=== PATIENT | female | born 1955 | race Caucasian/White ===

== ENCOUNTER 2020-07-28 13:13 | Inpatient (IN) | payer SELFPAY ==
[~2020-07-28] VITALS: Ht 157.5 cm; Wt 89.6 kg
[2020-07-28] MEDS ORDERED: NS IV 1000 ML 1,000 ML IV SCH ×2 (14:30→15:00)
--- NOTE | 2020-07-28 14:34 | ED GI ---
General Chief Complaint: Abdominal/GI Problems Stated Complaint: DIARRHEA/WEAKNESS Source of Information: Patient Exam Limitations: No Limitations History of Present Illness Date Seen by Provider: Jul 28, 2020 Time Seen by Provider: 14:32 Initial Comments To ER with reports of diarrhea and general weakness. She is had some intermitte nt abdominal cramping's and chills last week. No fever since then and feels better in that regard. Her diarrhea is mucousy but no apparent blood. This began after starting clindamycin for a dental and/or sinus infection on 06/29. She was taking a probiotic with as well but doesn't notice much improvement. Timing/Duration: Other Severity/Quality: Cramping Location: Generalized Abdomen Radiation: No Radiation Activities at Onset: None Allergies and Home Medications Allergies Coded Allergies: Penicillins (Verified Allergy, Unknown, 07/28/20) Patient Home Medication List Home Medication List Reviewed: Yes Review of Systems Review of Systems Constitutional: see HPI, chills, weakness EENTM: No Symptoms Reported Respiratory: No Symptoms Reported Cardiovascular: No Symptoms Reported Gastrointestinal: See HPI, Abdominal Pain; Denies Constipated; Diarrhea; Denies Nausea Genitourinary: No Symptoms Reported Musculoskeletal: no symptoms reported Skin: no symptoms reported Psychiatric/Neurological: No Symptoms Reported Endocrine: No Symptoms Reported Past Izrpukf-Lhhvqm-Sdycgc Hx Patient Social History Recent Foreign Travel: No Contact w/Someone Who Travel: No Physical Exam Vital Signs Vital Signs - First Documented 07/28/20 14:20 Temp 37.0 Pulse 91 Resp 17 B/P (MAP) 135/91 (106) Pulse Ox 98 O2 Delivery Room Air Capillary Refill : Height/Weight/BMI Height: '" Weight: lbs. oz. kg; BMI Method: General Appearance: WD/WN, no apparent distress, other (alert and oriented very pleasant ) Neck: non-tender, full range of motion Respiratory: no respiratory distress, no accessory muscle use Cardiovascular: regular rate, rhythm, no murmur Gastrointestinal: normal bowel sounds, non tender, soft Neurologic/Psychiatric: alert, normal mood/affect, oriented x 3 Skin: normal color, warm/dry Progress/Results/Core Measures Results/Orders Lab Results Laboratory Tests Test 07/28/20 14:25 07/28/20 14:40 Range/Units White Blood Count 17.9 H 4.3-11.0 10^3/uL Red Blood Count 4.96 3.80-5.11 10^6/uL Hemoglobin 14.1 11.5-16.0 g/dL Hematocrit 44 35-52 % Mean Corpuscular Volume 89 80-99 fL Mean Corpuscular Hemoglobin 28 25-34 pg Mean Corpuscular Hemoglobin Concent 32 32-36 g/dL Red Cell Distribution Width 14.0 10.0-14.5 % Platelet Count 264 130-400 10^3/uL Mean Platelet Volume 10.0 9.0-12.2 fL Immature Granulocyte % (Auto) 0 % Neutrophils (%) (Auto) 82 H 42-75 % Lymphocytes (%) (Auto) 11 L 12-44 % Monocytes (%) (Auto) 6 0-12 % Eosinophils (%) (Auto) 1 0-10 % Basophils (%) (Auto) 0 0-10 % Neutrophils # (Auto) 14.7 H 1.8-7.8 10^3/uL Lymphocytes # (Auto) 1.9 1.0-4.0 10^3/uL Monocytes # (Auto) 1.1 H 0.0-1.0 10^3/uL Eosinophils # (Auto) 0.2 0.0-0.3 10^3/uL Basophils # (Auto) 0.1 0.0-0.1 10^3/uL Immature Granulocyte # (Auto) 0.1 0.0-0.1 10^3/uL Neutrophils % (Manual) 77 % Lymphocytes % (Manual) 13 % Monocytes % (Manual) 5 % Band Neutrophils 5 % Dohle Bodies SLIGHT Blood Morphology Comment NORMAL Sodium Level 136 135-145 MMOL/L Potassium Level 4.2 3.6-5.0 MMOL/L Chloride Level 102 98-107 MMOL/L Carbon Dioxide Level 22 21-32 MMOL/L Anion Gap 12 5-14 MMOL/L Blood Urea Nitrogen 7 7-18 MG/DL Creatinine 1.02 0.60-1.30 MG/DL Estimat Glomerular Filtration Rate 55 BUN/Creatinine Ratio 7 Glucose Level 117 H 70-105 MG/DL Calcium Level 8.5 8.5-10.1 MG/DL Corrected Calcium 8.4 L 8.5-10.1 MG/DL Total Bilirubin 0.5 0.1-1.0 MG/DL Aspartate Amino Transf (AST/SGOT) 15 5-34 U/L Alanine Aminotransferase (ALT/SGPT) 22 0-55 U/L Alkaline Phosphatase 106 40-136 U/L Total Protein 7.7 6.4-8.2 GM/DL Albumin 4.1 3.2-4.5 GM/DL Urine Color YELLOW Urine Clarity CLEAR Urine pH 5.5 5-9 Urine Specific [place] 1.020 1.016-1.022 Urine Protein TRACE H NEGATIVE Urine Glucose (UA) NEGATIVE NEGATIVE Urine Ketones 1+ H NEGATIVE Urine Nitrite NEGATIVE NEGATIVE Urine Bilirubin NEGATIVE NEGATIVE Urine Urobilinogen 0.2 < = 1.0 MG/DL Urine Leukocyte Esterase 1+ H NEGATIVE Urine RBC (Auto) 2+ H NEGATIVE Urine RBC NONE /HPF Urine WBC 5-10 H /HPF Urine Crystals NONE /LPF Urine Bacteria MODERATE H /HPF Urine Casts NONE /LPF Urine Mucus MODERATE H /LPF Urine Culture Indicated YES Micro Results Microbiology 07/28/20 C. difficile GDH Antigen & Toxins - Final, Complete My Orders Orders - KARI LOVE APRN Cbc With Automated Diff (07/28/20 14:28) Comprehensive Metabolic Panel (07/28/20 14:28) Ua Culture If Indicated (07/28/20 14:28) C Difficile Ag + Toxin A/B. (07/28/20 14:28) Ed Iv/Invasive Line Start (07/28/20 14:28) Ns Iv 1000 Ml (Sodium Chloride 0.9%) (07/28/20 14:30) Manual Differential (07/28/20 14:25) Ns Iv 1000 Ml (Sodium Chloride 0.9%) (07/28/20 15:00) Ct Abdomen/Pelvis W (07/28/20 14:51) Iohexol Injection (Omnipaque 350 Mg/Ml 1 (07/28/20 15:00) Received Contrast (Hold Metformin- Contr (07/28/20 15:00) Ns (Ivpb) (Sodium Chloride 0.9% Ivpb Bag (07/28/20 15:00) Urine Culture (07/28/20 14:40) Medications Given in ED Current Medications Medications Dose Ordered Sig/Armando Route Start Time Stop Time Status Last Admin Dose Admin Iohexol 100 ml ONCE ONCE IV 07/28/20 15:00 07/28/20 15:01 DC 07/28/20 15:20 100 ML Sodium Chloride 100 ml ONCE ONCE IV 07/28/20 15:00 07/28/20 15:01 DC 07/28/20 15:20 80 ML Vital Signs/I&O 07/28/20 14:20 Temp 37.0 Pulse 91 Resp 17 B/P (MAP) 135/91 (106) Pulse Ox 98 O2 Delivery Room Air Departure Communication (Admissions) Time/Spoke to Admitting Phy: 15:57 Dr. Mcintosh called from radiology to discuss the CT findings of pancolitis with a bit of edema around the appendix though patient is not particularly tender around the appendix, she does have some intermittent abdominal cramping. Likely this is edema associated with the pancolitis. I spoke with Dr. COOK, we'll admit , clear liquids pain control nausea control oral vancomycin. I'll also consult director social in regards to the cause of the oral vancomycin being about $600 at [facility] prior to insurance. Patient reports she does not have insurance. Impression Primary Impression: C. difficile colitis Disposition: ADMITTED INPATIENT Condition: Stable Admissions Decision to Admit Reason: Admit from ER (General) Decision to Admit/Date: Jul 28, 2020 Time/Decision to Admit Time: 15:58 Departure-Patient Inst. Decision time for Depature: 15:57 Referrals: UNKNOWN (PCP/Family) Primary Care Physician KARI LOVE APRN Jul 28, 2020 14:34
[2020-07-28 14:35] LABS: BASOPHILS # (AUTO) 0.1 10^3/uL (0.0-0.1); BASOPHILS % (AUTO) 0 % (0-10); EOSINOPHILS # (AUTO) 0.2 10^3/uL (0.0-0.3); EOSINOPHILS % (AUTO) 1 % (0-10); HEMATOCRIT 44 % (35-52); HEMOGLOBIN 14.1 g/dL (11.5-16.0); LYMPHOCYTES # (AUTO) 1.9 10^3/uL (1.0-4.0); LYMPHOCYTES % (AUTO) 11 % (12-44); MEAN CORPUSCULAR HEMOGLOBIN 28 pg (25-34); MEAN CORPUSCULAR HGB CONC 32 g/dL (32-36); MEAN CORPUSCULAR VOLUME 89 fL (80-99); MONOCYTES # (AUTO) 1.1 10^3/uL (0.0-1.0); MONOCYTES % (AUTO) 6 % (0-12); NEUTROPHILS # (AUTO) 14.7 10^3/uL (1.8-7.8); NEUTROPHILS % (AUTO) 82 % (42-75); PLATELET COUNT 264 10^3/uL (130-400); WHITE BLOOD COUNT 17.9 10^3/uL (4.3-11.0)
[2020-07-28 14:44] LABS: ALBUMIN 4.1 GM/DL (3.2-4.5); POTASSIUM 4.2 MMOL/L (3.6-5.0)
[2020-07-28 14:45] LABS: CALCIUM 8.5 MG/DL (8.5-10.1)
[2020-07-28 14:46] LABS: TOTAL PROTEIN 7.7 GM/DL (6.4-8.2)
[2020-07-28 14:48] LABS: BILIRUBIN,TOTAL 0.5 MG/DL (0.1-1.0)
[2020-07-28 14:50] LABS: CREATININE SERUM 1.02 MG/DL (0.60-1.30)
[2020-07-28 14:56] LABS: BILIRUBIN,URINE NEGATIVE (NEGATIVE); CLARITY,URINE CLEAR; COLOR,URINE YELLOW; GLUCOSE, URINE (UA) NEGATIVE (NEGATIVE); KETONES,URINE 1+ (NEGATIVE); LEUKOCYTE ESTERASE ,URINE 1+ (NEGATIVE); NITRITE,URINE NEGATIVE (NEGATIVE); PH,URINE 5.5 (5-9); PROTEIN,URINE TRACE (NEGATIVE)
[2020-07-28] MEDS ORDERED: NS 100 ML (IVPB) BAG IV ONE (15:00)
[2020-07-28] MEDS ORDERED: IOHEXOL 350 MG/ML 100 ML (OMNIPAQUE 350) VIAL IV ONE (15:00)
[2020-07-28] MEDS ORDERED: HOLD METFORMIN - RECEIVED CONTRAST 20 ML VIAL IV SCH (15:00)
[2020-07-28 15:01] LABS: BAND NEUTROPHILS 5 %; LYMPHOCYTES % (MANUAL) 13 %; MONOCYTES % (MANUAL) 5 %; NEUTROPHILS % (MANUAL) 77 %; RBC MORPH NORMAL
[2020-07-28 15:13] LABS: BACTERIA,URINE MODERATE /HPF
--- NOTE | 2020-07-28 16:23 | Diagnostic Imaging Report ---
PROCEDURE: CT abdomen and pelvis with contrast. TECHNIQUE: Multiple contiguous axial images were obtained through the abdomen and pelvis after administration of intravenous contrast. Auto Exposure Controls were utilized during the CT exam to meet ALARA standards for radiation dose reduction. All CT scans use one or more of the following dose optimizing techniques: automated exposure control, MA and/or KvP adjustment based on patient size and exam type or iterative reconstruction. INDICATION: Abdominal pain. There are no prior studies available for comparison. FINDINGS: There does seem to be generalized thickening of the wall of much of the colon, particularly the ascending and transverse colon. This appearance does suggest pancolitis. The appendix itself was not particularly well visualized but does not seem to be abnormally thickened. There is distortion of the mesenteric fat in the right lower quadrant near the appendix, however. A surgical consult should be considered. There is no solid pelvic mass or free fluid collection evident. However, there is a sizable benign-appearing 7.2 x 8.1 cm cyst along the superior margin of the uterine fundus on the right. I suspect this arising from the right ovary. The liver is of lower density than usually seen. This does suggest fatty metamorphosis. The liver is borderline enlarged measuring 20 cm in length. There is no focal mass involving the liver. The spleen, pancreas, adrenals, kidneys, gallbladder, aorta and inferior vena cava and portal vein show no sign of an acute abnormality. The stomach is not well-distended and consequently difficult to assess. The lung bases are generally clear. There is a 3.5 mm noncalcified nodule in the left lower lobe. This has benign appearance. The bone windows show no sign of fracture or for destructive lesion. IMPRESSION: 1. There is generalized thickening of the wall of the colon, particularly the ascending and transverse colon. This appearance does suggest pancolitis. 2. There is also distortion of the mesenteric fat near the cecum but the appendix itself does not appear to be abnormally thickened. Even so, clinical follow-up regarding early appendicitis is recommended. 3. There is a large 8.1 cm cyst in the right adnexa. Most likely this is arising from the right ovary. If further study is desired, then ultrasound would be recommended. 4. There is no acute abnormality of the abdomen or pelvis noted otherwise. 5. There is borderline hepatomegaly and fatty metamorphosis. 6. These results were discussed with Eloy Fontenot APRN. Dictated by: Dictated on workstation # [id number]
--- NOTE | 2020-07-28 17:09 | NUR ---
AMANDA BRITTON admitted to room 403-1, with an admitting diagnosis of C DIF COLITIS, on 07/28/20 from ED via WC, accompanied by STAFF. AMANDA BRITTON introduced to surroundings, call light, bed controls, phone, TV, temperature control, lights, meal times, smoking policy, visitor policy, side rail policy, bathrooms and showers. Patient Rights given to patient in the handbook. AMANDA BRITTON verbalizes understanding that [facility] is not responsible for the loss or damage to any personal effects or valuables that are kept in the patients posession during their hospitalization. The following Patient Care Plans were discussed with the PT: Discharge Planning, [PAIN, AND C DIF. AMANDA BRITTON verbalizes understanding of Interdisciplinary Patient Education. Patient and/or family were informed about the Rapid Response Team and its purpose.
[2020-07-28 17:25] VITALS: BP 132/72
[2020-07-28] MEDS ORDERED: VANCOMYCIN 125 MG CAPSULE PO SCH (17:30)
[2020-07-28] MEDS ORDERED: HYOSCYAMINE 0.125 MG (LEVSIN) TAB PO PRN (17:30)
[2020-07-28] MEDS ORDERED: LACTATED RINGERS 1,000 ML IV SCH (17:30)
[2020-07-28] MEDS ORDERED: HYOSCYAMINE 0.125 MG (LEVSIN) TAB SL PRN (17:45)
[2020-07-28] MEDS ORDERED: ONDANSETRON 4 MG/2 ML (SDV) Z0FRAN IVP PRN ×2 (17:45)
[2020-07-28] MEDS ORDERED: fentaNYL INJECTION 100 MCG/2 ML AMP IVP PRN ×2 (17:45)
[2020-07-28] MEDS: VANCOMYCIN 125 MG CAPSULE PO SCH ×2 (17:54→22:33)
[2020-07-28] MEDS: LACTATED RINGERS 1,000 ML IV SCH (17:55)
--- NOTE | 2020-07-28 18:33 | NUR ---
DR. COOK NOTIFIED OF DVT PROPHYLAXIS. NO ORDER REC'D AT THIS TIME.
[2020-07-28 19:00] VITALS: BP 134/68
--- NOTE | 2020-07-28 21:38 | HISTORY AND PHYSICAL ---
DATE OF SERVICE: HISTORY OF PRESENT ILLNESS: The patient is a 64-year-old female, who presented to the Emergency Department with a 1-week history of crampy abdominal pain with copious diarrhea. She also reported mucusy stools; however, no blood. She states that she had a dental procedure performed on 06/2013 and was given clindamycin. Stool antigen test was performed, which was positive for Clostridium difficile. A CT scan was also performed, which did show pancolitis with mild wall thickening, no signs of toxic megacolon. She also does not report any fever nor chills. PAST MEDICAL HISTORY: Thyroid goiter, left optic meningioma. PAST SURGICAL HISTORY: None. ALLERGIES: No known drug allergies. MEDICATIONS: None. SOCIAL HISTORY: Negative smoke, negative alcohol. FAMILY HISTORY: Noncontributory. VITAL SIGNS: Temperature 36.6, blood pressure 134/63, pulse 92, respirations 18, pulse ox 96% on room air. REVIEW OF SYSTEMS: Well-nourished female currently in no acute distress. She is not experiencing any shortness of breath or difficulty breathing. No chest pain, palpitations, diaphoresis. No nausea, vomiting with a 1-week history of diarrhea and mucusy stools. No red blood per rectum, no dark tarry stools. No fever, chills, no recent inadvertent weight loss. All other review of systems negative. PHYSICAL EXAMINATION: CHEST: Clear. Good breath sounds bilaterally. HEART: Regular, no murmurs. EXTREMITIES: No lower extremity edema, negative Homans sign. HEENT: No scleral icterus. NECK: No cervical lymphadenopathy. ABDOMEN: Soft with mild diffuse tenderness. No peritoneal signs. SKIN: Warm, dry. LABORATORY DATA: WBC 17.9, hemoglobin 14.1, hematocrit 44, platelets 264. BUN 7, creatinine 1.02. Urinalysis, leukocyte esterase positive, bacteria positive. ASSESSMENT AND PLAN: A 64-year-old female with Clostridium difficile colitis secondary to a previous antibiotic use. We will proceed with treating her the first line therapy for C. difficile with vancomycin p.o. We will also start a clear liquid diet and proceed with bowel rest. Once she becomes less symptomatic with less abdominal pain and less diarrhea as well as frequency of stools, we will advance her diet and discharge her home with continuation of antibiotic therapy for a total of 10 days. Job ID: [id number] DocumentID: [id number] Dictated Date: 07/28/2020 21:23:39 Varnisher Plasticoater Date: 07/28/2020 21:38:30 Dictated By: TANNA COOK MD MTDD
[2020-07-29] VITALS (7 sets, daily range): BP systolic 120–133; BP diastolic 63–73
[2020-07-29] MEDS: LACTATED RINGERS 1,000 ML IV SCH ×4 (00:59→21:01)
[2020-07-29] MEDS: VANCOMYCIN 125 MG CAPSULE PO SCH ×6 (03:14→21:00)
[2020-07-29 07:08] LABS: BASOPHILS # (AUTO) 0.1 10^3/uL (0.0-0.1); BASOPHILS % (AUTO) 1 % (0-10); EOSINOPHILS # (AUTO) 0.3 10^3/uL (0.0-0.3); EOSINOPHILS % (AUTO) 3 % (0-10); HEMATOCRIT 37 % (35-52); HEMOGLOBIN 11.6 g/dL (11.5-16.0); LYMPHOCYTES % (AUTO) 21 % (12-44); MEAN CORPUSCULAR HEMOGLOBIN 28 pg (25-34); MEAN CORPUSCULAR HGB CONC 31 g/dL (32-36); MEAN CORPUSCULAR VOLUME 90 fL (80-99); MEAN PLATELET VOLUME 10.8 fL (9.0-12.2); MONOCYTES # (AUTO) 0.6 10^3/uL (0.0-1.0); MONOCYTES % (AUTO) 7 % (0-12); NEUTROPHILS # (AUTO) 6.3 10^3/uL (1.8-7.8); NEUTROPHILS % (AUTO) 68 % (42-75); PLATELET COUNT 183 10^3/uL (130-400); WHITE BLOOD COUNT 9.3 10^3/uL (4.3-11.0)
[2020-07-29 07:18] LABS: ALBUMIN 3.3 GM/DL (3.2-4.5)
[2020-07-29 07:19] LABS: CHLORIDE 108 MMOL/L (98-107); POTASSIUM 3.6 MMOL/L (3.6-5.0); SODIUM 142 MMOL/L (135-145)
[2020-07-29 07:20] LABS: CALCIUM 7.8 MG/DL (8.5-10.1)
[2020-07-29 07:21] LABS: GLUCOSE 86 MG/DL (70-105)
[2020-07-29 07:22] LABS: CARBON DIOXIDE 21 MMOL/L (21-32)
[2020-07-29 07:23] LABS: BILIRUBIN,TOTAL 0.3 MG/DL (0.1-1.0)
[2020-07-29 07:24] LABS: ALKALINE PHOSPHATASE 80 U/L (40-136)
[2020-07-29 07:25] LABS: CREATININE SERUM 0.84 MG/DL (0.60-1.30); GFR ESTIMATED > 60
[2020-07-29 07:26] LABS: BUN/CREATININE RATIO 6
[2020-07-29 07:27] LABS: ALANINE AMINOTRANSFERASE 16 U/L (0-55)
[2020-07-29] MEDS ORDERED: ENOXAPARIN 40 MG/0.4 ML (LOVENOX) SYR ONE (10:13)
--- NOTE | 2020-07-29 10:36 | Progress Note ---
Subjective Date Seen by a Provider: Jul 29, 2020 Time Seen by a Provider: 09:50 Subjective/Events-last exam Patient seen with Dr. Nick. Patient reports still having multiple diarrhea bowel movements. Reports abdominal pain is improved but still comes in waves. Denies any nausea or vomiting as well as no fever/chills. She reports that she has just been doing ice chips because when she drinks other liquids it does trigger some discomfort. Objective Exam Vital Signs Date Time Temp Pulse Resp B/P (MAP) Pulse Ox O2 Delivery O2 Flow Rate FiO2 07/29/20 08:38 Room Air 07/29/20 08:00 36.4 85 18 127/71 (89) 96 Room Air 07/29/20 04:00 37.3 87 18 124/63 (83) 97 Room Air 07/29/20 00:00 36.8 87 18 120/66 (84) 97 Room Air 07/28/20 19:30 96 Room Air 07/28/20 19:00 36.6 92 18 134/68 (90) 96 Room Air 07/28/20 18:18 97 Room Air 07/28/20 17:25 36.8 94 16 132/72 97 Room Air 07/28/20 17:00 37.0 97 17 126/82 (106) 98 Room Air 07/28/20 14:20 37.0 91 17 135/91 (106) 98 Room Air I & O 07/29/20 07:00 Intake Total 3400 ml Balance 3400 ml Capillary Refill : Less Than 3 SecondsLess Than 3 Seconds General Appearance: No Apparent Distress, WD/WN Neck: Full Range of Motion, Normal Inspection Respiratory: Normal Breath Sounds, No Accessory Muscle Use, No Respiratory Distress Cardiovascular: Regular Rate, Rhythm, No Edema Gastrointestinal: normal bowel sounds, soft, tenderness (diffuse) Extremity: Normal Inspection, Normal Range of Motion Neurologic/Psychiatric: Alert, Oriented x3 Skin: Normal Color, Warm/Dry Results Lab Laboratory Tests 07/28/20 14:25: White Blood Count 17.9H, Red Blood Count 4.96, Hemoglobin 14.1, Hematocrit 44, Mean Corpuscular Volume 89, Mean Corpuscular Hemoglobin 28, Mean Corpuscular Hemoglobin Concent 32, Red Cell Distribution Width 14.0, Platelet Count 264, Mean Platelet Volume 10.0, Immature Granulocyte % (Auto) 0, Neutrophils (%) (Auto) 82H, Lymphocytes (%) (Auto) 11L, Monocytes (%) (Auto) 6, Eosinophils (%) (Auto) 1, Basophils (%) (Auto) 0, Neutrophils # (Auto) 14.7H, Lymphocytes # (Auto) 1.9, Monocytes # (Auto) 1.1H, Eosinophils # (Auto) 0.2, Basophils # (Auto) 0.1, Immature Granulocyte # (Auto) 0.1, Neutrophils % (Manual) 77, Lymphocytes % (Manual) 13, Monocytes % (Manual) 5, Band Neutrophils 5, Dohle Bodies SLIGHT, Blood Morphology Comment NORMAL, Sodium Level 136, Potassium Level 4.2, Chloride Level 102, Carbon Dioxide Level 22, Anion Gap 12, Blood Urea Nitrogen 7, Creatinine 1.02, Estimat Glomerular Filtration Rate 55, BUN/Creatinine Ratio 7, Glucose Level 117H, Calcium Level 8.5, Corrected Calcium 8.4L, Total Bilirubin 0.5, Aspartate Amino Transf (AST/SGOT) 15, Alanine Aminotransferase (ALT/SGPT) 22, Alkaline Phosphatase 106, Total Protein 7.7, Albumin 4.1 07/28/20 14:40: Urine Color YELLOW, Urine Clarity CLEAR, Urine pH 5.5, Urine Specific [place] 1.020, Urine Protein TRACEH, Urine Glucose (UA) NEGATIVE, Urine Ketones 1+H, Urine Nitrite NEGATIVE, Urine Bilirubin NEGATIVE, Urine Urobilinogen 0.2, Urine Leukocyte Esterase 1+H, Urine RBC (Auto) 2+H, Urine RBC NONE, Urine WBC 5-10H, Urine Crystals NONE, Urine Bacteria MODERATEH, Urine Casts NONE, Urine Mucus MODERATEH, Urine Culture Indicated YES 07/29/20 06:15: White Blood Count 9.3, Red Blood Count 4.14, Hemoglobin 11.6, Hematocrit 37, Mean Corpuscular Volume 90, Mean Corpuscular Hemoglobin 28, Mean Corpuscular Hemoglobin Concent 31L, Red Cell Distribution Width 14.1, Platelet Count 183, Mean Platelet Volume 10.8, Immature Granulocyte % (Auto) 0, Neutrophils (%) (Auto) 68, Lymphocytes (%) (Auto) 21, Monocytes (%) (Auto) 7, Eosinophils (%) (Auto) 3, Basophils (%) (Auto) 1, Neutrophils # (Auto) 6.3, Lymphocytes # (Auto) 2.0, Monocytes # (Auto) 0.6, Eosinophils # (Auto) 0.3, Basophils # (Auto) 0.1, Immature Granulocyte # (Auto) 0.0, Sodium Level 142, Potassium Level 3.6, Chloride Level 108H, Carbon Dioxide Level 21, Anion Gap 13, Blood Urea Nitrogen 5L, Creatinine 0.84, Estimat Glomerular Filtration Rate > 60, BUN/Creatinine Ratio 6, Glucose Level 86, Calcium Level 7.8L, Corrected Calcium 8.4L, Total Bilirubin 0.3, Aspartate Amino Transf (AST/SGOT) 12, Alanine Aminotransferase (ALT/SGPT) 16, Alkaline Phosphatase 80, Total Protein 6.0L, Albumin 3.3 Microbiology 07/28/20 C. difficile GDH Antigen & Toxins - Final, Complete Assessment/Plan Assessment/Plan Assess & Plan/Chief Complaint A 64-year-old female with Clostridium difficile colitis secondary to a previous antibiotic use. VSS WBC 9.3 Continue oral vancomycin abx Bowel rest Pain and nausea medications as needed When less pain and diarrhea, then can start advancing her diet Clinical Quality Measures DVT/VTE Risk/Contraindication: Risk Factor Score Per Nursin RFS Level Per Nursing on Admit: 3=High MATTHEW RICK COLORER MACHINE Jul 29, 2020 10:36
[2020-07-29] MEDS: ENOXAPARIN 40 MG/0.4 ML (LOVENOX) SYR SC SCH (10:42)
[2020-07-30] MEDS: VANCOMYCIN 125 MG CAPSULE PO SCH ×6 (02:05→21:40)
[2020-07-30] MEDS: LACTATED RINGERS 1,000 ML IV SCH ×2 (03:45→10:29)
[2020-07-30 03:46] VITALS: BP 121/74
[2020-07-30 05:22] LABS: BASOPHILS # (AUTO) 0.1 10^3/uL (0.0-0.1); BASOPHILS % (AUTO) 1 % (0-10); EOSINOPHILS # (AUTO) 0.3 10^3/uL (0.0-0.3); EOSINOPHILS % (AUTO) 5 % (0-10); HEMATOCRIT 35 % (35-52); LYMPHOCYTES # (AUTO) 1.9 10^3/uL (1.0-4.0); LYMPHOCYTES % (AUTO) 29 % (12-44); MEAN CORPUSCULAR HEMOGLOBIN 28 pg (25-34); MEAN CORPUSCULAR HGB CONC 32 g/dL (32-36); MEAN CORPUSCULAR VOLUME 90 fL (80-99); MEAN PLATELET VOLUME 10.3 fL (9.0-12.2); MONOCYTES # (AUTO) 0.6 10^3/uL (0.0-1.0); MONOCYTES % (AUTO) 9 % (0-12); NEUTROPHILS # (AUTO) 3.6 10^3/uL (1.8-7.8); NEUTROPHILS % (AUTO) 56 % (42-75); PLATELET COUNT 185 10^3/uL (130-400); WHITE BLOOD COUNT 6.4 10^3/uL (4.3-11.0)
[2020-07-30 05:34] LABS: ALBUMIN 3.1 GM/DL (3.2-4.5); CHLORIDE 109 MMOL/L (98-107); POTASSIUM 3.5 MMOL/L (3.6-5.0); SODIUM 144 MMOL/L (135-145)
[2020-07-30 05:36] LABS: CALCIUM 7.8 MG/DL (8.5-10.1)
[2020-07-30 05:37] LABS: GLUCOSE 78 MG/DL (70-105); TOTAL PROTEIN 5.6 GM/DL (6.4-8.2)
[2020-07-30 05:38] LABS: BILIRUBIN,TOTAL 0.2 MG/DL (0.1-1.0); CARBON DIOXIDE 22 MMOL/L (21-32)
[2020-07-30 05:40] LABS: ALKALINE PHOSPHATASE 69 U/L (40-136); CREATININE SERUM 0.74 MG/DL (0.60-1.30); GFR ESTIMATED > 60
[2020-07-30 05:41] LABS: BUN/CREATININE RATIO 5
[2020-07-30 05:43] LABS: ALANINE AMINOTRANSFERASE 17 U/L (0-55)
[2020-07-30 08:00] VITALS: BP 140/73
[2020-07-30] MEDS: ENOXAPARIN 40 MG/0.4 ML (LOVENOX) SYR SC SCH (08:53)
[2020-07-30] MEDS ORDERED: ESOM20CA58 PO (11:31)
[2020-07-30] MEDS ORDERED: CHOL100048 PO (11:31)
[2020-07-30] MEDS ORDERED: KRIL1CAP19 PO (11:31)
[2020-07-30] MEDS ORDERED: LEVO150T PO (11:31)
[2020-07-30] MEDS ORDERED: ASPI-1238 PO (11:31)
[2020-07-30] MEDS ORDERED: CIDE500T PO (11:31)
--- NOTE | 2020-07-30 11:32 | NUR ---
SPOKE WITH THE PT (CALLED THE ROOM PHONE), AND CALLED [facility] TO COMPLETE THE MED REC PT GETS SYNTHROID 150 MCG (NAME BRAND) FROM [facility] IN [place]- LAST FILLED 06-08-2020 #90/90DS OTC MEDS: VIT D3 APPLE CIDER VINEGAR CAPS NEXIUM ASPIRIN 81 KRILL OIL 500
[2020-07-30 12:00] VITALS: BP 135/81
--- NOTE | 2020-07-30 12:16 | NUR ---
CM/JAJA visited with patient for social service consult. Plan: Patient will return home at time of discharge. The patient will benefit from 340B program. Follow up from Primary Care Physician Dr. Sánchez. MAU/JAJA spoke with the Pharmacist Pipe to discuss pricing on medication. According to the notes, Vancomycin cost 600 dollars before insurance and the patient does not have insurance. Pipe reports that through the 340B program at [facility] it will cost around 50 to 60 dollars. CM/SS informed the patient that the cost may vary depending on script. MAU/JAJA notified the primary physician. She verbalized understanding and gave thanks for the assistance. The patient is working on enrolling for Medicare due to turning 65 in November. She is already set up for a supplement but is having trouble with setting up an appointment with a employee relations representative. She states she'll focus on it after . MAU/JAJA will continue to follow.
--- NOTE | 2020-07-30 14:50 | NUR ---
"RD ASSESSMENT PMHx: thyroid goiter; PT INTERACTION: Pt was awake and pleasant during nutrition assessment. Pt states current appetite is not well, but it is improving. Note avg PO intake <25% meals, per chart review. Pt states following a regular diet at home, and has no issues with chewing/swallowing food. Pt states no recent issues with nausea, vomiting, or constipation. Pt states some recent issues with diarrhea, starting about 1w ago. Note last BM was 07/30, and pt not currently on bowel regimen, per chart review. Pt states recent 10# wt loss x2w. Note unable to determine recent wt hx, per chart review. ABNORMAL NUTRITION-RELATED LAB VALUES LOW: K 3.5; BUN 4; Ca 7.8; Pro 5.6; alb 3.1; HIGH: Cl 109; Est. kcal needs: 4881-5600 kcal | 15-18 kcal/kg Est. Pro needs: 90-108 g Pro | 1.0-1.2 g Pro/kg PES STATEMENT: Inadequate oral intake (NI-2.1) related to loss of appetite, and diarrhea, as evidenced by pt interview, and avg PO intake <25% meals. INTERVENTION: Continue with current diet order of Ulcer/Charles Mix Diet. Offered nutrition supplementation, but pt declined, stating they did not like the taste. Encouraged pt to eat when able. Will continue to follow and reassess as pt needs, intake, and status change. Evelyn TODD, MS RD LD [phone] cell"
[2020-07-30 16:00] VITALS: BP 129/68
[2020-07-30 19:40] VITALS: BP 145/71
[2020-07-30 23:58] VITALS: BP 128/74
[2020-07-31] MEDS: VANCOMYCIN 125 MG CAPSULE PO SCH ×3 (02:27→09:37)
[2020-07-31 03:49] VITALS: BP 120/78
[2020-07-31 08:00] VITALS: BP 143/75
[2020-07-31] MEDS ORDERED: VANC125C11 PO (11:11)
--- NOTE | 2020-07-31 11:18 | NUR ---
CM/SS finalized discharge. Plan: Patient discharged to home. The will come back into town to access the 340B savings through [employer]. Edda: MAU/SS contacted pharmacy this a.m. and they still didn't have anything showing for the savings program. The pharmacist Pipe contacted the hospitals registration to fix system errors and then worked with [facility]'s pharmacy to complete script savings. He got verification that it went through. No further needs.
== END 2020-07-31 10:00 | disposition home or self-care (01) | DRG 373 ==
LOC: EDUNIT# 13:13 → ER 13:15 → 4TH 15:52
PROVIDERS: ADMIT Surgery; ATTEND Surgery
DX: A04.72 Enterocolitis due to Clostridium difficile, not specified as recurrent (principal)
CPT/HCPCS: 36415; 74177; 80053; 81000; 85007; 85025; 85027; 87088; 87324; 87449

== ENCOUNTER 2021-03-11 18:00 | Emergency (ER) | payer MEDICARE, OTHER ==
[~2021-03-11] VITALS: Ht 157.5 cm; Wt 81.2 kg
[~2021-03-11 18:00] MED LIST: ASPI-1238 PO; CHOL100048 PO; CIDE500T PO; ESOM20CA58 PO; KRIL1CAP19 PO; LEVO150T PO; VANC125C11 PO
[2021-03-11] MEDS ORDERED: LIDOCAINE 2% VISCOUS 15 ML UDC PO ONE (19:00)
[2021-03-11] MEDS ORDERED: FAMOTIDINE 20MG/2ML IV (PEPCID) IVP ONE (19:00)
[2021-03-11] MEDS ORDERED: ANTACID SUSP 30 ML UDC (MYLANTA) PO ONE (19:00)
--- NOTE | 2021-03-11 19:06 | ED GU-Female ---
General Chief Complaint: Abdominal/GI Problems Stated Complaint: ABD PAIN / CONSTIPATION Nursing Triage Note: PT ARRIVED BY PRIVATE VEHICLE WITH . PT HAS CHIEF COMPLAINT OF CONSTIPATION. PT WAS ALERT, ORIENTED X 4 AND AMBULATORY. PT STATED SHE HAS NOT HAD A BOWEL MOVEMENT SINCE THURSDAY OF LAST WEEK. PT HASN'T BEEN ABLE TO SINCE CHEMO AT SHE STATED. PT STATED SHE STARTED TO HAVE RECTAL BLEEDING AND A MASS IS AT HER RECTUM SHE STATED. PT HAS BEEN HAVING HEARTBURN. PT HAS TRIED MIRALAX, MAG, AND SENNA. PT IS ALLERGIC TO PENICILLIN, CLINDAMYCIN, AND SURGICAL GLUE. PT DENIES SMOKING, ALCOHOL OR DRUG USE. VITALS WERE DONE ON ARRIVAL AND PATIENT WAS GIVEN A WARM BLANKET. Source: patient Exam Limitations: no limitations History of Present Illness Date Seen by Provider: Mar 11, 2021 Time Seen by Provider: 19:02 Initial Comments To ER with constipation for 4 days not having bowel movement and not passing gas per denies abdominal pain. She has history of IIIC1 FIGO grade 2 endometrioid adenocarcinoma not totally think 6 months which is sometime in April currently undergoing chemotherapy and radiation at the [facility]. She has recently had port placement and underwent total hysterectomy. Does c/o some rectal pain and bleeding after straining for bowel movement today. She has tried MiraLAX, several other oral laxatives at home without relief. She also c/o acid reflux. Timing/Duration: constant Severity/Quality: moderate, other Location: unknown Radiation: none Activities at Onset: none Prior Genitourinary Problems: none Associated Symptoms: denies symptoms Allergies and Home Medications Allergies Coded Allergies: Penicillins (Verified Allergy, Unknown, 07/28/20) Home Medications Aspirin 81 Mg Tablet.dr, 81 MG PO DAILY, (Reported) Cholecalciferol (Vitamin D3) 25 Mcg Capsule, 25 MCG PO DAILY, (Reported) Cider Vinegar 500 Mg Tablet, 500 MG PO DAILY, (Reported) Esomeprazole Magnesium 20 Mg Capsule.dr, 20 MG PO HS, (Reported) Krill/Om-3/Dha/Epa/Phospho/Ast 1 Each Capsule, 1 EACH PO DAILY, (Reported) Levothyroxine Sodium 150 Mcg Tablet, 150 MCG PO 0700, (Reported) USES NAME BRAND Vancomycin HCl 125 Mg Capsule, 125 MG PO QID Prescribed by: TANNA COOK on 12/15/20 1111 Patient Home Medication List Home Medication List Reviewed: Yes Review of Systems Review of Systems Constitutional: see HPI EENTM: see HPI Respiratory: no symptoms reported Cardiovascular: no symptoms reported Gastrointestinal: constipation Genitourinary: no symptoms reported Musculoskeletal: no symptoms reported Skin: no symptoms reported Psychiatric/Neurological: No Symptoms Reported Endocrine: No Symptoms Reported Hematologic/Lymphatic: No Symptoms Reported Past Ppvkmji-Uycmvk-Boxldn Hx Patient Social History Tobacco Use?: No Smoking Status: Never a Smoker Substance use?: No Alcohol Use?: No Pt feels they are or have been: No Seasonal Allergies Seasonal Allergies: No Past Medical History Surgeries: Yes (craniotomy) Respiratory: No Currently Using CPAP: No Currently Using BIPAP: No Cardiac: No Neurological: No (brain tumor-resolved with proton treatments) Genitourinary: No Gastrointestinal: Yes C-Diff Musculoskeletal: No Endocrine: Yes (due to proton treatment from brain tumor) Hypothyroidsim HEENT: No Cancer: No Psychosocial: No Integumentary: No Blood Disorders: No Physical Exam Vital Signs Vital Signs - First Documented 03/11/21 18:08 Temp 36.7 Pulse 102 Resp 20 B/P (MAP) 134/97 (109) Pulse Ox 99 O2 Delivery Room Air Capillary Refill : Less Than 3 Seconds Height, Weight, BMI Height: '" Weight: lbs. oz. kg; 32.00 BMI Method: General Appearance: WD/WN, no apparent distress HEENT: PERRL/EOMI, normal ENT inspection Neck: non-tender, full range of motion Respiratory: normal breath sounds, no respiratory distress, no accessory muscle use Gastrointestinal: normal bowel sounds, non tender, soft, other (incisions clean dry intact) Rectal: hemorrhoids Extremities: normal range of motion, non-tender Neurologic/Psychiatric: alert, normal mood/affect, oriented x 3 Skin: normal color Progress/Results/Core Measures Suspected Sepsis SIRS Temperature: Pulse: 102 Respiratory Rate: 20 Laboratory Tests 03/11/21 19:00: White Blood Count 9.0 Blood Pressure 134 /97 Mean: 109 Laboratory Tests 03/11/21 19:00: Creatinine 0.79, Platelet Count 243, Total Bilirubin 0.6 Results/Orders Lab Results Laboratory Tests Test 03/11/21 19:00 Range/Units White Blood Count 9.0 4.3-11.0 10^3/uL Red Blood Count 4.66 3.80-5.11 10^6/uL Hemoglobin 13.3 11.5-16.0 g/dL Hematocrit 41 35-52 % Mean Corpuscular Volume 88 80-99 fL Mean Corpuscular Hemoglobin 29 25-34 pg Mean Corpuscular Hemoglobin Concent 33 32-36 g/dL Red Cell Distribution Width 13.8 10.0-14.5 % Platelet Count 243 130-400 10^3/uL Mean Platelet Volume 10.5 9.0-12.2 fL Immature Granulocyte % (Auto) 0 % Neutrophils (%) (Auto) 81 H 42-75 % Lymphocytes (%) (Auto) 14 12-44 % Monocytes (%) (Auto) 1 0-12 % Eosinophils (%) (Auto) 3 0-10 % Basophils (%) (Auto) 1 0-10 % Neutrophils # (Auto) 7.3 1.8-7.8 10^3/uL Lymphocytes # (Auto) 1.3 1.0-4.0 10^3/uL Monocytes # (Auto) 0.1 0.0-1.0 10^3/uL Eosinophils # (Auto) 0.3 0.0-0.3 10^3/uL Basophils # (Auto) 0.1 0.0-0.1 10^3/uL Immature Granulocyte # (Auto) 0.0 0.0-0.1 10^3/uL Sodium Level 142 135-145 MMOL/L Potassium Level 4.0 3.6-5.0 MMOL/L Chloride Level 104 98-107 MMOL/L Carbon Dioxide Level 24 21-32 MMOL/L Anion Gap 14 5-14 MMOL/L Blood Urea Nitrogen 13 7-18 MG/DL Creatinine 0.79 0.60-1.30 MG/DL Estimat Glomerular Filtration Rate 73 BUN/Creatinine Ratio 16 Glucose Level 118 H 70-105 MG/DL Calcium Level 9.0 8.5-10.1 MG/DL Corrected Calcium 8.9 8.5-10.1 MG/DL Total Bilirubin 0.6 0.1-1.0 MG/DL Aspartate Amino Transf (AST/SGOT) 18 5-34 U/L Alanine Aminotransferase (ALT/SGPT) 37 0-55 U/L Alkaline Phosphatase 84 40-136 U/L Total Protein 7.5 6.4-8.2 GM/DL Albumin 4.1 3.2-4.5 GM/DL My Orders Orders - KARI LOVE WHEEL MOLDER Cbc With Automated Diff (03/11/21 18:52) Comprehensive Metabolic Panel (03/11/21 18:52) Ed Iv/Invasive Line Start (03/11/21 18:52) Ct Abdomen/Pelvis W (03/11/21 18:52) Antacid Suspension (Mylanta Suspension (03/11/21 19:00) Lidocaine 2% Viscous 15 Ml (Xylocaine Vi (03/11/21 19:00) Famotidine Injection (Pepcid Injection) (03/11/21 19:00) Iohexol Injection (Omnipaque 350 Mg/Ml 1 (03/11/21 20:00) Received Contrast (Hold Metformin- Contr (03/11/21 20:00) Sodium Chloride Flush (Catheter Flush Sy (03/11/21 20:00) Ns (Ivpb) (Sodium Chloride 0.9% Ivpb Bag (03/11/21 20:00) Na Phos/Na Biphos Enema (Fleet Enema Valdez (03/11/21 20:30) Lidocaine 2% (Urojet) (Xylocaine Urojet) (03/11/21 20:30) Na Phos/Na Biphos Enema (Fleet Enema Valdez (03/11/21 21:15) Lidocaine 2% Viscous 15 Ml (Xylocaine Vi (03/11/21 21:30) Medications Given in ED Current Medications Medications Dose Ordered Sig/Armando Route Start Time Stop Time Status Last Admin Dose Admin Al Hydrox/Mg Hydrox/Simethicone 30 ml ONCE ONCE PO 03/11/21 19:00 03/11/21 19:01 DC 03/11/21 19:18 30 ML Famotidine 20 mg ONCE ONCE IVP 03/11/21 19:00 03/11/21 19:01 DC 03/11/21 19:18 20 MG Iohexol 100 ml ONCE ONCE IV 03/11/21 20:00 03/11/21 20:01 DC 03/11/21 20:00 100 ML Lidocaine HCl 10 ml ONCE ONCE PO 03/11/21 19:00 03/11/21 19:01 DC 03/11/21 19:18 10 ML Lidocaine HCl 10 ml ONCE ONCE TOP 7/26/21 20:30 03/11/21 20:31 DC 03/11/21 20:27 10 ML Lidocaine HCl 15 ml ONCE ONCE MM 03/11/21 21:30 03/11/21 21:31 DC 03/11/21 21:39 15 ML Sodium Biphosphate/ Sodium Phosphate 1 ea ONCE ONCE KS 03/11/21 20:30 03/11/21 20:31 DC 03/11/21 20:27 1 EA Sodium Biphosphate/ Sodium Phosphate 1 ea ONCE ONCE KS 03/11/21 21:15 03/11/21 21:16 DC 03/11/21 21:18 1 EA Sodium Chloride 10 ml NEEDED PRN IV 03/11/21 20:00 03/11/21 20:00 10 ML Sodium Chloride 100 ml ONCE ONCE IV 03/11/21 20:00 03/11/21 20:01 DC 03/11/21 20:00 80 ML Vital Signs/I&O 03/11/21 18:08 Temp 36.7 Pulse 102 Resp 20 B/P (MAP) 134/97 (109) Pulse Ox 99 O2 Delivery Room Air Capillary Refill : Less Than 3 Seconds Blood Pressure Mean: 109 Departure Communication (Admissions) 211-Did a manual digital disimpaction got a moderate amount of hard stool out. Followed that with a fleets enema which resulted in more stool in the commode. The rectal pressure subsided. She was given a second fleets enema. NAME: AMANDA BRITTON [facility] REC#: [id number] PT STATUS: REG ER : 1955 PHYSICIAN: KARI LOVE APRN ADMIT DATE: 03/11/21/ER Draft Date of Exam:03/11/21 CT ABDOMEN/PELVIS W PROCEDURE: CT abdomen and pelvis with contrast. TECHNIQUE: Multiple contiguous axial images were obtained through the abdomen and pelvis after administration of intravenous contrast. Auto Exposure Controls were utilized during the CT exam to meet ALARA standards for radiation dose reduction. All CT scans use one or more of the following dose optimizing techniques: automated exposure control, MA and/or KvP adjustment based on patient size and exam type or iterative reconstruction. DATE: March 11, 2021. COMPARISON: CT abdomen pelvis July 28, 2020. INDICATION: 65-year-old female, lack of bowel movement for 5 days. History of uterine cancer. FINDINGS: The visualized portions of the lung bases are grossly clear. The heart is not enlarged. There is no identified pericardial effusion. The liver is unremarkable in size and contour. There is a low-attenuation lesion in the left lobe of the liver on axial image 19 measuring 2.1 x 1.9 cm in size with indeterminate internal attenuation value. On July 28, 2020, this lesion previously measured 2.1 x 2.0 cm in size and is unchanged in size since that time. The main, right, and left portal veins are patent. The gallbladder is unremarkable. There is no biliary ductal dilation. The main pancreatic duct is not abnormally dilated. Unremarkable appearance of the pancreatic parenchyma. The spleen is normal in size. The adrenal glands are unremarkable. There is a low-attenuation right renal lesion measuring 4.4 cm in size compatible with a benign cyst. The urinary collecting systems are not distended. There is no identified renal or ureteral stone. There is no identified abnormal urinary bladder wall thickening. There is a cystic mass along the right pelvic sidewall and adjacent to the right distal external iliac vasculature measuring 6.0 x 4.1 cm in size which is a new finding since the comparison exam. A lymphocele or nonspecific fluid collection are in the differential diagnosis. There is a moderate to large volume of stool in the rectum which is mildly distended. There is additional mild distention of the colon. There is no evidence to suggest acute appendicitis. There are no abnormally dilated segments of small bowel. There is no free intraperitoneal air. There is no drainable fluid collection. There is no free pelvic fluid. There is no identified abnormally enlarged lymph node in the abdomen or pelvis meeting CT size criteria for adenopathy. There are multilevel degenerative changes of the spine. IMPRESSION: CT ABDOMEN AND PELVIS. 1. Cystic mass adjacent of the distal right external iliac vasculature along the right pelvic sidewall which is new since comparison exam and measures 6.0 x 4.1 cm in size. This may relate to a lymphocele or other nonspecific fluid collection. 2. Moderate to large volume stool in the rectum with mild distention of the rectum. There is additional mild colonic distention without evidence to specifically suggest a colonic obstruction. 3. Indeterminate liver lesions stable since at least July 28, 2020. Dedicated liver mass protocol CT would be recommended for further evaluation. Dictated on workstation # [id number] Dict: 03/11/212009 Trans: 03/11/212023 [facility] [id number] Interpreted by: ARLENE WATERS MD Electronically signed by: Impression Primary Impression: Constipation Disposition: 01 HOME, SELF-CARE Condition: Stable Departure-Patient Inst. Decision time for Depature: 21:18 Referrals: NO,LOCAL PHYSICIAN (PCP/Family) Primary Care Physician Patient Instructions: Constipation, Adult (DC) Add. Discharge Instructions: Your CAT scan images have been sent electronically to the [facility] so that they can view them. Apply the topical lidocaine to the anus as needed for any pain. All discharge instructions reviewed with patient and/or family. Voiced understanding. KARI LOVE WHEEL MOLDER Mar 11, 2021 19:06
[2021-03-11 19:11] LABS: BASOPHILS # (AUTO) 0.1 10^3/uL (0.0-0.1); BASOPHILS % (AUTO) 1 % (0-10); EOSINOPHILS # (AUTO) 0.3 10^3/uL (0.0-0.3); EOSINOPHILS % (AUTO) 3 % (0-10); HEMATOCRIT 41 % (35-52); HEMOGLOBIN 13.3 g/dL (11.5-16.0); LYMPHOCYTES # (AUTO) 1.3 10^3/uL (1.0-4.0); LYMPHOCYTES % (AUTO) 14 % (12-44); MEAN CORPUSCULAR HEMOGLOBIN 29 pg (25-34); MEAN CORPUSCULAR HGB CONC 33 g/dL (32-36); MEAN CORPUSCULAR VOLUME 88 fL (80-99); MEAN PLATELET VOLUME 10.5 fL (9.0-12.2); MONOCYTES # (AUTO) 0.1 10^3/uL (0.0-1.0); MONOCYTES % (AUTO) 1 % (0-12); NEUTROPHILS # (AUTO) 7.3 10^3/uL (1.8-7.8); NEUTROPHILS % (AUTO) 81 % (42-75); PLATELET COUNT 243 10^3/uL (130-400)
[2021-03-11 19:24] LABS: ALBUMIN 4.1 GM/DL (3.2-4.5)
[2021-03-11 19:26] LABS: TOTAL PROTEIN 7.5 GM/DL (6.4-8.2)
[2021-03-11 19:28] LABS: BILIRUBIN,TOTAL 0.6 MG/DL (0.1-1.0)
[2021-03-11 19:30] LABS: CREATININE SERUM 0.79 MG/DL (0.60-1.30)
[2021-03-11] MEDS ORDERED: NS 100 ML (IVPB) BAG IV ONE (20:00)
[2021-03-11] MEDS ORDERED: IOHEXOL 350 MG/ML 100 ML (OMNIPAQUE 350) VIAL IV ONE (20:00)
[2021-03-11] MEDS ORDERED: CATHETER FLUSH 10 ML SYR IV PRN (20:00)
[2021-03-11] MEDS ORDERED: HOLD METFORMIN - RECEIVED CONTRAST 20 ML VIAL IV SCH (20:00)
--- NOTE | 2021-03-11 20:25 | Diagnostic Imaging Report ---
PROCEDURE: CT abdomen and pelvis with contrast. TECHNIQUE: Multiple contiguous axial images were obtained through the abdomen and pelvis after administration of intravenous contrast. Auto Exposure Controls were utilized during the CT exam to meet ALARA standards for radiation dose reduction. All CT scans use one or more of the following dose optimizing techniques: automated exposure control, MA and/or KvP adjustment based on patient size and exam type or iterative reconstruction. DATE: March 11, 2021. COMPARISON: CT abdomen pelvis July 28, 2020. INDICATION: 65-year-old female, lack of bowel movement for 5 days. History of uterine cancer. FINDINGS: The visualized portions of the lung bases are grossly clear. The heart is not enlarged. There is no identified pericardial effusion. The liver is unremarkable in size and contour. There is a low-attenuation lesion in the left lobe of the liver on axial image 19 measuring 2.1 x 1.9 cm in size with indeterminate internal attenuation value. On July 28, 2020, this lesion previously measured 2.1 x 2.0 cm in size and is unchanged in size since that time. The main, right, and left portal veins are patent. The gallbladder is unremarkable. There is no biliary ductal dilation. The main pancreatic duct is not abnormally dilated. Unremarkable appearance of the pancreatic parenchyma. The spleen is normal in size. The adrenal glands are unremarkable. There is a low-attenuation right renal lesion measuring 4.4 cm in size compatible with a benign cyst. The urinary collecting systems are not distended. There is no identified renal or ureteral stone. There is no identified abnormal urinary bladder wall thickening. There is a cystic mass along the right pelvic sidewall and adjacent to the right distal external iliac vasculature measuring 6.0 x 4.1 cm in size which is a new finding since the comparison exam. A lymphocele or nonspecific fluid collection are in the differential diagnosis. There is a moderate to large volume of stool in the rectum which is mildly distended. There is additional mild distention of the colon. There is no evidence to suggest acute appendicitis. There are no abnormally dilated segments of small bowel. There is no free intraperitoneal air. There is no drainable fluid collection. There is no free pelvic fluid. There is no identified abnormally enlarged lymph node in the abdomen or pelvis meeting CT size criteria for adenopathy. There are multilevel degenerative changes of the spine. IMPRESSION: CT ABDOMEN AND PELVIS. 1. Cystic mass adjacent of the distal right external iliac vasculature along the right pelvic sidewall which is new since comparison exam and measures 6.0 x 4.1 cm in size. This may relate to a lymphocele or other nonspecific fluid collection. 2. Moderate to large volume stool in the rectum with mild distention of the rectum. There is additional mild colonic distention without evidence to specifically suggest a colonic obstruction. 3. Indeterminate liver lesions stable since at least July 28, 2020. Dedicated liver mass protocol CT would be recommended for further evaluation. Dictated by: Dictated on workstation # [id number]
[2021-03-11] MEDS ORDERED: FLEET ENEMA ADULT 1 EA BTL PR ONE ×2 (20:30→21:15)
[2021-03-11] MEDS ORDERED: LIDOCAINE UROJET 2% GEL 10 ML PKG TOP ONE (20:30)
[2021-03-11] MEDS ORDERED: LIDOCAINE 2% VISCOUS 15 ML UDC MM ONE (21:30)
[2021-03-11 21:45] VITALS: BP 118/87
== END 2021-03-11 21:45 | disposition home or self-care (01) ==
LOC: EDUNIT# 18:00 → ER 18:01
DX: K59.00 Constipation, unspecified (principal); K21.9 Gastro-esophageal reflux disease without esophagitis; C54.1 Malignant neoplasm of endometrium; E03.9 Hypothyroidism, unspecified; Z88.0 Allergy status to penicillin; Z79.82 Long term (current) use of aspirin; Z79.890 Hormone replacement therapy; Z90.710 Acquired absence of both cervix and uterus
CPT/HCPCS: 36415; 74177; 80053; 85025; 96374

== ENCOUNTER 2021-06-17 09:44 | Emergency (ER) | payer MEDICARE, OTHER ==
[~2021-06-17] VITALS: Ht 157.5 cm; Wt 76.7 kg
--- OUTSIDE RECORDS SUMMARY | 2021-06-17 09:54 | XMS REPORT | Encounter Summary ---
Author Author [facility] Organization [facility] Address Unknown Phone Unavailable Care Team Providers Care Pitting Machine Operator Name Role Phone Steph Sánchez MD PCP Encounter Details Care Team Description Date Type Department Sharon Crowley Endometrial cancer (HCC) 06/06/2021 Orders Only Radiation Oncology: [facility] [address] [place] [address]. [place] [id number] Social History Date Tobacco Use Types Packs/Day Years Used Never Smoker Smokeless Tobacco: Never Used Sex Assigned at Date Recorded Female 02/08/2021 1:20 PM CDT Date Recorded COVID-19 Exposure Response 06/06/2021 11:17 AM CDT In the last month, have you been in contact with No / Unsure someone who was confirmed or suspected to have Coronavirus / COVID-19? documented as of this encounter Functional Status Date of Assessment Functional Status Response 03/07/2021 Does the patient have a hearing impairment: No 03/07/2021 Does the patient have a visual impairment: Yes 03/07/2021 Does the patient have impaired ambulation: No 03/07/2021 Does the patient have an activity of daily living No (ADL) impairment: 03/07/2021 Does the patient have an instrumental activity of No daily living (IADL) impairment: Date of Assessment Cognitive Status Response 03/07/2021 Does the patient have a cognitive impairment: No documented as of this encounter Plan of Treatment Not on filedocumented as of this encounter Visit Diagnoses Diagnosis Endometrial cancer (HCC) Malignant neoplasm of corpus uteri, exc ept isthmus documented in this encounter Orders First Ordered Date Lab Orders Without Results Count Last Ordere d Date CBC AND DIFF 1 06/06/2021 COMPREHENSIVE METABOLIC PANEL 1 06/06/20 21 documented in this encounter Additional Health Concerns Assessment Noted Time A fall risk assessment has been completed for the pat ient 06/06/2021 12:09 PM CDT documented as of this encounter
--- OUTSIDE RECORDS SUMMARY | 2021-06-17 09:54 | XMS REPORT | Encounter Summary ---
Author Author [facility] Organization [facility] Address Unknown Phone Unavailable Care Team Providers Care Forestry Biology Specialist Name Role Phone Steph Sánchez MD PCP Encounter Details Care Team Description Date Type Department Luis A Steiner MD [address] [facility] [place] [address] Malignant neoplasm of endometrium (HCC) 05/30/2021 Hospital Laboratory: Main Ca mpus, Encounter [facility] [address] [facility] [facility] [address], [address] [place] [id number] Social History Date Tobacco Use Types Packs/Day Years Used Never Smoker Smokeless Tobacco: Never Used Sex Assigned at Date Recorded Female 02/08/2021 1:20 PM CDT Date Recorded COVID-19 Exposure Response 05/30/2021 11:14 AM CDT In the last month, have [...] impairment: No documented as of this encounter Medications at Time of Discharge Start Date End Date Medication Sig Dispensed Refills acetaminophen (TYLENOL Take 500 mg 0 EXTRA STRENGTH) 500 mg by mouth tablet every 6 hours as needed for Pain. 05/15/2021 buPROPion HCL SR Take one 60 tablet 2 (WELLBUTRIN SR) 150 mg tablet by tablet mouth twice daily. Take once a day for 1 week. Then increase to twice daily. 12/26/2020 Cholecalciferol (Vitamin Take 2,000 0 D3) 50 mcg (2,000 unit) Units by cap mouth daily. 2000 IU Cranberry 400 mg cap Take by 0 mouth. 02/11/2021 dexAMETHasone (DECADRON) Take two 36 tablet 0 4 mg tabletIndications: tablets by Endometrial cancer (HCC) mouth daily. On Days 2-4 of each cycle. diphenhydrAMINE Take 25 mg by 0 (BENADRYL) 25 mg capsule mouth nightly as needed (allergies, sleep). 12/28/[address] (NEXIUM) Take 20 mg by 0 20 mg capsule mouth daily. levothyroxine (SYNTHROID) Take 150 mcg 0 150 mcg tablet by mouth daily 30 minutes before breakfast. Uses brand name Levothyroxine (not a generic) 02/26/2021 lidocaine/prilocaine Apply 30 g 1 (EMLA) 2.5/2.5 % topical topically to cream affected area as Needed. loperamide HCl (IMODIUM Take 2 mg by 0 PO) mouth as Needed. 02/11/2021 ondansetron (ZOFRAN) 8 mg Take one 30 tablet 3 tabletIndications: tablet by Endometrial cancer ([facility]) mouth every 8 hours as needed (nausea and vomiting). 03/27/2021 polyethylene glycol 3350 Take one 12 each 3 (MIRALAX) 17 g packet packet by mouth daily. 02/11/2021 prochlorperazine maleate Take one 30 tablet 3 (COMPAZINE) 10 mg tablet by tabletIndications: mouth every 6 Endometrial cancer ([facility]) hours as needed for Nausea or Vomiting. First choice for nausea for the first 3 days after chemotherapy 03/27/2021 senna (SENNA-GEN) 8.6 mg Take one 180 tablet 0 tablet tablet to two tablets by mouth twice daily. documented as of this encounter Discharge Disposition Code Departure Means Destination Disposition Home Home or Self Care documented in this encounter Plan of Treatment Not on filedocumented as of this encounter Procedures Comments Procedure Name Priority Date/Time Associated Diag nosis UA REFLEX LABEL 05/30/2021 Malignant neoplasm of 12:50 PM CDT endometrium (HCC) URINALYSIS MICROSCOPIC 05/30/2021 REFLEX TO CULTURE 12:50 PM CDT HC URINALYSIS UAR 05/30/2021 12:50 PM CDT documented in this encounter Results * URINALYSIS MICROSCOPIC REFLEX TO CULTURE (05/30/2021 12:50 PM CDT) WBCs,UA 0-2 0 - 2 /HPF [facility] RBCs,UA 0-2 0 - 3 /HPF [facility] Comment,UA Criteria for reflex to culture [facility] are WBC>10, Positive Nitrite, and/or >=+1 leukocytes. If quantity is not sufficient, an addendum will follow. MucousUA TRACE [facility] Squamous 0-2 0 - 5 [facility] Epithelial Cells Specimen Performing Organization Address City/[facility] P shahnaz Number [facility] [address] [place] [address] * URINALYSIS DIPSTICK REFLEX TO CULTURE (05/30/2021 12:50 PM CDT) Color,UA STRAW [facility] Turbidity,UA CLEAR CLEAR-CLEAR [facility] Specific 1.002 (L) 1.003 - 1.035 [facility] [place]-Urine pH,UA 7.0 5.0 - 8.0 [facility] Protein,UA NEG NEG-NEG [facility] Glucose,UA NEG NEG-NEG [facility] Ketones,UA NEG NEG-NEG [facility] Bilirubin,UA NEG NEG-NEG [facility] Blood,UA NEG NEG-NEG [facility] Urobilinogen,UA NORMAL NORM-NORMAL [facility] Nitrite,UA NEG NEG-NEG [facility] Leukocytes,UA NEG NEG-NEG [facility] Urine Ascorbic NEG NEG-NEG [facility] Acid, UA Specimen Performing Organization Address [facility] P shahnaz Number [facility] [address] [place] [address] * UA REFLEX LABEL (05/30/2021 12:50 PM CDT) UA Reflex Criteria for reflex to culture [facility] Culture are WBC>10, Positive Nitrit e, and/or >=+1 leukocytes. If quantity is not sufficient, an addendum will follow. Specimen Performing Organization Address City/State/ZIP Code P shahnaz Number [facility] [address] [place] [address] documented in this encounter Visit Diagnoses Diagnosis Malignant neoplasm of endometrium (HCC) Malignant neoplasm of corpus uteri, exc ept isthmus documented in this encounter Additional Health Concerns Assessment Noted Time A fall risk assessment has been completed for the pat ient 05/30/2021 12:30 PM CDT documented as of this encounter
--- OUTSIDE RECORDS SUMMARY | 2021-06-17 09:54 | XMS REPORT | Encounter Summary ---
Author Author [facility] Organization [facility] Address Unknown Phone Unavailable Care Team Providers Care Brand Marketing Manager Name Role Phone Steph Sánchez MD PCP Encounter Details Care Team Description Date Type Department [facility] Treatment Data 06/05/2021 Orders Only Radiation Oncology: [facility] [address] [facility] [place] [phone] Social History Date Tobacco Use Types Packs/Day [...] Procedure Name Priority Date/Time Associated Diag nosis RAD ONC TREATMENT Routine 06/05/2021 INFORMATION 11:36 AM CDT documented in this encounter Results * RAD ONC TREATMENT INFORMATION (06/05/2021 11:36 AM CDT) Course ID C1-Pelvis [facility] RAD ONC TREATMENT First Treatment 05-09-2021 11:43AM [facility] RAD ONC Date TREATMENT Last Treatment 06-05-2021 11:36AM [facility] RAD ONC Date TREATMENT Treatment 27 KU RAD ONC Elapsed Days TREATMENT Reference Point Pelvis [facility] RAD ONC ID TREATMENT Dosage Given To 36 [facility] RAD ONC Date TREATMENT Session Dosage 1.8 [facility] RAD ONC Given TREATMENT Plan ID Pelvis [facility] RAD ONC TREATMENT Plan Name Plan_0 [facility] RAD ONC TREATMENT Fractions 20 K[facility] RAD ONC Treated to Date TREATMENT Total Fractions 25 K[facility] RAD ONC on Plan TREATMENT Prescribed Dose 1.8 K[facility] RAD ONC per Fraction TREATMENT Prescription 4,500 K[facility] RAD ONC Dose TREATMENT Specimen Performing Organization Address City/State/ZIP Code P shahnaz Number [facility] RAD ONC TREATMENT documented in this encounter Visit Diagnoses Not on filedocumented in this encounter Additional Health Concerns Assessment Noted Time A fall risk assessment has been completed for the pat ient 05/30/2021 12:30 PM CDT documented as of this encounter
--- OUTSIDE RECORDS SUMMARY | 2021-06-17 09:54 | XMS REPORT | Encounter Summary ---
Author Author [facility] Organization [facility] Address Unknown Phone Unavailable Care Team Providers Care Track Fitter Name Role Phone Steph Sánchez MD PCP Encounter Details Care Team Description Date Type Department 06/06/2021 Travel Social History Date Tobacco Use Types Packs/Day [...] filedocumented as of this encounter Visit Diagnoses Not on filedocumented in this encounter Additional Health Concerns Assessment Noted Time A fall risk assessment has been completed for the pat ient 06/06/2021 12:09 PM CDT documented as of this encounter
--- OUTSIDE RECORDS SUMMARY | 2021-06-17 09:54 | XMS REPORT | Encounter Summary ---
Author Author [facility] Organization [facility] Address Unknown Phone Unavailable Care Team Providers Care Spooling Machine Operator Name Role Phone Steph Sánchez MD PCP Encounter Details Care Team Description Date Type Department [facility] Treatment Data 05/31/2021 Orders Only Radiation Oncology: [facility] [address] [facility] [place] [phone] Social History Date Tobacco Use Types Packs/Day [...] Associated Diag nosis RAD ONC TREATMENT Routine 05/31/2021 INFORMATION 11:54 AM CDT documented in this encounter Results * RAD ONC TREATMENT INFORMATION (05/31/2021 11:54 AM CDT) Course ID C1-Pelvis [facility] RAD ONC TREATMENT First Treatment 05-09-2021 11:43AM [facility] RAD ONC Date TREATMENT Last Treatment 05-31-2021 11:54AM [facility] RAD ONC Date TREATMENT Treatment 22 K[facility] RAD ONC Elapsed Days TREATMENT Reference Point Pelvis [facility] RAD ONC ID TREATMENT Dosage Given To 30.6 [facility] RAD ONC Date TREATMENT Session Dosage 1.8 [facility] RAD ONC Given TREATMENT Plan ID Pelvis [facility] RAD ONC TREATMENT Plan Name Plan_0 [facility] RAD ONC TREATMENT Fractions 17 [facility] RAD ONC Treated to Date TREATMENT [...]
--- OUTSIDE RECORDS SUMMARY | 2021-06-17 09:54 | XMS REPORT | Encounter Summary ---
Author Author [facility] Organization [facility] Address Unknown Phone Unavailable Care Team Providers Care Tractor Crane Operator Name Role Phone Steph Sánchez MD PCP Reason for Referral * Radiation Oncology (Routine) Referred By Contact Referred To Contact Status Reason Specialty Diagnoses / Procedures Luis A Steiner MD [address] [facility] [place] [address] Cc Radiation Therapy [facility] PM Pediatrics [facility] [place] [address] Authorized Specialty Services Radiation Diagnoses Required Therapy Endometrial cancer (HCC) Answer Question No Laterality Laterality Vagina Specific Area Treatment Site 3 Number of Treatments Brachytherapy Treatment Modality High Dose Brachytherapy TX Technique No Special Treatment Required Supine Immobilization N/A Has a test been ordered? No Concurrent Chemo N/A - Vaginal cylinder insertion Special Instructions? Comments RADIATION SIMULATION ORDER DATE: 06/06/2021 Identification: Monse Encinas is a 65 y.o. year old female with Endometrial cancer (HCC) (primary encounter diagnosis) Plan: CBC AND DIFF, COMPREHENSIVE METABOLIC PANEL . Lab Results Component Value Date/Time BUN 11 04/18/2021 08:09 AM CR 0.87 04/18/2021 08:09 AM ALBUMIN 3.8 04/18/2021 08:09 AM CA 8.7 04/18/2021 08:09 AM CO2 25 04/18/2021 08:09 AM CL 106 04/18/2021 08:09 AM GLU 102 (H) 04/18/2021 08:09 AM K 3.8 04/18/2021 08:09 AM NA 140 04/18/2021 08:09 AM TOTBILI 0.2 (L) 04/18/2021 08:09 AM TOTPROT 7.1 04/18/2021 08:09 AM ALT 16 04/18/2021 08:09 AM ALKPHOS 95 04/18/2021 08:09 AM AST 15 04/18/2021 08:09 AM Current Outpatient Medications: acetaminophen (TYLENOL EXTRA STRENGTH) 500 mg tablet, Take 500 mg by mouth every 6 hours as needed for Pain., Disp: , Rfl: buPROPion HCL SR (WELLBUTRIN SR) 150 mg tablet, Take one tablet by mouth twice daily. Take once a day for 1 week. Then increase to twice daily., Disp: 60 tablet, Rfl: 2 Cholecalciferol (Vitamin D3) 50 mcg (2,000 unit) cap, Take 2,000 Units by mouth daily. 2000 IU, Disp: , Rfl: Cranberry 400 mg cap, Take by mouth., Disp: , Rfl: dexAMETHasone (DECADRON) 4 mg tablet, Take two tablets by mouth daily. On Days 2-4 of each cycle. (Patient taking differently: Take 2 mg by mouth daily. On Days 2-4 of each cycle. Taking 1/2 tablet for 3 days after treatment.), Disp: 36 tablet, Rfl: 0 diphenhydrAMINE (BENADRYL) 25 mg capsule, Take 25 mg by mouth nightly as needed (allergies, sleep)., Disp: , Rfl: esomeprazole DR (NEXIUM) 20 mg capsule, Take 20 mg by mouth daily., Disp: , Rfl: levothyroxine (SYNTHROID) 150 mcg tablet, Take 150 mcg by mouth daily 30 minutes before breakfast. Uses brand name Levothyroxine (not a generic), Disp: , Rfl: lidocaine/prilocaine (EMLA) 2.5/2.5 % topical cream, Apply topically to affected area as Needed., Disp: 30 g, Rfl: 1 loperamide HCl (IMODIUM PO), Take 2 mg by mouth as Needed., Disp: , Rfl: ondansetron (ZOFRAN) 8 mg tablet, Take one tablet by mouth every 8 hours as needed (nausea and vomiting)., Disp: 30 tablet, Rfl: 3 polyethylene glycol 3350 (MIRALAX) 17 g packet, Take one packet by mouth daily. (Patient taking differently: Take 17 g by mouth as Needed.), Disp: 12 each, Rfl: 3 prochlorperazine maleate (COMPAZINE) 10 mg tablet, Take one tablet by mouth every 6 hours as needed for Nausea or Vomiting. First choice for nausea for the first 3 days after chemotherapy, Disp: 30 tablet, Rfl: 3 senna (SENNA-GEN) 8.6 mg tablet, Take one tablet to two tablets by mouth twice daily., Disp: 180 tablet, Rfl: 0 No current facility-administered medications for this visit. -- Dermabond -- HIVES and RASH -- Adhesive -- RASH -- Redness, swelling, itching from surgical glue Redness, swelling, itching from surgical glue -- Penicillins -- HIVES -- 02/11/21: patient reports when she was given penicillin in her early 20s she developed hives and swelling of her tongue - went back to the doctor who administered some sort of injection that helped resolve the reaction. Has not had any penicillins or cephalosporins since then -- Clindamycin -- UNKNOWN -- Developed c.diff infection after receiving clindamycin in 2019 Special Instructions: Electronically signed by Luis A Steiner MD at Reason for Visit * Reason Comments On-treatment Encounter Details Care Team Description Date Type Department Luis A Steiner MD [address] [facility] Onc [place], [place] [id number] Endometrial cancer (HCC) (Primary Dx) 06/06/2021 Office [facility] [place] [address] [place] [address]. [place] [phone] Social History Date Tobacco Use Types Packs/Day Years Used Never Smoker Smokeless Tobacco: Never Used Sex Assigned at Date Recorded Female 02/08/2021 1:20 PM CDT Date Recorded COVID-19 Exposure Response 06/06/2021 11:17 AM CDT In the last month, have you been in contact with No / Unsure someone who was confirmed or suspected to have Coronavirus / COVID-19? documented as of this encounter Last Filed Vital Signs Reading Time Taken Comments Vital Sign 130/86 06/06/2021 12:08 PM CDT Blood Pressure 79 06/06/2021 12:08 PM CDT Pulse 36.5 C (97.7 F) 06/06/2021 12:08 PM CDT Temperature 16 06/06/2021 12:08 PM CDT Respiratory Rate 100% 06/06/2021 12:08 PM CDT Oxygen Saturation - - Inhaled Oxygen Concentration 79.8 kg (176 lb) 06/06/2021 12:08 PM CDT Weight 157.5 cm (5' 2") 06/06/2021 12:08 PM CDT Height 32.19 06/06/2021 12:08 PM CDT Body Mass Index documented in this encounter Functional Status Date of Assessment [...] impairment: No documented as of this encounter Progress Notes * Luis A Steiner MD - 06/06/2021 11:30 AM CDT Weekly Management Progress Note Date: 06/06/2021 Monse Encinas is a 65 y.o. female. Vitals: Vitals: 06/06/21 1208 BP: 130/86 Pulse: 79 Resp: 16 Temp: 36.5 C (97.7 F) SpO2: 100% Weight: 79.8 kg (176 lb) Height: 157.5 cm (62") Subjective The encounter diagnosis was Endometrial cancer (HCC). Staging: Cancer Staging No matching staging information was found for the patient. Body mass index is 32.19 kg/m. Fatigue Scale: 3 Treatment Data Summary: Treatment Data 05/29/2021 05/30/2021 05/31/2021 06/03/2021 06/04/2021 06/05/2021 06/06/2021 Course ID C1-Pelvis C1-Pelvis C1-Pelvis C1-Pelvis C1-Pelvis C1-Pelvis C1-Pelvis Plan ID Pelvis Pelvis Pelvis Pelvis Pelvis Pelvis Pelvis Prescription Dose (cGy) 4,500 4,500 4,500 4,500 4,500 4,500 4,500 Prescribed Dose per Fraction (Gy) 1.8 1.8 1.8 1.8 1.8 1.8 1.8 Fractions Treated to Date 15 16 17 18 19 20 21 Total Fractions on Plan 25 25 25 25 25 25 25 Treatment Elapsed Days 20 21 22 25 26 27 28 Reference Point ID Pelvis Pelvis Pelvis Pelvis Pelvis Pelvis Pelvis Dosage Given to Date (Gy) 27 28.8 30.6 32.4 34.2 36 37.8 Subjective: Fatigue has been biggest issue over the past week. Bowel and abdom inal symptoms are well controlled with imodium and tums. Objective: Pleasant woman sitting in clinic exam room, in no acute distress. Patient is al ert and oriented with normal mood and affect. Assessment/Plan: Continue radiation therapy as scheduled. We will schedule va ginal cylinder boost at completion of EBRT. Luis A Steiner MD Radiation Oncology documented in this encounter Plan of Treatment Order Schedule Name Type Priority Associated Diag noses Expected: 06/06/2021 (Approximate), Expi res: 06/06/2022 CBC AND DIFF Lab Routine Endometrial can cer (HCC) Expected: 06/06/2021 (Approximate), Expi res: 06/06/2022 COMPREHENSIVE METABOLIC Lab Routine Endome trial cancer (HCC) PANEL Order Schedule Name Type Priority Associated Diag noses Ordered: 06/06/2021 RADIATION THERAPY Outpatient Routine Endometrial cancer (HCC) SIMULATION Referral documented as of this encounter Procedures Comments Procedure Name Priority Date/Time Associated Diag nosis HC CBC W/ AUTOMATED DIFF 06/06/2021 Endometrial cancer (HCC) 12:40 PM CDT HC COMPREHENSIVE 06/06/2021 Endometrial cancer (HCC) METABOLIC PANEL 12:40 PM CDT documented in this encounter Results * CBC AND DIFF (06/06/2021 12:40 PM CDT) White Blood 4.1 (L) 4.5 - 11.0 K/UL [facility] Cells RBC 3.80 (L) 4.0 - 5.0 M/UL [facility] Hemoglobin 11.9 (L) 12.0 - 15.0 GM/DL [facility] Hematocrit 34.9 (L) 36 - 45 % [facility] MCV 91.8 80 - 100 FL [facility] MCH 31.2 26 - 34 PG [facility] MCHC 34.0 32.0 - 36.0 G/DL [facility] RDW 19.2 (H) 11 - 15 % [facility] Platelet Count 187 150 - 400 K/UL [facility] MPV 7.5 7 - 11 FL [facility] Neutrophils 76 41 - 77 % [facility] Lymphocytes 8 (L) 24 - 44 % [facility] Monocytes 7 4 - 12 % [facility] Eosinophils 8 (H) 0 - 5 % [facility] Basophils 1 0 - 2 % [facility] Absolute 3.16 1.8 - 7.0 K/UL [facility] Neutrophil Count Absolute Lymph 0.31 (L) 1.0 - 4.8 K/UL [facility] Count Absolute 0.29 0 - 0.80 K/UL [facility] Monocyte Count Absolute 0.34 0 - 0.45 K/UL [facility] Eosinophil Count Absolute 0.03 0 - 0.20 K/UL [facility] Basophil Count Specimen Performing Organization Address City/State/ZIP Code P shahnaz Number [facility] [address] [place] [id number] * COMPREHENSIVE METABOLIC PANEL (06/06/2021 12:40 PM CDT) Sodium 141 137 - 147 MMOL/L [facility] Potassium 3.9 3.5 - 5.1 MMOL/L [facility] Chloride 104 98 - 110 MMOL/L [facility] Glucose 89 70 - 100 MG/DL [facility] Blood Urea 7 7 - 25 MG/DL [facility] Nitrogen Creatinine 0.79 0.4 - 1.00 MG/DL [facility] Calcium 9.2 8.5 - 10.6 MG/DL [facility] Total Protein 7.4 6.0 - 8.0 G/DL [facility] Total Bilirubin 0.3 0.3 - 1.2 MG/DL [facility] Albumin 4.2 3.5 - 5.0 G/DL [facility] Alk Phosphatase 67 25 - 110 U/L [facility] AST (SGOT) 14 7 - 40 U/L [facility] CO2 27 21 - 30 MMOL/L [facility] ALT (SGPT) 14 7 - 56 U/L [facility] Anion Gap 10 3 - 12 [facility] eGFR Non >60 >60 mL/min [facility] Comment: [place] The eGFR is not validated f or use in drug dosing adjustments. Continue to use estimated creatinine clearance per dosing reference text. Please contact the Clinical Pharmacist for questions. eGFR >60 >60 mL/min [facility] [place] Comment: The eGFR is not validated for use in drug dosing adjustments. Continue to use estimated creatinine clearance per dosing reference text. Please contact the Clinical Pharmacist for questions. Specimen Performing Organization Address City/State/ZIP Code P shahnaz Number [facility] [address] [place] [address] documented in this encounter Visit Diagnoses Diagnosis Endometrial cancer (HCC) - Primary Malignant neoplasm of corpus uteri, exc ept isthmus documented in this encounter Additional Health Concerns Assessment Noted Time A fall risk assessment has been completed for the pat ient 06/06/2021 12:09 PM CDT documented as of this encounter
--- OUTSIDE RECORDS SUMMARY | 2021-06-17 09:54 | XMS REPORT | Encounter Summary ---
Author Author [facility] Organization [facility] Address Unknown Phone Unavailable Care Team Providers Care [place] Name Role Phone Steph Sánchez MD PCP Encounter Details Care Team Description Date Type Department Interface, [facility] Treatment Data 06/04/2021 Orders Only Radiation Oncology: [facility] [address] [facility] [place] [phone] Social History Date Tobacco Use Types Packs/Day [...] Associated Diag nosis RAD ONC TREATMENT Routine 06/04/2021 INFORMATION 11:32 AM CDT documented in this encounter Results * RAD ONC TREATMENT INFORMATION (06/04/2021 11:32 AM CDT) Course ID C1-Pelvis [facility] RAD ONC TREATMENT First Treatment 05-09-2021 11:43AM [facility] RAD [facility] Date TREATMENT Last Treatment 06-04-2021 11:32AM [facility] RAD [facility] Date TREATMENT Treatment 26 KU RAD ONC Elapsed Days TREATMENT Reference Point Pelvis [facility] RAD ONC ID TREATMENT Dosage Given To 34.2 K[facility] RAD ONC Date TREATMENT Session Dosage 1.8 [facility] RAD ONC Given TREATMENT Plan ID Pelvis [facility] RAD ONC TREATMENT Plan Name Plan_0 [facility] RAD ONC TREATMENT Fractions 19 [facility] RAD ONC Treated to Date TREATMENT [...]
--- OUTSIDE RECORDS SUMMARY | 2021-06-17 09:54 | XMS REPORT | Encounter Summary ---
Author Author [facility] Organization [facility] Address Unknown Phone Unavailable Care Team Providers Care Rattling Machine Tender Name Role Phone Steph Sánchez MD PCP Encounter Details Care Team Description Date Type Department 06/13/2021 Travel Social History Date Tobacco Use Types Packs/Day Years Used Never Smoker Smokeless Tobacco: Never Used Sex Assigned at Date Recorded Female 02/08/2021 1:20 PM CDT Date Recorded COVID-19 Exposure Response 06/13/2021 8:47 AM CDT In the last month, have [...] has been completed for the pat ient 06/13/2021 9:54 AM CDT documented as of this encounter
--- OUTSIDE RECORDS SUMMARY | 2021-06-17 09:54 | XMS REPORT | Clinical Summary ---
Author Author [facility] Organization [facility] Address Unknown Phone Unavailable Care Team Providers Care Tie Layer Name Role Phone Steph Sánchez MD PCP Source Comments Some departments are not documenting in the electronic medical record. If you d o not see the information that you expected, contact Release of Information in [facility] Information Management department at [phone] for further assistan ce in locating additional records.[facility] Allergies Comments Active Allergy Reactions Severity Noted Date Redness, swelling, itching from surgical glue Redness, swelling, itching from surgical glue Adhesive RASH Medium 02/04/2021 Developed c.diff infection after receiving clindamycin in 2019 Clindamycin UNKNOWN Low 02/07/2021 Dermabond HIVES, RASH High 02/28/2021 02/11/21: patient reports when she was given penicillin in her early 20s she developed hives and swelling of her tongue - went back to the doctor who administered some sort of injection that helped resolve the reaction. Has not had any penicillins or cephalosporins since then Penicillins HIVES Medium 02/07/2021 Medications End Date Status Medication Sig Dispensed Refills Start Date Active Cholecalciferol (Vitamin Take 2,000 0 12/26 D3) 50 mcg (2,000 unit) Units by 1 cap mouth daily. [address] (NEXIUM) Take 20 mg by 0 12/27 20 mg capsule mouth daily. 0 Active levothyroxine (SYNTHROID) Take 150 mcg 0 150 mcg tablet by mouth daily 30 minutes before breakfast. Uses brand name Levothyroxine (not a generic) Active ondansetron (ZOFRAN) 8 mg Take one 30 tablet 3 tabletIndications: tablet by 1 Endometrial cancer (HCC) mouth every 8 hours as needed (nausea and vomiting). Active dexAMETHasone (DECADRON) Take two 36 tablet 0 0 4 mg tabletIndications: tablets by 1 Endometrial cancer (HCC) mouth daily. On Days 2-4 of each cycle. Additional Information Patient taking differently: 2 mg Oral DAILY, On Days 2-4 of each cycle.Taking 1/2 tablet for 3 days after treatment., Reported on 05/15/2021 Active prochlorperazine maleate Take one 30 tablet 3 0 (COMPAZINE) 10 mg tablet by 1 tabletIndications: mouth every 6 Endometrial cancer (HCC) hours as needed for Nausea or Vomiting. First choice for nausea for the first 3 days after chemotherapy Active lidocaine/prilocaine Apply 30 g 1 02/26 (EMLA) 2.5/2.5 % topical topically to 1 cream affected area as Needed. Active acetaminophen (TYLENOL Take 500 mg 0 EXTRA STRENGTH) 500 mg by mouth tablet every 6 hours as needed for Pain. Active diphenhydrAMINE Take 25 mg by 0 (BENADRYL) 25 mg capsule mouth nightly as needed (allergies, sleep). Active Cranberry 400 mg cap Take by 0 mouth. Active senna (SENNA-GEN) 8.6 mg Take one 180 tablet 0 0 tablet tablet to two 1 tablets by mouth twice daily. Active polyethylene glycol 3350 Take one 12 each 3 0 (MIRALAX) 17 g packet packet by 1 mouth daily. Additional Information Patient taking differently: 17 g Oral NEEDED, Reported on 05/15/2021 Active loperamide HCl (IMODIUM Take 2 mg by 0 PO) mouth as Needed. Active buPROPion HCL SR Take one 60 tablet 2 (WELLBUTRIN SR) 150 mg tablet by 1 tablet mouth twice daily. Take once a day for 1 week. Then increase to twice daily. Active diphenoxylate-atropine Take one 40 tablet 1 (LOMOTIL) 2.5-0.025 mg tablet by 1 tabletIndications: mouth four diarrhea times daily as needed for Diarrhea. 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 Encounters Care Team Description Date Type Specialty Luis A Steiner MD Arrived 06/13/2021 Nurse Only Radiation Therapy Theo Mclaughlin MD Endometrial cancer (HCC) (Primary Dx); Thyroid disease; Post-radiation retinopathy, sequela; Neuropathy; Endometrial adenocarcinoma (HCC); Drug-induced constipation; 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); Adjustment reaction with anxiety and depression 06/13/2021 Office Visit Oncology 06/13/2021 Travel Interface, Aria Treatment Data 06/12/2021 Orders Only Radiation Therapy Luis A Steiner MD 06/11/2021 Orders Only Radiation Therapy Luis A Steiner MD 06/11/2021 Orders Only Radiation Therapy Interface, Aria Treatment Data 06/11/2021 Orders Only Radiation Therapy Interface, Aria Treatment Data 06/10/2021 Orders Only Radiation Therapy Interface, Aria Treatment Data 06/07/2021 Orders Only Radiation Therapy Luis A Steiner MD Endometrial cancer (HCC) (Primary Dx) 06/06/2021 Office Visit Radiation Therapy CrowleySharon Endometrial cancer (HCC) 06/06/2021 Orders Only Radiation Therapy Interface, Aria Treatment Data 06/06/2021 Orders Only Radiation Therapy 06/06/2021 Travel Interface, Aria Treatment Data 06/05/2021 Orders Only Radiation Therapy Interface, Aria Treatment Data 06/04/2021 Orders Only Radiation Therapy Interface, Aria Treatment Data 06/03/2021 Orders Only Radiation Therapy Interface, Aria Treatment Data 05/31/2021 Orders Only Radiation Therapy Luis A Steiner MD Malignant neoplasm of endometrium (HCC) 05/30/2021 Hospital Lab Encounter Luis A Steiner MD Endometrial cancer (HCC) (Primary Dx) 05/30/2021 Office Visit Radiation Therapy Interface, Aria Treatment Data 05/30/2021 Orders Only Radiation Therapy 05/30/2021 Travel Interface, Aria Treatment Data 05/29/2021 Orders Only Radiation Therapy Interface, Aria Treatment Data 05/28/2021 Orders Only Radiation Therapy Interface, Aria Treatment Data 05/27/2021 Orders Only Radiation Therapy Interface, Aria Treatment Data 05/24/2021 Orders Only Radiation Therapy Luis A Steiner MD Endometrial cancer (HCC) (Primary Dx) 05/23/2021 Office Visit Radiation Therapy Interface, Aria Treatment Data 05/23/2021 Orders Only Radiation Therapy 05/23/2021 Travel Interface, Aria Treatment Data 05/22/2021 Orders Only Radiation Therapy Interface, Aria Treatment Data 05/21/2021 Orders Only Radiation Therapy Interface, Aria Treatment Data 05/20/2021 Orders Only Radiation Therapy Interface, Aria Treatment Data 05/17/2021 Orders Only Radiation Therapy Candy Templeton MD Palliative Care 05/17/2021 Telephone Palliative Care Luis A Steiner MD Endometrial cancer (HCC) (Primary Dx) 05/16/2021 Office Visit Radiation Therapy Interface, Aria Treatment Data 05/16/2021 Orders Only Radiation Therapy 05/16/2021 Travel Candy Templeton MD Drug-induced constipation (Primary Dx); Endometrial adenocarcinoma (HCC); Neuropathy; Adjustment reaction with anxiety and depression 05/15/2021 Office Visit Palliative Care Telehealth Interface, Aria Treatment Data 05/15/2021 Orders Only Radiation Therapy Tyson Steiner MD Hoover, Andrew C, MD 05/14/2021 Hospital Lab Encounter Interface, Aria Treatment Data 05/14/2021 Orders Only Radiation Therapy 05/14/2021 Travel Jasmine Eng BSN Endometrial adenocarcinoma (HCC) (Primar y Dx) 05/13/2021 Orders Only Radiation Therapy Luis A Steiner MD Endometrial adenocarcinoma (HCC) (Primar y Dx) 05/09/2021 Office Visit Radiation Therapy Interface, Aria Treatment Data 05/09/2021 Orders Only Radiation Therapy 05/09/2021 Travel Candy Templeton MD Palliative Care 05/09/2021 Telephone Palliative Care Luis A Steiner MD 04/30/2021 Hospital Radiology Encounter Luis A Steiner MD Endometrial cancer (HCC) (Primary Dx) 04/30/2021 Office Visit Radiation Therapy Fabiana Robertson LMSW 04/30/2021 Documentation Radiation Therapy 04/30/2021 Travel Luis A Steiner MD Endometrial adenocarcinoma (HCC) (Primar y Dx) 04/23/2021 Orders Only Radiation Therapy Theo Mclaughlin MD 04/18/2021 Hospital Oncology Encounter Theo Mclaughlin MD Neuropathy (Primary Dx); Drug-induced constipation; Thyroid disease; Post-radiation retinopathy, sequela; Endometrial adenocarcinoma (HCC); 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); Endometrial cancer (HCC) 04/18/2021 Office Visit Oncology Theo Mclaughlin MD 04/18/2021 Hospital Lab Encounter 04/18/2021 Travel Moira Quinn PHARMTammie 04/08/2021 Orders Only Oncology Opat, Elizabeth 04/01/2021 Documentation Oncology Theo Mclaughlin MD 03/28/2021 Hospital Oncology Encounter Theo Mclaughlin MD 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) (Primary Dx); Endometrial adenocarcinoma (HCC); Endometrial cancer (HCC); Post-radiation retinopathy, sequela; Thyroid disease 03/28/2021 Office Visit Oncology Thoe Mclaughlin MD 03/28/2021 Hospital Lab Encounter Steff Shanks 03/28/2021 Documentation Oncology Opat, Elizabeth 03/28/2021 Documentation Oncology 03/28/2021 Travel Candy Templeton MD Endometrial cancer (HCC) (Primary Dx); Drug-induced constipation; Neuropathy 03/27/2021 Office Visit Palliative Care 03/27/2021 Travel Candy Templeton MD Palliative Care 03/26/2021 Telephone Palliative Care Moira Quinn, PHARMD 03/22/2021 Orders Only Oncology Lacey Garcia RN Endometrial cancer (HCC) (Primary Dx); Endometrial adenocarcinoma (HCC) 03/21/2021 Orders Only Oncology Theo Mclaughlin MD 03/21/2021 Orders Only Oncology from Last 3 Months Immunizations Name Administration Dates Next Due COVID-19 (PFIZER), mRNA 04/15/2021 vacc, 30 mcg/0.3 mL (PF) Surgical History Surgery Date Site/Laterality Comments CRANIOTOMY LYMPH NODE BIOPSY [place] LAPAROSCOPY TOTAL HYSTERECTOMY UTERUS >250 GM Medical History Medical History Date Comments History of thyroid disease Brain tumor (benign) (HCC) Radiation retinopathy Cystoid macular edema Family History Medical History Relation Name Comments Cancer-Breast Maternal Aunt Migraines Mother Cancer-Ovarian Paternal Aunt Relation Name Status Comments Maternal Aunt Alive Mother Alive Paternal Aunt Social History Date Tobacco Use Types Packs/Day Years Used Never Smoker Smokeless Tobacco: Never Used Sex Assigned at Date Recorded Female 02/08/2021 1:20 PM CDT Date Recorded COVID-19 Exposure Response 06/13/2021 8:47 AM CDT In the last month, have you been in contact with No / Unsure someone who was confirmed or suspected to have Coronavirus / COVID-19? Last Filed Vital Signs Reading Time Taken Comments Vital Sign 125/76 06/13/2021 9:54 AM CDT Blood Pressure 88 06/13/2021 9:54 AM CDT Pulse 36.4 C (97.6 F) 06/13/2021 9:54 AM CDT Temperature 16 06/13/2021 8:52 AM CDT Respiratory Rate 100% 06/13/2021 9:54 AM CDT Oxygen Saturation - - Inhaled Oxygen Concentration 79.2 kg (174 lb 9.6 oz) 06/13/2021 9:54 AM CDT Weight 157.5 cm (5' 2") 06/13/2021 9:54 AM CDT Height 31.93 06/13/2021 9:54 AM CDT Body Mass Index Plan of Treatment Health Maintenance Due Date Last Done Comments MEDICARE ANNUAL WELLNESS 1955 VISIT HIV SCREENING 11/24/1970 DTAP/TDAP VACCINES (1 - 11/24/1973 Tdap) HEPATITIS C SCREENING 11/24/1973 PHYSICAL (COMPREHENSIVE) 11/24/1973 EXAM BREAST CANCER SCREENING 1995 COLORECTAL CANCER 11/24/2005 SCREENING SHINGLES RECOMBINANT 11/24/2005 VACCINE (1 of 2) OSTEOPOROSIS 11/24/2020 SCREENING/MONITORING PNEUMONIA (PPSV23) 11/24/2020 VACCINE (1 of 1 - PPSV23) INFLUENZA VACCINE 03/17/2021 COVID-19 VACCINE (2 - 05/06/2021 04/15/2021 [employer] risk 3-dose series) Implants Device Identifier Shelf Expiration Date Model / Serial / L ot Implanted Type Area Manufactur er [id number] 01/14/2022 [id number] / NA / [id number] Port Implantable Infusion Powerport Right: Chest B YURIDIA Clearvue Isp - Sna Wall ACCESS Implanted: Qty: 1 on 02/28/2021 by Aidan Chapa MD at [employer] Procedures Comments Procedure Name Priority Date/Time Associated Diag nosis RAD ONC TREATMENT Routine 06/12/2021 INFORMATION 11:25 AM CDT RAD ONC TREATMENT Routine 06/11/2021 INFORMATION 11:32 AM CDT RAD ONC TREATMENT Routine 06/10/2021 INFORMATION 11:26 AM CDT RAD ONC TREATMENT Routine 06/07/2021 INFORMATION 11:49 AM CDT HC CBC W/ AUTOMATED DIFF 06/06/2021 Endometrial cancer (HCC) 12:40 PM CDT HC COMPREHENSIVE 06/06/2021 Endometrial cancer (HCC) METABOLIC PANEL 12:40 PM CDT RAD ONC TREATMENT Routine 06/06/2021 INFORMATION 11:52 AM CDT RAD ONC TREATMENT Routine 06/05/2021 INFORMATION 11:36 AM CDT RAD ONC TREATMENT Routine 06/04/2021 INFORMATION 11:32 AM CDT RAD ONC TREATMENT Routine 06/03/2021 INFORMATION 11:25 AM CDT RAD ONC TREATMENT Routine 05/31/2021 INFORMATION 11:54 AM CDT URINALYSIS MICROSCOPIC 05/30/2021 REFLEX TO CULTURE 12:50 PM CDT HC URINALYSIS UAR 05/30/2021 12:50 PM CDT UA REFLEX LABEL 05/30/2021 Malignant neoplasm of 12:50 PM CDT endometrium (HCC) RAD ONC TREATMENT Routine 05/30/2021 INFORMATION 12:23 PM CDT RAD ONC TREATMENT Routine 05/29/2021 INFORMATION 11:29 AM CDT RAD ONC TREATMENT Routine 05/28/2021 INFORMATION 11:52 AM CDT RAD ONC TREATMENT Routine 05/27/2021 INFORMATION 11:37 AM CDT RAD ONC TREATMENT Routine 05/24/2021 INFORMATION 12:02 PM CDT RAD ONC TREATMENT Routine 05/23/2021 INFORMATION 11:48 AM CDT RAD ONC TREATMENT Routine 05/22/2021 INFORMATION 11:41 AM CDT RAD ONC TREATMENT Routine 05/21/2021 INFORMATION 11:32 AM CDT RAD ONC TREATMENT Routine 05/20/2021 INFORMATION 11:24 AM CDT RAD ONC TREATMENT Routine 05/17/2021 INFORMATION 11:19 AM CDT RAD ONC TREATMENT Routine 05/16/2021 INFORMATION 11:27 AM CDT RAD ONC TREATMENT Routine 05/15/2021 INFORMATION 11:38 AM CDT RAD ONC TREATMENT Routine 05/14/2021 INFORMATION 11:42 AM CDT RAD ONC TREATMENT Routine 05/13/2021 INFORMATION 11:23 AM CDT RAD ONC TREATMENT Routine 05/10/2021 INFORMATION 11:32 AM CDT RAD ONC TREATMENT Routine 05/09/2021 INFORMATION 11:[address] CHEST W CONTRAST Routine 04/30/2021 Endometria l cancer (HCC) 1:[address] ABD/PELV W CONTRAST Routine 04/30/2021 Endomet rial cancer (HCC) 1:00 PM CDT HC COMPREHENSIVE Routine 04/18/2021 Endometrial c ancer (HCC) METABOLIC PANEL 8:09 AM CDT HC CBC W/ AUTOMATED DIFF Routine 04/18/2021 Endom etrial cancer (HCC) 8:09 AM CDT HC COMPREHENSIVE Routine 03/28/2021 Endometrial c ancer (HCC) METABOLIC PANEL 7:08 AM CDT HC CBC W/ AUTOMATED DIFF Routine 03/28/2021 Endom etrial cancer (HCC) 7:08 AM CDT from Last 3 Months Results * RAD ONC TREATMENT INFORMATION (06/12/2021 11:25 AM CDT) Course ID C1-Pelvis KU RAD ONC TREATMENT First Treatment 05-09-2021 11:43AM KU RAD ONC Date TREATMENT Last Treatment 06-12-2021 11:25AM KU RAD ONC Date TREATMENT Treatment 34 KU RAD ONC Elapsed Days TREATMENT Reference Point Pelvis KU RAD ONC ID TREATMENT Dosage Given To 45 KU RAD ONC Date TREATMENT Session Dosage 1.8 KU RAD ONC Given TREATMENT Plan ID Pelvis KU RAD ONC TREATMENT Plan Name Plan_0 KU RAD ONC TREATMENT Fractions 25 KU RAD ONC Treated to Date TREATMENT Total Fractions 25 KU RAD ONC on Plan TREATMENT Prescribed Dose 1.8 KU RAD ONC per Fraction TREATMENT Prescription 4,500 KU RAD ONC Dose TREATMENT Specimen Performing Organization Address City/State/ZIP Code P shahnaz Number KU RAD ONC TREATMENT * RAD ONC TREATMENT INFORMATION (06/11/2021 11:32 AM CDT) Course ID C1-Pelvis KU RAD ONC TREATMENT First Treatment 05-09-2021 11:43AM KU RAD ONC Date TREATMENT Last Treatment 06-11-2021 11:32AM KU RAD ONC Date TREATMENT Treatment 33 KU RAD ONC Elapsed Days TREATMENT Reference Point Pelvis KU RAD ONC ID TREATMENT Dosage Given To 43.2 KU RAD ONC Date TREATMENT Session Dosage 1.8 KU RAD ONC Given TREATMENT Plan ID Pelvis KU RAD ONC TREATMENT Plan Name Plan_0 KU RAD ONC TREATMENT Fractions 24 KU RAD ONC Treated to Date TREATMENT Total Fractions 25 KU RAD ONC on Plan TREATMENT Prescribed Dose 1.8 KU RAD ONC per Fraction TREATMENT Prescription 4,500 KU RAD ONC Dose TREATMENT Specimen Performing Organization Address City/State/ZIP Code P shahnaz Number KU RAD ONC TREATMENT * RAD ONC TREATMENT INFORMATION (06/10/2021 11:26 AM CDT) Course ID C1-Pelvis KU RAD ONC TREATMENT First Treatment 05-09-2021 11:43AM KU RAD ONC Date TREATMENT Last Treatment 06-10-2021 11:26AM KU RAD ONC Date TREATMENT Treatment 32 KU RAD ONC Elapsed Days TREATMENT Reference Point Pelvis KU RAD ONC ID TREATMENT Dosage Given To 41.4 KU RAD ONC Date TREATMENT Session Dosage 1.8 KU RAD ONC Given TREATMENT Plan ID Pelvis KU RAD ONC TREATMENT Plan Name Plan_0 KU RAD ONC TREATMENT Fractions 23 KU RAD ONC Treated to Date TREATMENT Total Fractions 25 KU RAD ONC on Plan TREATMENT Prescribed Dose 1.8 KU RAD ONC per Fraction TREATMENT Prescription 4,500 KU RAD ONC Dose TREATMENT Specimen Performing Organization Address City/State/ZIP Code P shahnaz Number KU RAD ONC TREATMENT * RAD ONC TREATMENT INFORMATION (06/07/2021 11:49 AM CDT) Course ID C1-Pelvis KU RAD ONC TREATMENT First Treatment 05-09-2021 11:43AM KU RAD ONC Date TREATMENT Last Treatment 06-07-2021 11:49AM KU RAD ONC Date TREATMENT Treatment 29 KU RAD ONC Elapsed Days TREATMENT Reference Point Pelvis KU RAD ONC ID TREATMENT Dosage Given To 39.6 KU RAD ONC Date TREATMENT Session Dosage 1.8 KU RAD ONC Given TREATMENT Plan ID Pelvis KU RAD ONC TREATMENT Plan Name Plan_0 KU RAD ONC TREATMENT Fractions 22 KU RAD ONC Treated to Date TREATMENT Total Fractions 25 KU RAD ONC on Plan TREATMENT Prescribed Dose 1.8 KU RAD ONC per Fraction TREATMENT Prescription 4,500 KU RAD ONC Dose TREATMENT Specimen Performing Organization Address City/[facility]/ZIP Code P shahnaz Number KU RAD ONC TREATMENT * CBC AND DIFF (06/06/2021 12:40 PM CDT) Only the most recent of 3 results within the time period is included. White Blood 4.1 (L) 4.5 - 11.0 [...] P shahnaz Number [facility] [address] [place] [address] * COMPREHENSIVE METABOLIC PANEL (06/06/2021 12:40 PM CDT) Only the most recent of 3 results within the time period is included. Sodium 141 137 - 147 MMOL/L KU [...] >60 >60 mL/min [facility] Comment: Chinese The eGFR is not validated f or use in drug dosing adjustments. Continue to use estimated creatinine clearance per dosing reference text. Please contact the Clinical Pharmacist for questions. eGFR >60 >60 mL/min [facility] Chinese Comment: The eGFR is not validated for use in drug dosing adjustments. Continue to use estimated creatinine clearance per dosing reference text. Please contact the Clinical Pharmacist for questions. Specimen Performing Organization Address City/State/ZIP Code P shahnaz Number [facility] [address] [place] [address] * RAD ONC TREATMENT INFORMATION (06/06/2021 11:52 AM CDT) Course ID C1-Pelvis KU RAD ONC TREATMENT First Treatment 05-09-2021 11:43AM KU RAD ONC Date TREATMENT Last Treatment 06-06-2021 11:52AM KU RAD ONC Date TREATMENT Treatment 28 KU RAD ONC Elapsed Days TREATMENT Reference Point Pelvis KU RAD ONC ID TREATMENT Dosage Given To 37.8 KU RAD ONC Date TREATMENT Session Dosage 1.8 KU RAD ONC Given TREATMENT Plan ID Pelvis KU RAD ONC TREATMENT Plan Name Plan_0 KU RAD ONC TREATMENT Fractions 21 KU RAD ONC Treated to Date TREATMENT Total Fractions 25 KU RAD ONC on Plan TREATMENT Prescribed Dose 1.8 KU RAD ONC per Fraction TREATMENT Prescription 4,500 KU RAD ONC Dose TREATMENT Specimen Performing Organization Address City/State/ZIP Code P shahnaz Number KU RAD ONC TREATMENT * RAD ONC TREATMENT INFORMATION (06/05/2021 11:36 [...] P shahnaz Number KU RAD ONC TREATMENT * RAD ONC TREATMENT INFORMATION (06/04/2021 11:32 [...] P shahnaz Number KU RAD ONC TREATMENT * RAD ONC TREATMENT INFORMATION (06/03/2021 11:25 AM CDT) Course ID C1-Pelvis KU RAD ONC TREATMENT First Treatment 05-09-2021 11:43AM KU RAD ONC Date TREATMENT Last Treatment 06-03-2021 11:25AM KU RAD ONC Date TREATMENT Treatment 25 KU RAD ONC Elapsed Days TREATMENT Reference Point Pelvis KU RAD ONC ID TREATMENT Dosage Given To 32.4 KU RAD ONC Date TREATMENT Session Dosage 1.8 KU RAD ONC Given TREATMENT Plan ID Pelvis KU RAD ONC TREATMENT Plan Name Plan_0 KU RAD ONC TREATMENT Fractions 18 KU RAD ONC Treated to Date TREATMENT Total Fractions 25 KU RAD ONC on Plan TREATMENT Prescribed Dose 1.8 KU RAD ONC per Fraction TREATMENT Prescription 4,500 KU RAD ONC Dose TREATMENT Specimen Performing Organization Address City/[facility]/ZIP Code P shahnaz Number KU RAD ONC TREATMENT * RAD ONC TREATMENT INFORMATION (05/31/2021 11:54 [...] P shahnaz Number KU RAD ONC TREATMENT * UA REFLEX LABEL (05/30/2021 12:50 PM CDT) UA Reflex Criteria for reflex to culture [facility] Culture are WBC>10, Positive Nitrit e, and/or >=+1 leukocytes. If quantity is not sufficient, an addendum will follow. Specimen Performing Organization Address City/State/[facility] Code P shahnaz Number [facility] [address] [place] [address] * URINALYSIS MICROSCOPIC REFLEX TO CULTURE (05/30/2021 [...] LAB Epithelial Cells Specimen Performing Organization Address [facility] P shahnaz Number [facility] [address] [place] [address] * URINALYSIS DIPSTICK REFLEX TO CULTURE (05/30/2021 12:50 PM CDT) Color,UA STRAW [facility] Turbidity,UA CLEAR CLEAR-CLEAR [facility] Specific 1.002 (L) 1.003 - 1.035 [facility] [place]-Urine pH,UA 7.0 5.0 - 8.0 [facility] MAIN [...] LAB Acid, UA Specimen Performing Organization Address [facility] P shahnaz Number [facility] [address] [place] [address] * RAD ONC TREATMENT INFORMATION (05/30/2021 12:23 PM CDT) Course ID C1-Pelvis KU RAD ONC TREATMENT First Treatment 05-09-2021 11:43AM KU RAD ONC Date TREATMENT Last Treatment 05-30-2021 12:23PM KU RAD ONC Date TREATMENT Treatment 21 KU RAD ONC Elapsed Days TREATMENT Reference Point Pelvis KU RAD ONC ID TREATMENT Dosage Given To 28.8 KU RAD ONC Date TREATMENT Session Dosage 1.8 KU RAD ONC Given TREATMENT Plan ID Pelvis KU RAD ONC TREATMENT Plan Name Plan_0 KU RAD ONC TREATMENT Fractions 16 KU RAD ONC Treated to Date TREATMENT Total Fractions 25 KU RAD ONC on Plan TREATMENT Prescribed Dose 1.8 KU RAD ONC per Fraction TREATMENT Prescription 4,500 KU RAD ONC Dose TREATMENT Specimen Performing Organization Address City/State/ZIP Code P shahnaz Number KU RAD ONC TREATMENT * RAD ONC TREATMENT INFORMATION (05/29/2021 11:29 AM CDT) Course ID C1-Pelvis KU RAD ONC TREATMENT First Treatment 05-09-2021 11:43AM KU RAD ONC Date TREATMENT Last Treatment 05-29-2021 11:29AM KU RAD ONC Date TREATMENT Treatment 20 KU RAD ONC Elapsed Days TREATMENT Reference Point Pelvis KU RAD ONC ID TREATMENT Dosage Given To 27 KU RAD ONC Date TREATMENT Session Dosage 1.8 KU RAD ONC Given TREATMENT Plan ID Pelvis KU RAD ONC TREATMENT Plan Name Plan_0 KU RAD ONC TREATMENT Fractions 15 KU RAD ONC Treated to Date TREATMENT Total Fractions 25 KU RAD ONC on Plan TREATMENT Prescribed Dose 1.8 KU RAD ONC per Fraction TREATMENT Prescription 4,500 KU RAD ONC Dose TREATMENT Specimen Performing Organization Address City/[facility] Code P shahnaz Number KU RAD ONC TREATMENT * RAD ONC TREATMENT INFORMATION (05/28/2021 11:52 AM CDT) Course ID C1-Pelvis KU RAD ONC TREATMENT First Treatment 05-09-2021 11:43AM KU RAD ONC Date TREATMENT Last Treatment 05-28-2021 11:52AM KU RAD ONC Date TREATMENT Treatment 19 KU RAD ONC Elapsed Days TREATMENT Reference Point Pelvis KU RAD ONC ID TREATMENT Dosage Given To 25.2 KU RAD ONC Date TREATMENT Session Dosage 1.8 KU RAD ONC Given TREATMENT Plan ID Pelvis KU RAD ONC TREATMENT Plan Name Plan_0 KU RAD ONC TREATMENT Fractions 14 KU RAD ONC Treated to Date TREATMENT Total Fractions 25 KU RAD ONC on Plan TREATMENT Prescribed Dose 1.8 KU RAD ONC per Fraction TREATMENT Prescription 4,500 KU RAD ONC Dose TREATMENT Specimen Performing Organization Address City/State/ZIP Code P shahnaz Number KU RAD ONC TREATMENT * RAD ONC TREATMENT INFORMATION (05/27/2021 11:37 AM CDT) Course ID C1-Pelvis KU RAD ONC TREATMENT First Treatment 05-09-2021 11:43AM KU RAD ONC Date TREATMENT Last Treatment 05-27-2021 11:37AM KU RAD ONC Date TREATMENT Treatment 18 KU RAD ONC Elapsed Days TREATMENT Reference Point Pelvis KU RAD ONC ID TREATMENT Dosage Given To 23.4 KU RAD ONC Date TREATMENT Session Dosage 1.8 KU RAD ONC Given TREATMENT Plan ID Pelvis KU RAD ONC TREATMENT Plan Name Plan_0 KU RAD ONC TREATMENT Fractions 13 KU RAD ONC Treated to Date TREATMENT Total Fractions 25 KU RAD ONC on Plan TREATMENT Prescribed Dose 1.8 KU RAD ONC per Fraction TREATMENT Prescription 4,500 [facility] ONC Dose TREATMENT Specimen Performing Organization Address City/State/ZIP Code P shahnaz Number [facility] ONC TREATMENT * RAD ONC TREATMENT INFORMATION (05/24/2021 12:02 PM CDT) Course ID C1-Pelvis [facility] ONC TREATMENT First Treatment 05-09-2021 11:43AM [facility] ONC Date TREATMENT Last Treatment 05-24-2021 12:02PM [facility] ONC Date TREATMENT Treatment 15 [facility] ONC Elapsed Days TREATMENT Reference Point Pelvis [facility] ONC ID TREATMENT Dosage Given To 21.6 [facility] ON[facility] Date TREATMENT Session Dosage 1.8 [facility] ON[facility] Given TREATMENT Plan ID Pelvis [facility] ONC TREATMENT Plan Name Plan_0 [facility]C TREATMENT Fractions 12 [facility] ONC Treated to Date TREATMENT Total Fractions 25 [facility] ONC on Plan TREATMENT Prescribed Dose 1.8 [facility] ONC per Fraction TREATMENT Prescription 4,500 [facility] ONC Dose TREATMENT Specimen Performing Organization Address City/State/ZIP Code P shahnaz Number [facility] ONC TREATMENT * RAD ONC TREATMENT INFORMATION (05/23/2021 11:48 AM CDT) Course ID C1-Pelvis [facility] ONC TREATMENT First Treatment 05-09-2021 11:43AM [facility] ONC Date TREATMENT Last Treatment 05-23-2021 11:48AM [facility] ON[facility] Date TREATMENT Treatment 14 [facility] ONC Elapsed Days TREATMENT Reference Point Pelvis [facility] ONC ID TREATMENT Dosage Given To 19.8 [facility] ON[facility] Date TREATMENT Session Dosage 1.8 [facility] ONC Given TREATMENT Plan ID Pelvis [facility] ONC TREATMENT Plan Name Plan_0 [facility] ONC TREATMENT Fractions 11 [facility] ONC Treated to Date TREATMENT Total Fractions 25 [facility] ONC on Plan TREATMENT Prescribed Dose 1.8 [facility] ONC per Fraction TREATMENT Prescription 4,500 [facility] ONC Dose TREATMENT Specimen Performing Organization Address City/State/ZIP Code P shahnaz Number [facility] ONC TREATMENT * RAD ONC TREATMENT INFORMATION (05/22/2021 11:41 AM CDT) Course ID C1-Pelvis [facility] ONC TREATMENT First Treatment 05-09-2021 11:43AM [facility] ONC Date TREATMENT Last Treatment 05-22-2021 11:41AM [facility] ON[facility] Date TREATMENT Treatment 13 [facility] RAD ONC Elapsed Days TREATMENT Reference Point Pelvis [facility] ONC ID TREATMENT Dosage Given To 18 [facility] ONC Date TREATMENT Session Dosage 1.8 [facility] ONC Given TREATMENT Plan ID Pelvis [facility] ONC TREATMENT Plan Name Plan_0 [facility] ONC TREATMENT Fractions 10 [facility] ONC Treated to Date TREATMENT Total Fractions 25 [facility] ONC on Plan TREATMENT Prescribed Dose 1.8 [facility] ONC per Fraction TREATMENT Prescription 4,500 [facility] ONC Dose TREATMENT Specimen Performing Organization Address City/State/ZIP Code P shahnaz Number [facility] ONC TREATMENT * RAD ONC TREATMENT INFORMATION (05/21/2021 11:32 AM CDT) Course ID C1-Pelvis [facility] ONC TREATMENT First Treatment 05-09-2021 11:43AM [facility] ON[facility] Date TREATMENT Last Treatment 05-21-2021 11:32AM [facility] ON[facility] Date TREATMENT Treatment 12 [facility] RAD ONC Elapsed Days TREATMENT Reference Point Pelvis [facility] ONC ID TREATMENT Dosage Given To 16.2 [facility] ONC Date TREATMENT Session Dosage 1.8 [facility] ONC Given TREATMENT Plan ID Pelvis [facility] ONC TREATMENT Plan Name Plan_0 [facility] ONC TREATMENT Fractions 9 [facility] RAD ONC Treated to Date TREATMENT Total Fractions 25 [facility] RAD ONC on Plan TREATMENT Prescribed Dose 1.8 [facility] RAD ONC per Fraction TREATMENT Prescription 4,500 [facility] ONC Dose TREATMENT Specimen Performing Organization Address [facility] P shahnaz Number [facility] ONC TREATMENT * RAD ONC TREATMENT INFORMATION (05/20/2021 11:24 AM CDT) Course ID C1-Pelvis [facility] ONC TREATMENT First Treatment 05-09-2021 11:43AM [facility] ONC Date TREATMENT Last Treatment 05-20-2021 11:24AM [facility] ONC Date TREATMENT Treatment 11 [facility] RAD ONC Elapsed Days TREATMENT Reference Point Pelvis [facility] ONC ID TREATMENT Dosage Given To 14.4 [facility] ONC Date TREATMENT Session Dosage 1.8 [facility] RAD ONC Given TREATMENT Plan ID Pelvis [facility] RAD ONC TREATMENT Plan Name Plan_0 [facility] ONC TREATMENT Fractions 8 [facility] RAD ONC Treated to Date TREATMENT Total Fractions 25 [facility] RAD ONC on Plan TREATMENT Prescribed Dose 1.8 [facility] RAD ONC per Fraction TREATMENT Prescription 4,500 [facility] RAD ONC Dose TREATMENT Specimen Performing Organization Address City/State/ZIP Code P shahnaz Number [facility] ONC TREATMENT * RAD ONC TREATMENT INFORMATION (05/17/2021 11:19 AM CDT) Course ID C1-Pelvis [facility] ONC TREATMENT First Treatment 05-09-2021 11:43AM [facility] ONC Date TREATMENT Last Treatment 05-17-2021 11:19AM [facility] ONC Date TREATMENT Treatment 8 [facility] RAD ONC Elapsed Days TREATMENT Reference Point Pelvis [facility] RAD ONC ID TREATMENT Dosage Given To 12.6 [facility] ONC Date TREATMENT Session Dosage 1.8 [facility] RAD ONC Given TREATMENT Plan ID Pelvis [facility] RAD ONC TREATMENT Plan Name Plan_0 [facility] ONC TREATMENT Fractions 7 [facility] RAD ONC Treated to Date TREATMENT Total Fractions 25 [facility] RAD ONC on Plan TREATMENT Prescribed Dose 1.8 [facility] RAD ONC per Fraction TREATMENT Prescription 4,500 [facility] RAD ONC Dose TREATMENT Specimen Performing Organization Address City/State/ZIP Code P shahnaz Number [facility] ONC TREATMENT * RAD ONC TREATMENT INFORMATION (05/16/2021 11:27 AM CDT) Course ID C1-Pelvis [facility] ONC TREATMENT First Treatment 05-09-2021 11:43AM [facility] ONC Date TREATMENT Last Treatment 05-16-2021 11:27AM [facility] ONC Date TREATMENT Treatment 7 [facility] RAD ONC Elapsed Days TREATMENT Reference Point Pelvis [facility] RAD ONC ID TREATMENT Dosage Given To 10.8 [facility] ONC Date TREATMENT Session Dosage 1.8 [facility] RAD ONC Given TREATMENT Plan ID Pelvis [facility] RAD ONC TREATMENT Plan Name Plan_0 [facility] RAD ONC TREATMENT Fractions 6 [facility] RAD ONC Treated to Date TREATMENT Total Fractions 25 [facility] RAD ONC on Plan TREATMENT Prescribed Dose 1.8 [facility] RAD ONC per Fraction TREATMENT Prescription 4,500 [facility] RAD ONC Dose TREATMENT Specimen Performing Organization Address City/State/ZIP Code P shahnaz Number [facility] ONC TREATMENT * RAD ONC TREATMENT INFORMATION (05/15/2021 11:38 AM CDT) Course ID C1-Pelvis [facility] ONC TREATMENT First Treatment 05-09-2021 11:43AM [facility] ONC Date TREATMENT Last Treatment 05-15-2021 11:38AM [facility] ONC Date TREATMENT Treatment 6 [facility] RAD ONC Elapsed Days TREATMENT Reference Point Pelvis [facility] RAD ONC ID TREATMENT Dosage Given To 9 [facility] RAD ONC Date TREATMENT Session Dosage 1.8 [facility] RAD ONC Given TREATMENT Plan ID Pelvis [facility] RAD ONC TREATMENT Plan Name Plan_0 [facility] RAD ONC TREATMENT Fractions 5 [facility] RAD ONC Treated to Date TREATMENT Total Fractions 25 [facility] RAD ONC on Plan TREATMENT Prescribed Dose 1.8 [facility] RAD ONC per Fraction TREATMENT Prescription 4,500 [facility] RAD ONC Dose TREATMENT Specimen Performing Organization Address [facility]/ZIP Code P shahnaz Number [facility] RAD ONC TREATMENT * RAD ONC TREATMENT INFORMATION (05/14/2021 11:42 AM CDT) Course ID C1-Pelvis [facility] RAD ONC TREATMENT First Treatment 05-09-2021 11:43AM [facility] ONC Date TREATMENT Last Treatment 05-14-2021 11:42AM [facility] ONC Date TREATMENT Treatment 5 [facility] RAD ONC Elapsed Days TREATMENT Reference Point Pelvis [facility] RAD ONC ID TREATMENT Dosage Given To 7.2 [facility] RAD ONC Date TREATMENT Session Dosage 1.8 [facility] RAD ONC Given TREATMENT Plan ID Pelvis [facility] RAD ONC TREATMENT Plan Name Plan_0 [facility] RAD ONC TREATMENT Fractions 4 [facility] RAD ONC Treated to Date TREATMENT Total Fractions 25 [facility] RAD ONC on Plan TREATMENT Prescribed Dose 1.8 [facility] RAD ONC per Fraction TREATMENT Prescription 4,500 [facility] RAD ONC Dose TREATMENT Specimen Performing Organization Address [facility] Code P shahnaz Number [facility] RAD ONC TREATMENT * RAD ONC TREATMENT INFORMATION (05/13/2021 11:23 AM CDT) Course ID C1-Pelvis [facility] RAD ONC TREATMENT First Treatment 05-09-2021 11:43AM [facility] ONC Date TREATMENT Last Treatment 05-13-2021 11:23AM [facility] ONC Date TREATMENT Treatment 4 [facility] RAD ONC Elapsed Days TREATMENT Reference Point Pelvis [facility] RAD ONC ID TREATMENT Dosage Given To 5.4 [facility] RAD ONC Date TREATMENT Session Dosage 1.8 [facility] RAD ONC Given TREATMENT Plan ID Pelvis [facility] RAD ONC TREATMENT Plan Name Plan_0 [facility] RAD ONC TREATMENT Fractions 3 [facility] RAD ONC Treated to Date TREATMENT Total Fractions 25 [facility] RAD ONC on Plan TREATMENT Prescribed Dose 1.8 [facility] RAD ONC per Fraction TREATMENT Prescription 4,500 [facility] RAD ONC Dose TREATMENT Specimen Performing Organization Address [facility] Code P shahnaz Number [facility] RAD ONC TREATMENT * RAD ONC TREATMENT INFORMATION (05/10/2021 11:32 AM CDT) Course ID C1-Pelvis [facility] RAD ONC TREATMENT First Treatment 05-09-2021 11:43AM [facility] RAD ONC Date TREATMENT Last Treatment 05-10-2021 11:32AM [facility] RAD ONC Date TREATMENT Treatment 1 [facility] RAD ONC Elapsed Days TREATMENT Reference Point Pelvis [facility] RAD ONC ID TREATMENT Dosage Given To 3.6 [facility] RAD ONC Date TREATMENT Session Dosage 1.8 [facility] RAD ONC Given TREATMENT Plan ID Pelvis [facility] RAD ONC TREATMENT Plan Name Plan_0 [facility] RAD ONC TREATMENT Fractions 2 [facility] RAD ONC Treated to Date TREATMENT Total Fractions 25 [facility] RAD ONC on Plan TREATMENT Prescribed Dose 1.8 [facility] RAD ONC per Fraction TREATMENT Prescription 4,500 [facility] RAD ONC Dose TREATMENT Specimen Performing Organization Address City/State/ZIP Code P shahnaz Number [facility] ONC TREATMENT * RAD ONC TREATMENT INFORMATION (05/09/2021 11:46 AM CDT) Course ID C1-Pelvis [facility] ONC TREATMENT First Treatment 05-09-2021 11:43AM [facility] RAD ONC Date TREATMENT Last Treatment 05-09-2021 11:46AM [facility] RAD ONC Date TREATMENT Treatment 0 [facility] RAD ONC Elapsed Days TREATMENT Reference Point Pelvis [facility] RAD ONC ID TREATMENT Dosage Given To 1.8 [facility] RAD ONC Date TREATMENT Session Dosage 1.8 [facility] RAD ONC Given TREATMENT Plan ID Pelvis [facility] RAD ONC TREATMENT Plan Name Plan_0 [facility] RAD ONC TREATMENT Fractions 1 [facility] RAD ONC Treated to Date TREATMENT Total Fractions 25 [facility] RAD ONC on Plan TREATMENT Prescribed Dose 1.8 [facility] RAD ONC per Fraction TREATMENT Prescription 4,500 [facility] RAD ONC Dose TREATMENT Specimen Performing Organization Address City/State/ZIP Code P shahnaz Number [facility] ONC TREATMENT * CT ABD/PELV W CONTRAST (04/30/2021 1:00 PM CDT) Specimen Impressions Performed At CHEST: [facility] RAD RESULTS 1. No new/enlarging pulmonary nodule or thoracic lymphadenopathy. 2. Diffusely patulous esophagus which c ontains a small amount of retained fluid. This may be due to esophageal dysmotili ty and/or reflux. Correlation with an esophagram could be obtained for furthe r evaluation. ABDOMEN AND PELVIS: 1. Interval hysterectomy without residu al/recurrent mass in the pelvis. 2. Development of an ovoid, hypodense l esion adjacent to the left common iliac vasculature. The leading consideration is a postoperative seroma or lymphocele. Hypodense lymphadenopathy is a less lik kriss consideration. Continued attention to this lesion on follow-up imaging is rec ommended. 3. Stable, hypodense lesion at the junc tion of segments 8 and 4B of the liver which demonstrate areas of peripheral n odular enhancement. This lesion is incompletely characterized, though is f avored to represent a hemangioma given its stability. Continued attention to t his lesion on follow-up imaging is recommended. Finalized by Randall Delacruz D.O. on 2020 1:27 PM. Dictated by Randall Delacruz D.O. on 04/30/2021 1:13 PM. Narrative Performed At CT scan of the chest, abdomen, and pelvis [facility] RAD RES ULTS CLINICAL HISTORY: Endometrial cancer; u terine cancer. Evaluate response to therapy TECHNIQUE: Multiple contiguous axial im ages were obtained through the chest, abdomen, and pelvis after the IV admini stration of Omnipaque 350 contrast material. Image postprocessing coronal and sagittal reconstructions were obtained from the source axial data. COMPARISON: Prior CT scan of the chest, abdomen, and pelvis from an outside institution January 11, 2021 FINDINGS: CHEST: There has been interval placement of a right IJ chest port catheter terminating at the SVC/right atrial junction. Heart size normal. Thoracic aorta normal in caliber. Mediastinum and pulmonary moi: The eso phagus is diffusely patulous with small amount of retained fluid. There is no l ymphadenopathy. Central airways, lungs, and pleura: Mel tral airways are unremarkable. Several stable, tiny nodules are redemonstrated within the left lung in images 10/11 and 40. No new pulmonary nodule or pleural effusion. Osseous structures and chest wall: No d estructive osseous lesion or axillary lymphadenopathy. ABDOMEN AND PELVIS: Liver and biliary system: A hypodense l esion is redemonstrated at the junction of segments 8 and 4B of the liver measu ring 2.0 x 2.7 cm in image versus 2.0 x 2.6 cm previously. This lesion de monstrates areas of nodular peripheral enhancement and likely represents a hem angioma. No new hepatic lesion is identified. There is no biliary ductal dilation. The major portal veins are patent. Spleen: Unremarkable Adrenal glands and kidneys: Unremarkabl e apart from renal cysts. Pancreas and retroperitoneum: Mild panc reatic atrophy. There has been development of an ovoid hypodense lesio n adjacent to the left common iliac vasculature measuring 1.7 x 2.1 cm imag e . Abdominal aorta and major vessels: The abdominal aorta and iliac arteries are normal in caliber. Bowel, mesentery, and peritoneal space: The bowel loops are nondistended. There is no ascites. Pelvis: The decompressed urinary bladde r is grossly unremarkable. Interval hysterectomy. No residual/recurrent mas s identified along the vaginal cuff or along the pelvic sidewalls. There is no pelvic lymphadenopathy. Osseous structures and body wall: Lumba r spondylosis. No destructive osseous lesion. Procedure Note Interface, Radiant Results - 04/30/2021 1:[address] scan of the chest, abdomen, and pelvis CLINICAL HISTORY: Endometrial cancer; uterine cancer. Evaluate response to therapy TECHNIQUE: Multiple contiguous axial images were obtained through the chest, abdomen, and pelvis after the IV administration of Omnipaque 350 contrast material. Image postprocessing coronal and sagittal reconstructions were obtained from the source axial data. COMPARISON: Prior CT scan of the chest, abdomen, and pelvis from an outside institution January 11, 2021 FINDINGS: CHEST: There has been interval placement of a right IJ chest port catheter terminating at the SVC/right atrial junction. Heart size normal. Thoracic aorta normal in caliber. Mediastinum and pulmonary moi: The esophagus is diffusely patulous with small amount of retained fluid. There is no lymphadenopathy. Central airways, lungs, and pleura: Central airways are unremarkable. Several stable, tiny nodules are redemonstrated within the left lung in images 2/25 and 40. No new pulmonary nodule or pleural effusion. Osseous structures and chest wall: No destructive osseous lesion or axillary lymphadenopathy. ABDOMEN AND PELVIS: Liver and biliary system: A hypodense lesion is redemonstrated at the junction of segments 8 and 4B of the liver measuring 2.0 x 2.7 cm in image 2/73 versus 2.0 x 2.6 cm previously. This lesion demonstrates areas of nodular peripheral enhancement and likely represents a hemangioma. No new hepatic lesion is identified. There is no biliary ductal dilation. The major portal veins are patent. Spleen: Unremarkable Adrenal glands and kidneys: Unremarkable apart from renal cysts. Pancreas and retroperitoneum: Mild pancreatic atrophy. There has been development of an ovoid hypodense lesion adjacent to the left common iliac vasculature measuring 1.7 x 2.1 cm image 2/102. Abdominal aorta and major vessels: The abdominal aorta and iliac arteries are normal in caliber. Bowel, mesentery, and peritoneal space: The bowel loops are nondistended. There is no ascites. Pelvis: The decompressed urinary bladder is grossly unremarkable. Interval hysterectomy. No residual/recurrent mass identified along the vaginal cuff or along the pelvic sidewalls. There is no pelvic lymphadenopathy. Osseous structures and body wall: Lumbar spondylosis. No destructive osseous lesion. IMPRESSION CHEST: 1. No new/enlarging pulmonary nodule or thoracic lymphadenopathy. 2. Diffusely patulous esophagus which co ntains a small amount of retained fluid. This may be due to esophageal dysmotility and/or reflux. Correlation with an esophagram could be obtained for further evaluation. ABDOMEN AND PELVIS: 1. Interval hysterectomy without residua l/recurrent mass in the pelvis. 2. Development of an ovoid, hypodense le tony adjacent to the left common iliac vasculature. The leading consideration is a postoperative seroma or lymphocele. Hypodense lymphadenopathy is a less likely consideration. Continued attention to this lesion on follow-up imaging is recommended. 3. Stable, hypodense lesion at the junct ion of segments 8 and 4B of the liver which demonstrate areas of peripheral nodular enhancement. This lesion is incompletely characterized, though is favored to represent a hemangioma given its stability. Continued attention to this lesion on follow-up imaging is recommended. Finalized by Randall Delacruz D.O. on 04/30/2021 1:27 PM. Dictated by Randall Delacruz D.O. on 04/30/2021 1:13 PM. Performing Organization Address City/State/ZIP Code P shahnaz Number [facility] RAD RESULTS * CT CHEST W CONTRAST (04/30/2021 1:00 PM CDT) Specimen Impressions Performed At CHEST: [facility] RAD RESULTS 1. No new/enlarging pulmonary nodule or thoracic lymphadenopathy. 2. Diffusely patulous esophagus which c ontains a small amount of retained fluid. This may be due to esophageal dysmotili ty and/or reflux. Correlation with an esophagram could be obtained for furthe r evaluation. ABDOMEN AND PELVIS: 1. Interval hysterectomy without residu al/recurrent mass in the pelvis. 2. Development of an ovoid, hypodense l esion adjacent to the left common iliac vasculature. The leading consideration is a postoperative seroma or lymphocele. Hypodense lymphadenopathy is a less lik kriss consideration. Continued attention to this lesion on follow-up imaging is rec ommended. 3. Stable, hypodense lesion at the junc tion of segments 8 and 4B of the liver which demonstrate areas of peripheral n odular enhancement. This lesion is incompletely characterized, though is f avored to represent a hemangioma given its stability. Continued attention to t his lesion on follow-up imaging is recommended. Finalized by Randall Delacruz D.O. on 2020 1:27 PM. Dictated by Randall Delacruz D.O. on 04/30/2021 1:13 PM. Narrative Performed At CT scan of the chest, abdomen, and pelvis [facility] RAD RES ULTS CLINICAL HISTORY: Endometrial cancer; u terine cancer. Evaluate response to therapy TECHNIQUE: Multiple contiguous axial im ages were obtained through the chest, abdomen, and pelvis after the IV admini stration of Omnipaque 350 contrast material. Image postprocessing coronal and sagittal reconstructions were obtained from the source axial data. COMPARISON: Prior CT scan of the chest, abdomen, and pelvis from an outside institution January 11, 2021 FINDINGS: CHEST: There has been interval placement of a right IJ chest port catheter terminating at the SVC/right atrial junction. Heart size normal. Thoracic aorta normal in caliber. Mediastinum and pulmonary moi: The eso phagus is diffusely patulous with small amount of retained fluid. There is no l ymphadenopathy. Central airways, lungs, and pleura: Mel tral airways are unremarkable. Several stable, tiny nodules are redemonstrated within the left lung in images 2 and 40. No new pulmonary nodule or pleural effusion. Osseous structures and chest wall: No d estructive osseous lesion or axillary lymphadenopathy. ABDOMEN AND PELVIS: Liver and biliary system: A hypodense l esion is redemonstrated at the junction of segments 8 and 4B of the liver measu ring 2.0 x 2.7 cm in image 2/73 versus 2.0 x 2.6 cm previously. This lesion de monstrates areas of nodular peripheral enhancement and likely represents a hem angioma. No new hepatic lesion is identified. There is no biliary ductal dilation. The major portal veins are patent. Spleen: Unremarkable Adrenal glands and kidneys: Unremarkabl e apart from renal cysts. Pancreas and retroperitoneum: Mild panc reatic atrophy. There has been development of an ovoid hypodense lesio n adjacent to the left common iliac vasculature measuring 1.7 x 2.1 cm imag e . Abdominal aorta and major vessels: The abdominal aorta and iliac arteries are normal in caliber. Bowel, mesentery, and peritoneal space: The bowel loops are nondistended. There is no ascites. Pelvis: The decompressed urinary bladde r is grossly unremarkable. Interval hysterectomy. No residual/recurrent mas s identified along the vaginal cuff or along the pelvic sidewalls. There is no pelvic lymphadenopathy. Osseous structures and body wall: Lumba r spondylosis. No destructive osseous lesion. Procedure Note Interface, Radiant Results - 04/30/2021 1:[address] scan of the chest, abdomen, and pelvis CLINICAL HISTORY: Endometrial cancer; uterine cancer. Evaluate response to therapy TECHNIQUE: Multiple contiguous axial images were obtained through the chest, abdomen, and pelvis after the IV administration of Omnipaque 350 contrast material. Image postprocessing coronal and sagittal reconstructions were obtained from the source axial data. COMPARISON: Prior CT scan of the chest, abdomen, and pelvis from an outside institution January 11, 2021 FINDINGS: CHEST: There has been interval placement of a right IJ chest port catheter terminating at the SVC/right atrial junction. Heart size normal. Thoracic aorta normal in caliber. Mediastinum and pulmonary moi: The esophagus is diffusely patulous with small amount of retained fluid. There is no lymphadenopathy. Central airways, lungs, and pleura: Central airways are unremarkable. Several stable, tiny nodules are redemonstrated within the left lung in images 2/25 and 40. No new pulmonary nodule or pleural effusion. Osseous structures and chest wall: No destructive osseous lesion or axillary lymphadenopathy. ABDOMEN AND PELVIS: Liver and biliary system: A hypodense lesion is redemonstrated at the junction of segments 8 and 4B of the liver measuring 2.0 x 2.7 cm in image 2/73 versus 2.0 x 2.6 cm previously. This lesion demonstrates areas of nodular peripheral enhancement and likely represents a hemangioma. No new hepatic lesion is identified. There is no biliary ductal dilation. The major portal veins are patent. Spleen: Unremarkable Adrenal glands and kidneys: Unremarkable apart from renal cysts. Pancreas and retroperitoneum: Mild pancreatic atrophy. There has been development of an ovoid hypodense lesion adjacent to the left common iliac vasculature measuring 1.7 x 2.1 cm image 2/102. Abdominal aorta and major vessels: The abdominal aorta and iliac arteries are normal in caliber. Bowel, mesentery, and peritoneal space: The bowel loops are nondistended. There is no ascites. Pelvis: The decompressed urinary bladder is grossly unremarkable. Interval hysterectomy. No residual/recurrent mass identified along the vaginal cuff or along the pelvic sidewalls. There is no pelvic lymphadenopathy. Osseous structures and body wall: Lumbar spondylosis. No destructive osseous lesion. IMPRESSION CHEST: 1. No new/enlarging pulmonary nodule or thoracic lymphadenopathy. 2. Diffusely patulous esophagus which co ntains a small amount of retained fluid. This may be due to esophageal dysmotility and/or reflux. Correlation with an esophagram could be obtained for further evaluation. ABDOMEN AND PELVIS: 1. Interval hysterectomy without residua l/recurrent mass in the pelvis. 2. Development of an ovoid, hypodense le tony adjacent to the left common iliac vasculature. The leading consideration is a postoperative seroma or lymphocele. Hypodense lymphadenopathy is a less likely consideration. Continued attention to this lesion on follow-up imaging is recommended. 3. Stable, hypodense lesion at the junct ion of segments 8 and 4B of the liver which demonstrate areas of peripheral nodular enhancement. This lesion is incompletely characterized, though is favored to represent a hemangioma given its stability. Continued attention to this lesion on follow-up imaging is recommended. Finalized by Randall Delacruz D.O. on 04/30/2021 1:27 PM. Dictated by Randall Delacruz D.O. on 04/30/2021 1:13 PM. Performing Organization Address City/State/ZIP Code P shahnaz Number [facility] RAD RESULTS from Last 3 Months Insurance Type Payer Benefit Subscriber ID Effective Phone Address Plan / Dates Group Medicare MEDICARE MEDICARE [id number] 2020-P PART A AND resent B [employer] MUTUAL OF [id number] 2020-P RAMPART resent Advance Directives Patient Motor And Generator Brush Maker Explanation Type Date Recorded Advance 03/27/2021 11:06 AM Directive/DPOA
--- OUTSIDE RECORDS SUMMARY | 2021-06-17 09:54 | XMS REPORT | Encounter Summary ---
Author Author [facility] Organization [facility] Address Unknown Phone Unavailable Care Team Providers Care Premix Concrete Batcher Name Role Phone Steph Sánchez MD PCP Encounter Details Care Team Description Date Type Department Interface, Aria Treatment Data 06/07/2021 Orders Only Radiation Oncology: [facility] [address] [place] [phone] Social History Date Tobacco Use Types Packs/Day [...] Associated Diag nosis RAD ONC TREATMENT Routine 06/07/2021 INFORMATION 11:49 AM CDT documented in this encounter Results * RAD ONC TREATMENT INFORMATION (06/07/2021 11:49 [...]
--- OUTSIDE RECORDS SUMMARY | 2021-06-17 09:54 | XMS REPORT | Encounter Summary ---
Author Author [facility] Organization [facility] Address Unknown Phone Unavailable Care Team Providers Care Rn Quality Name Role Phone Steph Sánchez MD PCP Encounter Details Care Team Description Date Type Department Interface, Aria Treatment Data 06/12/2021 Orders Only Radiation Oncology: [facility] [address] [facility] [place] [phone] Social History Date Tobacco Use Types Packs/Day [...] TREATMENT Routine 06/12/2021 INFORMATION 11:25 AM CDT documented in this encounter Results * RAD ONC TREATMENT INFORMATION (06/12/2021 [...]
--- OUTSIDE RECORDS SUMMARY | 2021-06-17 09:54 | XMS REPORT | Encounter Summary ---
Author Author [facility] Organization [facility] Address Unknown Phone Unavailable Care Team Providers Care Grease Press Helper Name Role Phone Steph Sánchez MD PCP Encounter Details Care Team Description Date Type Department Interface, Aria Treatment Data 06/10/2021 Orders Only Radiation Oncology: [facility] [address] [facility] [place] [phone] Social History Date Tobacco Use Types Packs/Day [...] Associated Diag nosis RAD ONC TREATMENT Routine 06/10/2021 INFORMATION 11:26 AM CDT documented in this encounter Results * RAD ONC TREATMENT INFORMATION (06/10/2021 11:26 [...]
--- OUTSIDE RECORDS SUMMARY | 2021-06-17 09:54 | XMS REPORT | Encounter Summary ---
Author Author [facility] Organization [facility] Address Unknown Phone Unavailable Care Team Providers Care Senior C Web Developer Name Role Phone Steph Sánchez MD PCP Reason for Visit * Reason Comments Rad Therapy Follow-up Encounter Details Care Team Description Date Type Department Luis A Steiner MD [address] [facility] [place] [address] Arrived 06/13/2021 Nurse Only Radiation Oncology: [facility] [address] [place] [address] Social History Date Tobacco Use Types Packs/Day [...] (97.6 F) 06/13/2021 9:54 AM CDT Temperature - - Respiratory Rate 100% 06/13/2021 9:54 AM CDT Oxygen Saturation - - Inhaled Oxygen Concentration 79.2 kg (174 lb 9.6 oz) 06/13/2021 9:54 AM CDT Weight 157.5 cm (5' 2") 06/13/2021 9:54 AM CDT Height 31.93 06/13/2021 9:54 AM CDT Body Mass Index documented in this [...]
--- OUTSIDE RECORDS SUMMARY | 2021-06-17 09:54 | XMS REPORT | Encounter Summary ---
Author Author [facility] Organization [facility] Address Unknown Phone Unavailable Care Team Providers Care Pressure Tank Operator Name Role Phone Steph Sánchez MD PCP Encounter Details Care Team Description Date Type Department Interface, Aria Treatment Data 06/06/2021 Orders Only Radiation Oncology: [facility] [address] [facility] [place] [phone] Social History Date Tobacco Use Types Packs/Day [...] Associated Diag nosis RAD ONC TREATMENT Routine 06/06/2021 INFORMATION 11:52 AM CDT documented in this encounter Results * RAD ONC TREATMENT INFORMATION (06/06/2021 11:52 [...]
--- OUTSIDE RECORDS SUMMARY | 2021-06-17 09:54 | XMS REPORT | Encounter Summary ---
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 [address] Social History Date Tobacco Use Types Packs/Day [...] Signs Reading Time Taken Comments Vital Sign 123/83 06/13/2021 8:52 AM CDT Blood Pressure 82 06/13/2021 8:52 AM CDT Pulse 36.8 C (98.3 F) 06/13/2021 8:52 AM CDT Temperature 16 06/13/2021 8:52 AM CDT Respiratory Rate 100% 06/13/2021 8:52 AM CDT Oxygen Saturation - - Inhaled Oxygen Concentration 79.3 kg (174 lb 12.8 oz) 06/13/2021 8:52 AM CDT Weight 157.5 cm (5' 2") 06/13/2021 8:52 AM CDT Height 31.97 06/13/2021 8:52 AM CDT Body Mass Index documented in [...] as of this encounter Progress Notes * Theo Mclaughlin MD - 06/13/2021 9:00 AM CDT Subjective GYNECOLOGIC ONCOLOGY EVALUATION Name:Monse Encinas Date: 06/13/21 Referring Physician: Referring Physician: Self Contact Name & Number: [phone] Surgeon: Dr. Claire Zhu Medical Oncologist: Dr. Claire Zhu PCP: Dr. Steph Sánchez Other: FAMILY PRESERVATION WORKER: Dr. Tonia Ta Primary Care Physician: Steph Sánchez CC: Endometriod carcinoma Stage IIIC1. History of Present Illness: Monse Encinas is a 65 y.o. 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 Interval History: Patient referred to [facility] on 12/26/20 for ovarian cyst, PMB and elevated CA 125 (43.3 on 12/04/20). In July while hospitalized a CT scan identified a large ovarian cyst and thickened endometrium. At that time patient reported having int ermittent vaginal spotting over the past two years. On 01/22/2021 patient proceeded with hysterectomy, bso, EUA, SLNB, cystoscopy and SLN mapping. Pathology was consistent with endometrioid adenocarcinoma, FIGO 2 invading 11/17 mm with metastatic endometrial adenocarcinoma identified in 2/3 left obturator n odes and ITC on right obturator nodes. Tumor board recommendations on 01/30/21 were (MMR intact) Chemotherapy consisting of Taxol 175 mg/m with carboplatin AUC of 6 to be g iven every 21 days x 6 cycles. Chemotherapy counseling visit Port placement Ref Rad/onc for EBRT and Vaginal brachy therapy PMH: Cystoid macular edema, Radiation retinopathy, thyroid disease, Brain tumor (benign) s/p proton therapy 2002. Surgical Hx Surgery/Year: Robotic XL, WILLIAN BSO, SLNB 01/22/2021 Reproductive History Menstrual Hx LMP: 15 years ago Having Periods: No Age at first period: 13 Hx Number of pregnancies: 2 Number of live births: 2 Age of first live : 24 Did you breastfeed: Yes If Yes, how long? 3 months with first child and 1 month with the second. Oral Control: Yes Years: 3 months Infertility Medication: No Year/Med Name: Menopausal Hx Age of last period: 50 y/o Hormone Replacement Therapy: No Years: Health Maintenence Last Pap: 12/26/20 Abn History of Pap: Denies Colonoscopy: Denies Mammogram: 2009 Bone scan: Denies DPOA: No Living Will: No 03/08/2021 Is a 65-year-old female comes in for follow-up of her newly diagnosed endometria l cancer. She is due for her first round of Taxol carboplatinum chemotherapy to day. She is doing well feeling well she is quite nervous about proceeding with therapy. She is here with her . She denies any hemoptysis hematochezia melena or headache vision changes or neurologic changes appetite is good energy levels good surgical wounds continue to do well. 03/28/2021 Monse presents for follow-up and C2 of carbo/taxol. She did not have any nause a with C1 but did have severe constipation and required disimpaction at her [facility]. She has previously stopped her daily probiotic and bene-fiber prior to C1 due to concern for possible diarrhea. She has been getting lab work locally ever week which shows a normal WBC and hgb >10. She has some pain in her b/l knees that resolved by day 9 and was improved with ibuprofen. 04/18/2021 This is a 65-year-old female with stage IIIC1 grade 2 endometrial cancer current ly on carbo/taxol chemotherapy with a plan for sandwich therapy. Patient reports her constipation has been better with the last cycle. She did have to take emliy lax and senna due to concern for constipation but she did have a bowel movement right after taking it. She endorses having daily bowel movements and has been ta kelly her probiotic and benafiber daily. She decreased her steroid dose to once a day with the last cycle since she has not had any nausea/vomiting. Patient repo rts having significant acid reflux symptoms with the steroids, this was accompan ied by a "stomach ache". She took nexium twice a day with some relief. She gener ally takes her nexium in the morning. Patient reports having decreased energy an d appetite for the first week after chemotherapy that improved significantly in the last two weeks. She has been exercising by walking 0.5-1mile daily. She jen es any neuropathy but does endorse some tinnitis in the left ear that is infrequ ent and short lived. She denies vaginal bleeding and abdominal pain. 06/13/21 This is a 65-year-old female with stage IIIC1 grade 2 endometrial cancer current ly received chemoradiation sandwich therapy. She completed 3 cycles of carbo/tax ol 05/08/21, and has now completed 25 fraction of pelvic radiation as of 06/06/21 , with plan to start vaginal brachytherapy today through 06/19/21. She reports th at overall she has been feeling quite well, her most bothersome symptom has been diarrhea. She is now taking lomotil and reports significant relief. She did not have a BM yesterday, and had a BM this am with a pudding consistency. Denies va ginal bleeding, vaginal discharge, fever, chills, nausea, vomiting, peripheral n europathy, abdominal pain, hematuria, hematochezia, or changes in bladder functi on. Past Medical History: Medical History: Diagnosis Date Brain tumor (benign) (HCC) Cystoid macular edema History of thyroid disease Radiation retinopathy Patient Active Problem List Diagnosis Date Noted Adjustment reaction with anxiety and depression 05/16/2021 Drug-induced constipation 03/28/2021 Neuropathy 03/28/2021 Brain tumor (benign) (HCC) 02/08/2021 Thyroid disease 02/08/2021 Endometrial cancer (HCC) 02/07/2021 Endometrial adenocarcinoma (HCC) 01/07/2021 Post-radiation retinopathy 05/20/2016 Past Surgical History: Surgical History: Procedure Laterality Date CRANIOTOMY LYMPH NODE BIOPSY VA LAPAROSCOPY TOTAL HYSTERECTOMY UTERUS >250 GM Medications: Current Outpatient Medications: acetaminophen (TYLENOL EXTRA STRENGTH) 500 mg tablet, Take 500 mg by mouth every 6 hours as needed for Pain., Disp: , Rfl: buPROPion HCL SR (WELLBUTRIN SR) 150 mg tablet, Take one tablet by mouth tw ice daily. Take once a day for 1 week. Then increase to twice daily., Disp: 60 t ablet, Rfl: 2 Cholecalciferol (Vitamin D3) 50 mcg (2,000 unit) cap, Take 2,000 Units by m outh daily. 2000 IU, Disp: , Rfl: Cranberry 400 mg cap, Take by mouth., Disp: , Rfl: dexAMETHasone (DECADRON) 4 mg tablet, Take two tablets by mouth daily. On D ays 2-4 of each cycle. (Patient taking differently: Take 2 mg by mouth daily. On Days 2-4 of each cycle. Taking 1/2 tablet for 3 days after treatment.), Disp: 36 tablet, Rfl: 0 diphenhydrAMINE (BENADRYL) 25 mg capsule, Take 25 mg by mouth nightly as ne eded (allergies, sleep)., Disp: , Rfl: diphenoxylate-atropine (LOMOTIL) 2.5-0.025 mg tablet, Take one tablet by mo uth four times daily as needed for Diarrhea. Indications: diarrhea, Disp: 40 tab let, Rfl: [address] (NEXIUM) 20 mg capsule, Take 20 mg by mouth daily., Disp: , Rfl: levothyroxine (SYNTHROID) 150 mcg tablet, Take 150 mcg by mouth daily 30 mi nutes before breakfast. Uses brand name Levothyroxine (not a generic), Disp: , R fl: lidocaine/prilocaine (EMLA) 2.5/2.5 % topical cream, Apply topically to af fected area as Needed., Disp: 30 g, Rfl: 1 loperamide HCl (IMODIUM PO), Take 2 mg by mouth as Needed., Disp: , Rfl: ondansetron (ZOFRAN) 8 mg tablet, Take one tablet by mouth every 8 hours as needed (nausea and vomiting)., Disp: 30 tablet, Rfl: 3 polyethylene glycol 3350 (MIRALAX) 17 g packet, Take one packet by mouth da yadira. (Patient taking differently: Take 17 g by [...] one tablet to two tablets by mouth tw ice daily., Disp: 180 tablet, Rfl: 0 Allergies: Allergies Allergen Reactions Dermabond HIVES and RASH Adhesive RASH Redness, swelling, itching from surgical glue Redness, swelling, itching from surgical glue Penicillins HIVES 02/11/21: patient reports when she was given penicillin in her early 20s she de veloped hives and swelling of her tongue - went back to the doctor who administe red some sort of injection that helped resolve the reaction. Has not had any pen icillins or cephalosporins since then Clindamycin UNKNOWN Developed c.diff infection after receiving clindamycin in 2019 Social History: Social History Socioeconomic History Marital status: Spouse name: Not on file Number of children: Not on file Years of education: Not on file Highest education level: Not on file Occupational History Not on file Tobacco Use Smoking status: Never Smoker Smokeless tobacco: Never Used Vaping Use Vaping Use: Never assessed Substance and Sexual Activity Alcohol use: Not on file Drug use: Not on file Sexual activity: Not on file Other Topics Concern Not on file Social History Narrative Not on file Family History: Family History Problem Relation Age of Onset Migraines Mother Cancer-Breast Maternal Aunt Cancer-Ovarian Paternal Aunt REVIEW OF SYSTEMS: CONSTITUTIONAL: per HPI EYES: negative ENT: negative RESPIRATORY: negative CARDIOVASCULAR: negative GI: per HPI : negative MUSCULO-SKELETAL: negative SKIN: negative ENDOCRINE: negative HEMATOLOGIC: negative ECOG 0-1 Physical Exam: BP 123/83 (BP Source: Arm, Right Upper, Patient Position: Sitting) | Pulse 82 | Temp 36.8 C (98.3 F) (Oral) | Resp 16 | Ht 157.5 cm (62") | Wt 79.3 kg (174 lb 12.8 oz) | SpO2 100% | BMI 31.97 kg/m GENERAL APPEARANCE: Appears healthy. Alert; in no acute distress. Pleasant. HEENT: Unremarkable. No tenderness or masses noted. NECK: Neck supple. No tenderness. No adenopathy. LUNGS: Chest symmetrical. Good diaphragmatic excursion. Lungs clear; normal mariano th sounds. CARDIOVASCULAR: RRR. Heart sounds normal. ABDOMEN: Abdomen soft, non-tender. PELVIC: deferred EXTREMITIES: Extremities normal. No joint deformities, edema, or skin discolorat ion. Station and gait normal. SKIN: Skin color, texture, turgor normal. No rashes or lesions. ASSESSMENT/PLAN: ICD-9-CM ICD-10-CM 1. Endometrial cancer (HCC) 182.0 C54.1 2. Thyroid disease 246.9 E07.9 3. Post-radiation retinopathy, sequela 909.4 T66.XXXS H35.89 4. Neuropathy 355.9 G62.9 5. Endometrial adenocarcinoma (HCC) 182.0 C54.1 6. Drug-induced constipation 564.09 K59.03 E980.5 7. 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 Adjustment reaction with anxiety and depression 309.28 F43.23 Monse Encinas is a 65 y.o. female with at least stage IIIC1 FIGO grade 2 end ometrioid adenocarcinoma with LVI. She is now s/p 3 cycles of carbo/taxol and pe lvic radiation, currently undergoing vaginal brachytherapy. We discussed the plan to complete sandwich therapy with 3 additional cycles of c arbo/taxol starting 4 weeks after completion of pelvic radiation. For diarrhea, advised continuing lomotil as prescribed for now. May be able to taper off this medication over the next 4 weeks. She expressed understanding. Plan for RV with chemotherapy on 07/04, 07/25, and 08/15 Labs prior to each visit Will obtain Ct c/a/p at completion of chemotherapy Continue treatment and f/u with Dr. Steiner as scheduled Ly Rosa MD, MPH Gynecologic Oncology, PGY-6 Staff name: Theo Mclaughlin MD Date: 06/13/2021 ATTESTATION I personally interviewed and examined the patient. I have reviewed the history, physical, impression and plan outlined by the fellow. The patient presents with (HPI) 65-year-old female with history of stage IIIc FI GO grade 2 endometrial adenocarcinoma with LVI, currently receiving adjuvant the rapy was "sandwich therapy". Patient is currently receiving brachytherapy On examination there is no evidence of recurrent disease, My impression is the patient is currently doing well has tolerated chemotherapy well. And significant side effects of radiation therapy including diarrhea whic h is now controlled with Imodium., My plan is to restart chemotherapy in approximately 3 weeks. Finish out her las t 3 rounds of therapy and then put her on surveillance. Staff name: Theo Mclaughlin MD Date: 06/13/2021 documented in this encounter Plan of Treatment Not on filedocumented as of this encounter Visit Diagnoses Diagnosis Endometrial cancer (HCC) - Primary Malignant neoplasm of corpus uteri, exc ept isthmus Thyroid disease Unspecified disorder of thyroid Post-radiation retinopathy, sequela Neuropathy Mononeuritis of unspecified site Endometrial adenocarcinoma (HCC) Malignant neoplasm of corpus uteri, exc ept isthmus Drug-induced constipation Other constipation Benign neoplasm of supratentorial regio n of brain (HCC) Benign neoplasm of brain Adjustment reaction with anxiety and de pression Adjustment disorder with mixed anxiety and depressed mood documented in this encounter Additional Health Concerns Assessment Noted Time A fall risk assessment has been completed for the pat ient 06/13/2021 8:53 AM CDT documented as of this encounter
--- OUTSIDE RECORDS SUMMARY | 2021-06-17 09:54 | XMS REPORT | Encounter Summary ---
Author Author [facility] Organization [facility] Address Unknown Phone Unavailable Care Team Providers Care Electronic Device Monitor Name Role Phone Steph Sánchez MD PCP Encounter Details Care Team Description Date Type Department Interface, Aria Treatment Data 05/30/2021 Orders Only Radiation Oncology: [facility] [address] [place] [phone] Social History Date Tobacco Use Types Packs/Day [...] Associated Diag nosis RAD ONC TREATMENT Routine 05/30/2021 INFORMATION 12:23 PM CDT documented in this encounter Results * RAD ONC TREATMENT INFORMATION (05/30/2021 12:23 [...]
--- OUTSIDE RECORDS SUMMARY | 2021-06-17 09:54 | XMS REPORT | Encounter Summary ---
Author Author [facility] Organization [facility] Address Unknown Phone Unavailable Care Team Providers Care Proposition Player Name Role Phone Steph Sánchez MD PCP Encounter Details Care Team Description Date Type Department 05/30/2021 Travel Social History Date Tobacco Use Types [...]
--- OUTSIDE RECORDS SUMMARY | 2021-06-17 09:54 | XMS REPORT | Encounter Summary ---
Author Author [facility] Organization [facility] Address Unknown Phone Unavailable Care Team Providers Care Chief Accountant Name Role Phone Steph Sánchez MD PCP Encounter Details Care Team Description Date Type Department Interface, Aria Treatment Data 06/11/2021 Orders Only Radiation Oncology: [facility] [address] [facility] [place] [phone] Social History Date Tobacco Use Types Packs/Day [...] Associated Diag nosis RAD ONC TREATMENT Routine 06/11/2021 INFORMATION 11:32 AM CDT documented in this encounter Results * RAD ONC TREATMENT INFORMATION (06/11/2021 11:32 [...]
--- OUTSIDE RECORDS SUMMARY | 2021-06-17 09:54 | XMS REPORT | Encounter Summary ---
Author Author [facility] Organization [facility] Address Unknown Phone Unavailable Care Team Providers Care Meteorological Observer Name Role Phone Steph Sánchez MD PCP Encounter Details Care Team Description Date Type Department Interface, Aria Treatment Data 06/03/2021 Orders Only Radiation Oncology: [facility] [address] [facility] [place] [phone] Social History Date Tobacco Use Types Packs/Day [...] Associated Diag nosis RAD ONC TREATMENT Routine 06/03/2021 INFORMATION 11:25 AM CDT documented in this encounter Results * RAD ONC TREATMENT INFORMATION (06/03/2021 11:25 [...]
--- OUTSIDE RECORDS SUMMARY | 2021-06-17 09:54 | XMS REPORT | Encounter Summary ---
Author Author [facility] Organization [facility] Address Unknown Phone Unavailable Care Team Providers Care Loom Fixer Apprentice Name Role Phone Steph Sánchez MD PCP Encounter Details Care Team Description Date Type Department Luis A Steiner MD [email or web address] [facility] Onc [place], [place] [phone] 06/11/2021 Orders Only [facility] [email or web address] [facility] [place] [address] Social History Date Tobacco Use [...] impairment: No documented as of this encounter Ordered Prescriptions Start Date End Date Prescription Sig Dispensed Refills 06/11/2021 diphenoxylate-atropine Take one 40 tablet 1 (LOMOTIL) 2.5-0.025 mg tablet by tabletIndications: mouth four diarrhea times daily as needed for Diarrhea. Indications: diarrhea documented in this encounter Plan of Treatment Not on filedocumented as of this encounter Visit Diagnoses Not on filedocumented in this encounter Additional Health Concerns Assessment Noted Time A fall risk assessment has been completed for the pat ient 06/06/2021 12:09 PM CDT documented as of this encounter
--- OUTSIDE RECORDS SUMMARY | 2021-06-17 09:54 | XMS REPORT | Encounter Summary ---
Author Author [facility] Organization [facility] Address Unknown Phone Unavailable Care Team Providers Care Greenhouse Worker Name Role Phone Steph Sánchez MD PCP Encounter Details Care Team Description Date Type Department Luis A Steiner MD [address] [facility] Onc [place], [place] [phone] 06/11/2021 Orders Only [facility]iation Oncology: [facility] [place] [address] [facility] [place] [address] Social History Date Tobacco Use [...]
--- OUTSIDE RECORDS SUMMARY | 2021-06-17 09:55 | XMS REPORT | Encounter Summary ---
Author Author [facility] Organization [facility] Address Unknown Phone Unavailable Care Team Providers Care Clinical Data Manager Name Role Phone Steph Sánchez MD PCP Encounter Details Care Team Description Date Type Department 05/14/2021 Travel Social History Date Tobacco Use Types Packs/Day Years Used Never Smoker Smokeless Tobacco: Never Used Sex Assigned at Date Recorded Female 02/08/2021 1:20 PM CDT Date Recorded COVID-19 Exposure Response 05/14/2021 10:51 AM CDT In the last month, have [...] filedocumented in this encounter Additional Health Concerns Last Indicated Resolved Time Infection Onset Date 05/14/2021 05/14/2021 9:19 PM CDT C difficile Rule-Out 05/13/2021 Assessment Noted Time A fall risk assessment has been completed for the pat ient 05/09/2021 11:57 AM CDT documented as of this encounter
--- OUTSIDE RECORDS SUMMARY | 2021-06-17 09:55 | XMS REPORT | Encounter Summary ---
Author Author [facility] Organization [facility] Address Unknown Phone Unavailable Care Team Providers Care Bias Binding Cutter Name Role Phone Steph Sánchez MD PCP Encounter Details Care Team Description Date Type Department Interface, [facility] Treatment Data 05/27/2021 Orders Only Radiation Oncology: [facility] [address] [facility] [place] [phone] Social History Date Tobacco Use Types Packs/Day Years Used Never Smoker Smokeless Tobacco: Never Used Sex Assigned at Date Recorded Female 02/08/2021 1:20 PM CDT Date Recorded COVID-19 Exposure Response 05/23/2021 11:19 AM CDT In the last month, have [...] Associated Diag nosis RAD ONC TREATMENT Routine 05/27/2021 INFORMATION 11:37 AM CDT documented in this encounter Results * RAD ONC TREATMENT INFORMATION (05/27/2021 11:37 [...] has been completed for the pat ient 05/23/2021 12:01 PM CDT documented as of this encounter
--- OUTSIDE RECORDS SUMMARY | 2021-06-17 09:55 | XMS REPORT | Encounter Summary ---
Author Author [facility] Organization [facility] Address Unknown Phone Unavailable Care Team Providers Care Clinical Engineering Manager Name Role Phone Steph Sánchez MD PCP Encounter Details Care Team Description Date Type Department Jasmine Eng BSN Endometrial adenocarcinoma (HCC) (Primar y Dx) 05/13/2021 Orders Only Radiation Oncology: [facility] [place] [address] Social History Date Tobacco Use Types Packs/Day Years Used Never Smoker Smokeless Tobacco: Never Used Sex Assigned at Date Recorded Female 02/08/2021 1:20 PM CDT Date Recorded COVID-19 Exposure Response 05/09/2021 11:28 AM CDT In the last month, have [...] of this encounter Visit Diagnoses Diagnosis Endometrial adenocarcinoma (HCC) - Prim tori Malignant neoplasm of corpus uteri, exc ept isthmus documented in this encounter Additional Health Concerns Last Indicated Resolved Time Infection Onset Date 05/14/2021 05/14/2021 9:19 PM CDT C difficile Rule-Out 05/13/2021 Assessment Noted Time A fall risk assessment has been completed for the pat ient 05/09/2021 11:57 AM CDT documented as of this encounter
--- OUTSIDE RECORDS SUMMARY | 2021-06-17 09:55 | XMS REPORT | Encounter Summary ---
Author Author [facility] Organization [facility] Address Unknown Phone Unavailable Care Team Providers Care Disability Services Coordinator Name Role Phone Steph Sánchez MD PCP Encounter Details Care Team Description Date Type Department [facility] 05/20/2021 Orders Only Radiation Oncology: [facility] [address] [facility] [place] [phone] Social History Date Tobacco Use Types Packs/Day Years Used Never Smoker Smokeless Tobacco: Never Used Sex Assigned at Date Recorded Female 02/08/2021 1:20 PM CDT Date Recorded COVID-19 Exposure Response 05/16/2021 11:12 AM CDT In the last month, have [...] Associated Diag nosis RAD ONC TREATMENT Routine 05/20/2021 INFORMATION 11:24 AM CDT documented in this encounter Results * RAD ONC TREATMENT INFORMATION (05/20/2021 11:24 [...] has been completed for the pat ient 05/16/2021 11:41 AM CDT documented as of this encounter
--- OUTSIDE RECORDS SUMMARY | 2021-06-17 09:55 | XMS REPORT | Encounter Summary ---
Author Author [facility] Organization [facility] Address Unknown Phone Unavailable Care Team Providers Care Business Systems Advisor Name Role Phone Steph Sánchez MD PCP Reason for Visit * Reason Onset Date Comments Palliative Care 05/09/2021 Encounter Details Care Team Description Date Type Department Candy Templeton MD [address] [facility] [place] [address] [phone] Palliative Care 05/09/2021 Telephone Palliative Care: [facility] [address] [place] [address] Social History Date Tobacco Use Types Packs/Day Years Used Never Smoker Smokeless Tobacco: Never Used Sex Assigned at Date Recorded Female 02/08/2021 1:20 PM CDT Date Recorded COVID-19 Exposure Response 04/30/2021 11:32 AM CDT In the last month, have [...] impairment: No documented as of this encounter Miscellaneous Notes * Telephone Encounter - Elyse Owens, RN - 05/09/2021 8:44 AM CDT PCRN placed follow up call to pt in regards to PCMD appt 05/15/21. Pt requesting that she wait until after her radiation appt today to reschedule PCMD appt as sh e will know her schedule better. PCRN provided support and in agreement . Will a wait call back to reschedule. PCRN contact number given if any questions or conc erns arise. documented in this encounter Plan of Treatment Not on filedocumented as of this encounter Visit Diagnoses Not on filedocumented in this encounter Additional Health Concerns Assessment Noted Time A fall risk assessment has been completed for the pat ient 05/09/2021 11:57 AM CDT documented as of this encounter
--- OUTSIDE RECORDS SUMMARY | 2021-06-17 09:55 | XMS REPORT | Encounter Summary ---
Author Author [facility] Organization [facility] Address Unknown Phone Unavailable Care Team Providers Care Caddy Master Name Role Phone Steph Sánchez MD PCP Encounter Details Care Team Description Date Type Department Interface, [facility] Treatment Data 05/15/2021 Orders Only Radiation Oncology: [facility] [address] [place] [phone] Social History Date Tobacco Use Types Packs/Day [...] Associated Diag nosis RAD ONC TREATMENT Routine 05/15/2021 INFORMATION 11:38 AM CDT documented in this encounter Results * RAD ONC TREATMENT INFORMATION (05/15/2021 11:38 [...] Specimen Performing Organization Address City/State/ZIP Code P sh[place]haz Number [place] RAD ONC TREATMENT documented in this encounter Visit Diagnoses Not on filedocumented in this encounter Additional Health Concerns Assessment Noted Time A fall risk assessment has been completed for the pat ient 05/15/2021 2:22 PM CDT documented as of this encounter
--- OUTSIDE RECORDS SUMMARY | 2021-06-17 09:55 | XMS REPORT | Encounter Summary ---
Author Author [facility] Organization [facility] Address Unknown Phone Unavailable Care Team Providers Care Ship Fitter Name Role Phone Steph Sánchez MD PCP Encounter Details Care Team Description Date Type Department [facility] Data 05/29/2021 Orders Only Radiation Oncology: [facility] [address] [facility] [place] [phone] Social History Date Tobacco Use Types Packs/Day [...] Associated Diag nosis RAD ONC TREATMENT Routine 05/29/2021 INFORMATION 11:29 AM CDT documented in this encounter Results * RAD ONC TREATMENT INFORMATION (05/29/2021 11:29 [...]
--- OUTSIDE RECORDS SUMMARY | 2021-06-17 09:55 | XMS REPORT | Encounter Summary ---
Author Author [facility] Organization [facility] Address Unknown Phone Unavailable Care Team Providers Care Field Installation Technician Name Role Phone Steph Sánchez MD PCP Encounter Details Care Team Description Date Type Department Interface, [facility] Treatment Data 05/16/2021 Orders Only Radiation Oncology: [facility] [address] [facility] [place] [phone] Social History Date Tobacco Use Types Packs/Day [...] Associated Diag nosis RAD ONC TREATMENT Routine 05/16/2021 INFORMATION 11:27 AM CDT documented in this encounter Results * RAD ONC TREATMENT INFORMATION (05/16/2021 11:27 [...]
--- OUTSIDE RECORDS SUMMARY | 2021-06-17 09:55 | XMS REPORT | Encounter Summary ---
Author Author [facility] Organization [facility] Address Unknown Phone Unavailable Care Team Providers Care Resaw Carriage Operator Name Role Phone Steph Sánchez MD PCP Encounter Details Care Team Description Date Type Department 05/23/2021 Travel Social History Date Tobacco Use Types [...]
--- OUTSIDE RECORDS SUMMARY | 2021-06-17 09:55 | XMS REPORT | Encounter Summary ---
Author Author [facility] Organization [facility] Address Unknown Phone Unavailable Care Team Providers Care Nursery Helper Name Role Phone Steph Sánchez MD PCP Encounter Details Care Team Description Date Type Department Interface, [facility] Treatment Data 05/09/2021 Orders Only Radiation Oncology: [facility] [address] [place] [phone] Social History Date Tobacco Use Types Packs/Day [...] Associated Diag nosis RAD ONC TREATMENT Routine 05/13/2021 INFORMATION 11:23 AM CDT RAD ONC TREATMENT Routine 05/10/2021 INFORMATION 11:32 AM CDT RAD ONC TREATMENT Routine 05/09/2021 INFORMATION 11:46 AM CDT documented in this encounter Results * RAD ONC TREATMENT INFORMATION (05/13/2021 11:23 [...] ONC Dose TREATMENT Specimen Performing Organization Address [facility]/ZIP Code P shahnaz Number [facility] RAD [...] ONC Dose TREATMENT Specimen Performing Organization Address [facility]/ZIP Code P shahnaz Number [facility] RAD [...]
--- OUTSIDE RECORDS SUMMARY | 2021-06-17 09:55 | XMS REPORT | Encounter Summary ---
Author Author [facility] Organization [facility] Address Unknown Phone Unavailable Care Team Providers Care Certified Ophthalmic Medical Technician Name Role Phone Steph Sánchez MD PCP Encounter Details Care Team Description Date Type Department Interface, [facility] Treatment Data 05/21/2021 Orders Only Radiation Oncology: [facility] [address] [facility] [place] [phone] Social History Date Tobacco Use Types Packs/Day [...] Associated Diag nosis RAD ONC TREATMENT Routine 05/21/2021 INFORMATION 11:32 AM CDT documented in this encounter Results * RAD ONC TREATMENT INFORMATION (05/21/2021 11:32 [...]
--- OUTSIDE RECORDS SUMMARY | 2021-06-17 09:55 | XMS REPORT | Encounter Summary ---
Author Author [facility] Organization [facility] Address Unknown Phone Unavailable Care Team Providers Care Neonatal Social Worker Name Role Phone Steph Sánchez MD PCP Encounter Details Care Team Description Date Type Department Interface, [facility] Treatment Data 05/14/2021 Orders Only Radiation Oncology: [facility] [address] [facility] [place] [phone] Social History Date Tobacco Use Types Packs/Day [...] Associated Diag nosis RAD ONC TREATMENT Routine 05/14/2021 INFORMATION 11:42 AM CDT documented in this encounter Results * RAD ONC TREATMENT INFORMATION (05/14/2021 11:42 [...]
--- OUTSIDE RECORDS SUMMARY | 2021-06-17 09:55 | XMS REPORT | Encounter Summary ---
Author Author [facility] Organization [facility] Address Unknown Phone Unavailable Care Team Providers Care Station Gateman Name Role Phone Steph Sánchez MD PCP Encounter Details Care Team Description Date Type Department Fabiana Robertson LMSW 04/30/2021 Documentation Radiation Oncology: [facility] [address] [place] [address]. [place] [phone] Social History Date Tobacco Use Types Packs/Day [...] as of this encounter Progress Notes * Fabiana Robertson LMSW - 04/30/2021 12:58 PM CDT Plan: Check in with pt. Intervention: SW met briefly with pt to offer assistance as needed. Pt reported she had no SW needs at this time and politely declined to meet with SW. SW to remain available. Nusrat Robertson LMSW Manager Auto [phone]; Voalte Me documented in this encounter Plan of Treatment Not on filedocumented as of this encounter Visit Diagnoses Not on filedocumented in this encounter Additional Health Concerns Assessment Noted Time A fall risk assessment has been completed for the pat ient 04/30/2021 9:54 AM CDT documented as of this encounter
--- OUTSIDE RECORDS SUMMARY | 2021-06-17 09:55 | XMS REPORT | Encounter Summary ---
Author Author [facility] Organization [facility] Address Unknown Phone Unavailable Care Team Providers Care Reagent Tender Name Role Phone Steph Sánchez MD PCP Reason for Visit * Reason Comments On-treatment Encounter Details Care Team Description Date Type Department Luis A Steiner MD [address] [place] [address] Endometrial cancer (HCC) (Primary Dx) 05/30/2021 Office Visit [facility] [place] [address] [place] [address] Social History Date Tobacco Use [...] Signs Reading Time Taken Comments Vital Sign 125/88 05/30/2021 12:29 PM CDT Blood Pressure 81 05/30/2021 12:29 PM CDT Pulse 36.4 C (97.6 F) 05/30/2021 12:29 PM CDT Temperature - - Respiratory Rate 100% 05/30/2021 12:29 PM CDT Oxygen Saturation - - Inhaled Oxygen Concentration 79.9 kg (176 lb 3.2 oz) 05/30/2021 12:29 PM CDT Weight 157.5 cm (5' 2") 05/30/2021 12:29 PM CDT Height 32.23 05/30/2021 12:29 PM CDT Body Mass Index documented in [...] Notes * Luis A Steiner MD - 05/30/2021 11:30 AM CDT Weekly Management Progress Note Date: 05/30/2021 Monse Encinas is a 65 y.o. female. Vitals: Vitals: 05/30/21 1229 BP: 125/88 BP Source: Arm, Left Upper Patient Position: Sitting Pulse: 81 Temp: 36.4 C (97.6 F) TempSrc: Temporal SpO2: 100% Weight: 79.9 kg (176 lb 3.2 oz) Height: 157.5 cm (62") PainSc: Three Subjective The encounter diagnosis was Endometrial cancer (HCC). Staging: Cancer Staging No matching staging information was found for the patient. Body mass index is 32.23 kg/m. Pain Score: Three Fatigue Scale: 0-None Treatment Data Summary: Treatment Data 05/22/2021 05/23/2021 05/24/2021 05/27/2021 05/28/2021 05/29/2021 Course ID C1-Pelvis C1-Pelvis C1-Pelvis C1-Pelvis C1-Pelvis C1-Pelvis C1-Pelvis Plan ID Pelvis Pelvis Pelvis Pelvis Pelvis Pelvis Pelvis Prescription Dose (cGy) 4,500 4,500 4,500 4,500 4,500 4,500 4,500 Prescribed Dose per Fraction (Gy) 1.8 1.8 1.8 1.8 1.8 1.8 1.8 Fractions Treated to Date 10 11 12 13 14 15 16 Total Fractions on Plan 25 25 25 25 25 25 25 Treatment Elapsed Days 13 14 15 18 19 20 21 Reference Point ID Pelvis Pelvis Pelvis Pelvis Pelvis Pelvis Pelvis Dosage Given to Date (Gy) 18 19.8 21.6 23.4 25.2 27 28.8 Subjective: She stated that she began to have burning sensation during urinatio n since last week. She has Cranberry tabs daily with slightly increased nocturia . No hematuria, urinary urgency or incontinence. Diarrhea under control with Im modium as needed. Feeling tired in the afternoon between 3 to 4. Objective: NAD. She is alert and oriented and provides appropriate responses to questions. Assessment/Plan: UA with reflex Today. Will contact patient if she needs anti biotics. AZO is recommended instead of cranberry tabs for pain relief. Continue radiation therapy as scheduled. Johanne Uribe MD Radiation Oncology Resident, PGY-2 [facility] Pager # [phone] ATTESTATION I personally performed the chairez portions of the E/M visit, discussed case with re sident and concur with resident documentation of history, physical exam, assessm ent, and treatment plan unless otherwise noted. Staff name: Luis A Steiner MD Date: 06/04/2021 documented in this encounter Plan of Treatment Order Schedule Name Type Priority Associated Diag noses Ordered: 05/30/2021 URINALYSIS DIPSTICK Lab Routine Endometria l cancer (HCC) REFLEX TO CULTURE Ordered: 05/30/2021 URINALYSIS MICROSCOPIC Lab Routine Endomet rial cancer (HCC) REFLEX TO CULTURE Ordered: 05/30/2021 UA REFLEX LABEL Lab Routine Endometrial ca ncer (HCC) documented as of this encounter Visit Diagnoses Diagnosis Endometrial cancer (HCC) - Primary Malignant neoplasm of corpus uteri, exc ept isthmus documented in this encounter Additional Health Concerns Assessment Noted Time A fall risk assessment has been completed for the pat ient 05/30/2021 12:30 PM CDT documented as of this encounter
--- OUTSIDE RECORDS SUMMARY | 2021-06-17 09:55 | XMS REPORT | Encounter Summary ---
Author Author [facility] Organization [facility] Address Unknown Phone Unavailable Care Team Providers Care Protective Signal Installer Helper Name Role Phone Steph Sánchez MD PCP Encounter Details Care Team Description Date Type Department 05/16/2021 Travel Social History Date Tobacco Use Types [...]
--- OUTSIDE RECORDS SUMMARY | 2021-06-17 09:55 | XMS REPORT | Encounter Summary ---
Author Author [facility] Organization [facility] Address Unknown Phone Unavailable Care Team Providers Care Extrusion Line Operator Name Role Phone Steph Sánchez MD PCP Reason for Visit * Reason Comments On-treatment Encounter Details Care Team Description Date Type Department Luis A Steiner MD [address] [facility] [place] [address] Endometrial cancer (HCC) (Primary Dx) 05/23/2021 Office Visit [facility] [place] [address] [employer] [place] [address] Social History Date Tobacco Use [...] Signs Reading Time Taken Comments Vital Sign 140/75 05/23/2021 12:00 PM CDT Blood Pressure 87 05/23/2021 12:00 PM CDT Pulse - - Temperature - - Respiratory Rate 100% 05/23/2021 12:00 PM CDT Oxygen Saturation - - Inhaled Oxygen Concentration 80.3 kg (177 lb) 05/23/2021 12:00 PM CDT Weight 157.5 cm (5' 2") 05/23/2021 12:00 PM CDT Height 32.37 05/23/2021 12:00 PM CDT Body Mass Index documented in [...] Notes * Luis A Steiner MD - 05/23/2021 11:30 AM CDT Weekly Management Progress Note Date: 05/23/2021 Monse Encinas is a 65 y.o. female. Vitals: Vitals: 05/23/21 1200 BP: (!) 140/75 Pulse: 87 SpO2: 100% Weight: 80.3 kg (177 lb) Height: 157.5 cm (62") PainSc: Zero Subjective There were no encounter diagnoses. Staging: Cancer Staging No matching staging information was found for the patient. Body mass index is 32.37 kg/m. Pain Score: Zero Fatigue Scale: 1 Treatment Data Summary: Treatment Data 05/15/2021 05/16/2021 05/17/2021 05/20/2021 05/21/2021 05/22/20212020 Course ID C1-Pelvis C1-Pelvis C1-Pelvis C1-Pelvis C1-Pelvis C1-Pelvis C1-Pelvis Plan ID Pelvis Pelvis Pelvis Pelvis Pelvis Pelvis Pelvis Prescription Dose (cGy) 4,500 4,500 4,500 4,500 4,500 4,500 4,500 Prescribed Dose per Fraction (Gy) 1.8 1.8 1.8 1.8 1.8 1.8 1.8 Fractions Treated to Date 5 6 7 8 9 10 11 Total Fractions on Plan 25 25 25 25 25 25 25 Treatment Elapsed Days 6 7 8 11 12 13 14 Reference Point ID Pelvis Pelvis Pelvis Pelvis Pelvis Pelvis Pelvis Dosage Given to Date (Gy) 9 10.8 12.6 14.4 16.2 18 19.8 Subjective: Diarrhea 5 times yesterday. She managed symptomatically with imodi um and sits baths. The patient has baseline diarrhea before XRT. Was on immodium every other day. She said taking immodium upsets her stomach. She also stated t hat she drank 1 Gallon of fluid shy of 12 ounce yesterday. Also she experienced urgency, UTI like burning sensation yesterday . Today both dietary and urinary symptoms are improved. Good energy level. Walking one mile a day. She is in b manjit mood today. She hasn't taken the prescribed antidepression pills Objective: NAD. She is alert and oriented and provides appropriate responses to questions. Assessment/Plan: Continue radiation therapy as scheduled. Before breakfast im modium and prn before dinner are recommended. Aquaphor is recommended for dry sk in. Patient education on good hydration is also provided. Johanne Uribe MD Radiation Oncology Resident, PGY-2 [facility] Pager # [phone] ATTESTATION I personally performed the chairez portions of the E/M visit, discussed case with re sident and concur with resident documentation of history, physical exam, assessm ent, and treatment plan unless otherwise noted. Staff name: Luis A Steiner MD Date: 05/26/2021 documented in this encounter Plan of Treatment [...]
--- OUTSIDE RECORDS SUMMARY | 2021-06-17 09:55 | XMS REPORT | Encounter Summary ---
Author Author [facility] Organization [facility] Address Unknown Phone Unavailable Care Team Providers Care Community Health Coordinator Name Role Phone Steph Sánchez MD PCP Encounter Details Care Team Description Date Type Department [facility] 05/23/2021 Orders Only Radiation Oncology: [facility] [address] [facility] [place] [phone] Social History Date Tobacco Use Types Packs/Day [...] Associated Diag nosis RAD ONC TREATMENT Routine 05/23/2021 INFORMATION 11:48 AM CDT documented in this encounter Results * RAD ONC TREATMENT INFORMATION (05/23/2021 11:48 [...]
--- OUTSIDE RECORDS SUMMARY | 2021-06-17 09:55 | XMS REPORT | Encounter Summary ---
Author Author [facility] Organization [facility] Address Unknown Phone Unavailable Care Team Providers Care Manufacturing Controls Engineer Name Role Phone Steph Sánchez MD PCP Encounter Details Care Team Description Date Type Department [facility] Data 05/24/2021 Orders Only Radiation Oncology: [facility] [address] [place] [phone] Social History Date Tobacco Use Types Packs/Day [...] Associated Diag nosis RAD ONC TREATMENT Routine 05/24/2021 INFORMATION 12:02 PM CDT documented in this encounter Results * RAD ONC TREATMENT INFORMATION (05/24/2021 12:02 [...]
--- OUTSIDE RECORDS SUMMARY | 2021-06-17 09:55 | XMS REPORT | Encounter Summary ---
Author Author [facility] Organization [facility] Address Unknown Phone Unavailable Care Team Providers Care Film Developer Name Role Phone Steph Sánchez MD PCP Reason for Visit * Reason Comments Palliative Care Encounter Details Care Team Description Date Type Department Candy Templeton MD [address] [facility] [place] [address] [phone] Drug-induced constipation (Primary Dx); Endometrial adenocarcinoma (HCC); Neuropathy; Adjustment reaction with anxiety and depression 05/15/2021 Office Visit Palliative Care: [facility] [address] [facility]. [place], [place] [phone] Social History Date Tobacco Use Types Packs/Day [...] impairment: No documented as of this encounter Patient Instructions * Patient Instructions* Elyse Owens RN - 05/15/2021 2:30 PM CDT Outpatient Palliative Care: Palliative Care Nurse:Elyse Owens RN [phone] I work Thursday - Thursday 8-4:30. I am seeing patients with my Doctor on and , so during that time I may not be able to answer phones or mes sages quickly, if you need me immediately please call [phone] Instructions from todays visit: buproprion XL (WELLBUTRIN XL) 150 mg, 1 tablet by mouth once daily for 1 week. I f tolerating well , increase to 1 tablet by mouth twice daily. General Instructions: Palliative Care Clinic General Instructions Contact [facility] please program this into your zac ne now. MyChart: Send a [employer] message to your physician's attention and include the nu rse's name. [employer] messages are best for simple requests or questions. If you h ave not heard from the clinic by the next business day, please call. If the issu e is complex or urgent, do not use [employer]. It is better to call the [facility] business hours. Clinic Hours Business Hours: 8am 4:30 pm, Thursday-Thursday. Closed during national holidays. After Hours: We encourage urgent issues to be directed to your oncology or hemat ology team on-call. The Cancer Center number is [phone]. Refills 1. Only can be managed during business hours. 2. For controlled substances, like pain medications: Please call the [facility] business hours 8a.m. - 4:30 pm , Thursday - Thursday. You MUST request at least 3 business days before you need to cone picker your prescription. Extra time is often needed for insurance approval. 3. For other medications routinely filled by palliative care: Ask your pharmacy to request a refill, or contact the nurse via [employer] or phone call Other For scheduling (cancel or reschedule): Please call the clinic. If cancelling or rescheduling, please give at least 1-day notice, which helps us schedule other p atients urgently. OpenNotes: You will have access to the physician's notes. We support patient acc ess to their medical information. If you have any questions or concerns about wh at is documented, please reach out to our team. COVID-19 Vaccine Info: For the [facility] click here - h [email or web address]/vaccine OPIOID (NARCOTIC) PAIN MEDICATION SAFETY We care about your comfort, and believe you need opioid medications at this time to treat your pain. An opioid is a strong pain medication. It is only available by prescription for moderate to severe pain. Usually these medications are used for only a short time to treat pain, but sometimes will be prescribed for longe r. Talk with your doctor or nurse about how long they expect you to need this me dication. When used the right way, opioids are safe and effective medications to treat you r pain, even when used for a long time. Yet, when used in the wrong way, opioids can be dangerous for you or others. Opioids do not work for everyone. Most nba ents do not get full relief of their pain from opioid medication; full relief of your pain may not be possible. For your safety, we ask you to follow these instructions: *Only take your opioid medication as prescribed. If your pain is not controlled with the prescribed dose, or the medication is not lasting long enough, call you r doctor. *Do not break or crush your opioid medication unless your doctor or pharmacist s ays you can. With certain medications, this can be dangerous, and may cause deat h. *Never share your medications with others, even if they appear to have a good re ason. Never take someone else's pain medication-this is dangerous, and illegal ( a crime). Overdoses and deaths have occurred. *Keep your opioid medications safe, as you would with solano, in a lock box or sim ilar container. *Make sure your opioids are going to be secure, especially if you are around chi ldren or teens. *Talk with your doctor or pharmacist before you take other medications. *Avoid driving, operating machinery, or drinking alcohol while taking opioid ewelina n medication-this may be unsafe. *When you no longer need your opioid medication for pain please dispose of the m edication appropriately. The retail pharmacy has a disposal receptacle, and it is best to dispose of them rather than keep them for future use. documented in this encounter Ordered Prescriptions Start Date End Date Prescription Sig Dispensed Refills 05/15/2021 buPROPion HCL SR Take one 60 tablet 2 (WELLBUTRIN SR) 150 mg tablet by tablet mouth twice daily. Take once a day for 1 week. Then increase to twice daily. documented in this encounter Progress Notes * Candy Templeton MD - 05/15/2021 2:30 PM CDT PALLIATIVE CARE OUTPATIENT VISIT Date of Service: 05/15/2021 Referring Clinician: No ref. provider found Preferred Name: Monse PCP: Steph Sánchez Visit type: In-person visit ASSESSMENT Monse Encinas is a 65 y.o. female who presents for a telehealth palliative care visit today. We discussed that some women experience a trauma reaction from a hysterectomy or even those who have had treatments. This can lead to issues in her sexual life. I recommended she start Wellbutrin to help with her anxiety. I explained it does not cause any stomach issues and it does not have sexual side effects. We will begin Wellbutrin at a low dose and I recommend she start now because it can take 2 to 4 weeks before it begins to have an effect. She was instructed to call with any concerns or issues she may be experiencing. I recommend she speak with Dr. Steiner if she feels like boundaries are being cr ossed with planning for vaginal brachytherapy. I am sure he will be open to disc ussing and she can decide if she doesn not want vaginal brachytherapy. PLAN PAIN: Intensity: Pain: 0; SAFETY: No data recorded CURRENT REGIMEN: PLAN: Ibuprofen and tylenol prn The patient will follow up in 6 weeks. DYSPNEA: Intensity: Shortness of Breath: 0; CURRENT REGIMEN: PLAN: observe FATIGUE/DECONDITIONING: Intensity: Tiredness / Fatigue: 1; CURRENT REGIMEN: PLAN: observe INSOMNIA: Intensity: Insomnia: 1; CURRENT REGIMEN: PLAN: observe NAUSEA/ANOREXIA: Intensity: Nausea: 2, Lack of Appetite: 4; CURRENT REGIMEN: PLAN:manage constipation BOWEL FUNCTION: Intensity: Constipation: 0; CURRENT REGIMEN: PLAN: 17 g of MiraLax, as needed. MOOD: Intensity: Depression: 5; Anxiety: 9; CURRENT REGIMEN: PLAN: 150 mg of Wellbutrin once daily for 1 week -if tolerated then increase t o 150 mg of Wellbutrin twice a day. PRACTICAL ISSUES: They live remotely and are feeling difficulty with communicati on with medical team. PLAN: Plan for clear communication and support. SERIOUS ILLNESS CONVERSATIONS: (include dates; if left blank not yet addressed) Illness understanding: Desire for information: Prognostic discussion: Goals: Worries: Strength comes from: Critical abilities you would not imagine being able to live without: Trade offs you would be willing or not willing to make for the possibility of m ore time: Family knowledge of the above: ADVANCE CARE PLANNING: Goals: Continue chemotherapy Code Status: Level of Intervention: Full Treatment DPOA: Living Will: TPOPP: Return to clinic: Follow up in 6 weeks. Subjective SUBJECTIVE Reason for Visit: Palliative Care Monse Encinas is a 65 y.o. female who presents for an initial visit in our [facility] facility today. She is accompanied today by her , Ricardo. She was referred to me by her generating station mechanic who wanted her to have another opinion on . She has endometrial cancer and is now undergoing chemotherapy RT sandwich. She just started radiation. She has a history of a meningioma. She has been taking Benadryl to help with insomnia and noticed an improvement. S he was taking Tylenol PM but discontinued due to diarrhea. About 2 week ago, fortinoamaris ore her first radiation treatment she experienced diarrhea. She spoke with Dr. Niki carver and told him she was experiencing diarrhea with mucus around it. Dr. Farzaneh heredia had her submit a bowel sample on 05/14/2021. She has not heard back on the res ults. She has occasional episodes of diarrhea and Imodium helps. She took Imodiu m yesterday and had a small loose stool today. She states she has been nauseated but Dr. Steiner thought she had anxiety. Occasi onally, she takes extra strength Tums for symptom relief. She rates her nausea a s a 2/10. The nausea is worse around treatments and after radiation. She feels n ervous and anxious during these times. The nausea has made it more difficult for her to eat. Her , Ricardo, said she has depression. She only gets in the bed to sleep. Sh e states she has asked Dr. Steiner's office to stop telling her the symptoms or s nay effects to expect with the internal radiation but she has been repeatedly to ld. Since being told, the symptoms are all she can think about. She would rather have the symptoms instead of waiting for it to happen. She notes it is frighten ing to not know what the treatments are doing to her body. She does not feel the same since treatments started and does not think she will ever be the same. She can hardly look at herself. She feels emotional and thinks it makes her weak. S robbi and Ricardo used to have a great sexual relationship and it has changed since she was diagnosed. Ricardo notes she has a strong Jehovah'S Witness ruslan and has many people p raying for her. Some days she is really hard on herself. When they came for the clinical trial she had a CT scan with contrast and it was a disaster. There is a nxiety about some medical staff performing their jobs correctly. Her vision, especially in her left eye, has worsened. This is where the brain tu mor was located. She occasionally will hear a "buzzing noise" in her ears that h as started since she began treatments. Her sense of smell has decreased. She can taste food if it is salty but can not taste a piece of bread with butter on it. Out of her five senses she has had a decrease in 4 of the senses. [place] Symptom Assessment Scale (ESAS-r-CS) 05/16/2021 Symptom / Score Pain: 0 Shortness of Breath: 0 Tiredness / Fatigue: 1 Drowsiness / Sleepy: 0 Insomnia: 1 Nausea: 2 Lack of Appetite: 4 Constipation: 0 Depression: 5 Anxiety: 9 Wellbein Completed by: Patient 0 = Best Possible 10 = Worst Possible Functional Status ECOG: ECOG Performance Status: 1 - Restricted in physically strenuous activity b ut ambulatory and able to carry out work of a light or sedentary nature, e.g. li ght house work, office work. PPS: Palliative Performance Scale (PPS): 80 Opioid Risk Tool (ORT) Reference: Alec SHEPHERD. Predicting aberrant behaviors in opioid-treated patients: Preliminary validation of the opioid risk tool. Pain Medicine. 2005;6(6):432-44 2. Review of Systems Constitutional: Positive for activity change, appetite change, fatigue and unexp ected weight change. HENT: Negative. Eyes: Negative. Respiratory: Negative. Cardiovascular: Negative. Gastrointestinal: Positive for constipation. Endocrine: Negative. Genitourinary: Negative. Musculoskeletal: Positive for arthralgias and myalgias. Skin: Negative. Allergic/Immunologic: Negative. Neurological: Negative. Hematological: Negative. Psychiatric/Behavioral: The patient is nervous/anxious. ONCOLOGY HISTORY Cancer Staging No matching staging information was found for the patient. Medical History: Diagnosis Date Brain tumor (benign) (HCC) Cystoid macular edema History of thyroid disease Radiation retinopathy Surgical History: Procedure Laterality Date CRANIOTOMY LYMPH NODE BIOPSY WI LAPAROSCOPY TOTAL HYSTERECTOMY UTERUS >250 GM Family History Problem Relation Age of Onset Migraines Mother Cancer-Breast Maternal Aunt Cancer-Ovarian Paternal Aunt Social History Socioeconomic History Marital status: Spouse [...] file Social History Narrative Not on file OBJECTIVE Vitals: 05/15/21 1422 PainSc: Zero There is no height or weight on file to calculate BMI. EXAM General: no acute distress, sitting in clinic chair, verbal, no grimace, Eyes: eyelids open, pupils round, extraocular movements intact, no discharge, no icterus, ENT/Throat: slight dry lips, normal hearing, Heart: no edema, no defibrillator, no pacemaker Lungs: no secretions, no acc muscle use, no intercostal retractions, no apnea, Abdomen: non distended, Musculoskeletal: moves all extremities with normal range of motion, no contractu res, Neuro: no seizures, no myoclonus, Psych: interactive, normal memory and judgement, oriented to time, person and pl estela, normal mood and affect, Skin: no visible rashes, no ulcers, no subcutaneous nodules, MEDICATIONS acetaminophen (TYLENOL EXTRA STRENGTH) 500 mg tablet Take 500 mg by mouth ev eduardo 6 hours as needed for Pain. buPROPion HCL SR (WELLBUTRIN SR) 150 mg tablet Take one tablet by mouth twic e daily. Take once a day for 1 week. Then increase to twice daily. Cholecalciferol (Vitamin D3) 50 mcg (2,000 unit) cap Take 2,000 Units by rica th daily. 2000 IU Cranberry 400 mg cap Take by mouth. dexAMETHasone (DECADRON) 4 mg tablet Take two tablets by mouth daily. On Day s 2-4 of each cycle. (Patient taking differently: Take 2 mg by mouth daily. On D ays 2-4 of each cycle. Taking 1/2 tablet for 3 days after treatment.) diphenhydrAMINE (BENADRYL) 25 mg capsule Take 25 mg by mouth nightly as need ed (allergies, sleep). esomeprazole DR (NEXIUM) 20 mg capsule Take 20 mg by mouth daily. levothyroxine (SYNTHROID) 150 mcg tablet Take 150 mcg by mouth daily 30 patel jeyson before breakfast. Uses brand name Levothyroxine (not a generic) lidocaine/prilocaine (EMLA) 2.5/2.5 % topical cream Apply topically to affe cted area as Needed. loperamide HCl (IMODIUM PO) Take 2 mg by mouth as Needed. ondansetron (ZOFRAN) 8 mg tablet Take one tablet by mouth every 8 hours as n eeded (nausea and vomiting). polyethylene glycol 3350 (MIRALAX) 17 g packet Take one packet by mouth page y. (Patient taking differently: Take 17 g by mouth as Needed.) prochlorperazine maleate (COMPAZINE) 10 mg tablet Take one tablet by mouth e very 6 hours as needed for Nausea or Vomiting. First choice for nausea for the f irst 3 days after chemotherapy senna (SENNA-GEN) 8.6 mg tablet Take one tablet to two tablets by mouth twic e daily. RESULTS REVIEW Imaging and labs reviewed CBC Lab Results Component Value Date/Time WBC 4.2 (L) 04/18/2021 08:09 AM HGB 11.3 (L) 04/18/2021 08:09 AM PLTCT 163 04/18/2021 08:09 AM Lab Results Component Value Date/Time NEUT 61 04/18/2021 08:09 AM ANC 2.60 04/18/2021 08:09 AM Comprehensive Metabolic Profile Lab Results Component Value Date/Time NA 140 04/18/2021 08:09 AM K 3.8 04/18/2021 08:09 AM BUN 11 04/18/2021 08:09 AM CR 0.87 04/18/2021 08:09 AM GLU 102 (H) 04/18/2021 08:09 AM Lab Results Component Value Date/Time CA 8.7 04/18/2021 08:09 AM ALBUMIN 3.8 04/18/2021 08:09 AM TOTPROT 7.1 04/18/2021 08:09 AM ALKPHOS 95 04/18/2021 08:09 AM AST 15 04/18/2021 08:09 AM ALT 16 04/18/2021 08:09 AM TOTBILI 0.2 (L) 04/18/2021 08:09 AM GFR >60 04/18/2021 08:09 AM GFRAA >60 04/18/2021 08:09 AM ADMINISTRATIVE Time for visit: 230-300p with time spent on the following: chart review, documen tation, symptom assessment, palliative care education, symptom management educat ion, pharmacy education, caregiver support and patient support This is a shared note. The patient and caregiver may read this note. I support peyton fishman's rights to access their medical information in an open and transparent m francisca. We are partners together to improve your health. If you are a patient or caregiver with concerns please reach out to us by one of the following ways: 1) send a [employer] message to myself and our team 2) call us during business hours at [phone] 3) talk to us at your next visit. For help understanding abbreviations in this note, please see this list made judy ecially for our palliative care clinic notes: http://bit.ly/OpenNoteAbbreviation s 2020 NEW Time Code 15 46896 30 24432 45 66435 60 96604 90 79341 & 15109 105+ 61582 & 21681 2020 RETURN Time Code 10 82427 20 74465 30 27669 40 40017 70 69227 & 66538 85+ 43992 & 54903 x2 ATTESTATION: This visit was documented by SHARLA Hollis via audio recorded by Candy Templeton MD, on May 15, 2021 7:55 PM documented in this encounter Plan of Treatment Not on filedocumented as of this encounter Visit Diagnoses Diagnosis Drug-induced constipation - Primary Other constipation Endometrial adenocarcinoma (HCC) Malignant neoplasm of corpus uteri, exc ept isthmus Neuropathy Mononeuritis of unspecified site Adjustment reaction with anxiety and de pression Adjustment disorder with mixed anxiety and depressed mood documented in this encounter Historical Medications * This list may reflect changes made after this encounter. Start Date End Date Medication Sig Dispensed Refills loperamide HCl (IMODIUM Take 2 mg by 0 PO) mouth as Needed. added in this encounter Additional Health Concerns Assessment Noted Time A fall risk assessment has been completed for the pat ient 05/15/2021 2:22 PM CDT documented as of this encounter
--- OUTSIDE RECORDS SUMMARY | 2021-06-17 09:55 | XMS REPORT | Encounter Summary ---
Author Author [facility] Organization [facility] Address Unknown Phone Unavailable Care Team Providers Care Antique Furniture Reproducer Name Role Phone Steph Sánchez MD PCP Encounter Details Care Team Description Date Type Department Tyson Steiner MD [address] [facility] Lvl [address] [place] [id number] Luis A Steiner MD [address] [facility] [place], [place] [phone] 05/14/2021 Hospital Laboratory: Main Ca mpus, Encounter Medical Pavilion [address] [place] [address] Social History Date Tobacco Use Types Packs/Day [...] every 6 hours as needed for Pain. 12/26/2020 Cholecalciferol (Vitamin Take 2,000 0 D3) [...] topically to cream affected area as Needed. 02/11/2021 ondansetron (ZOFRAN) 8 mg Take one 30 tablet 3 tabletIndications: tablet by Endometrial cancer ([facility]) mouth every 8 hours as needed (nausea and vomiting). 03/27/2021 polyethylene glycol 3350 Take one 12 each 3 (MIRALAX) 17 g packet packet by mouth daily. 02/11/2021 prochlorperazine maleate Take one 30 tablet 3 (COMPAZINE) 10 mg tablet by tabletIndications: mouth every 6 Endometrial cancer ([facility]) hours as needed for Nausea or [...] encounter Visit Diagnoses Diagnosis Endometrial adenocarcinoma (HCC) Malignant neoplasm of corpus [...]
--- OUTSIDE RECORDS SUMMARY | 2021-06-17 09:55 | XMS REPORT | Encounter Summary ---
Author Author [facility] Organization [facility] Address Unknown Phone Unavailable Care Team Providers Care Rotary Furnace Operator Name Role Phone Steph Sánchez MD PCP Encounter Details Care Team Description Date Type Department Interface, Aria Treatment Data 05/22/2021 Orders Only Radiation Oncology: [facility] [address] [facility] [place] [phone] Social History Date Tobacco Use Types Packs/Day [...] Associated Diag nosis RAD ONC TREATMENT Routine 05/22/2021 INFORMATION 11:41 AM CDT documented in this encounter Results * RAD ONC TREATMENT INFORMATION (05/22/2021 11:41 [...]
--- OUTSIDE RECORDS SUMMARY | 2021-06-17 09:55 | XMS REPORT | Encounter Summary ---
Author Author [facility] Organization [facility] Address Unknown Phone Unavailable Care Team Providers Care Regional Intermodal Truck Driver Name Role Phone Steph Sánchez MD PCP Encounter Details Care Team Description Date Type Department Interface, Aria Treatment Data 05/17/2021 Orders Only Radiation Oncology: [facility] [address] [facility] [place] [phone] Social History Date Tobacco Use Types Packs/Day [...] Associated Diag nosis RAD ONC TREATMENT Routine 05/17/2021 INFORMATION 11:19 AM CDT documented in this encounter Results * RAD ONC TREATMENT INFORMATION (05/17/2021 11:19 [...]
--- OUTSIDE RECORDS SUMMARY | 2021-06-17 09:55 | XMS REPORT | Encounter Summary ---
Author Author [facility] Organization [facility] Address Unknown Phone Unavailable Care Team Providers Care Baffle Mounter Name Role Phone Steph Sánchez MD PCP Encounter Details Care Team Description Date Type Department 05/09/2021 Travel Social History Date Tobacco Use Types [...]
--- OUTSIDE RECORDS SUMMARY | 2021-06-17 09:55 | XMS REPORT | Encounter Summary ---
Author Author [facility] Organization [facility] Address Unknown Phone Unavailable Care Team Providers Care Channel Account Manager Name Role Phone Steph Sánchez MD PCP Reason for Visit * Reason Onset Date Comments Palliative Care 05/17/2021 Encounter Details Care Team Description Date Type Department Candy Templeton MD [address] [facility] [place] [address] [phone] Palliative Care 05/17/2021 Telephone Palliative Care: [facility] [address] [facility] [place] [address] Social History Date Tobacco Use Types Packs/Day [...] Telephone Encounter - Elyse Owens, RN - 05/17/2021 9:53 AM CDT PCRN received message from pts requesting call back Follow up phone ca ll placed. To pt's number. PCRN left message requesting return call.PCRN contact number given if any questions or concerns arise. documented in this encounter Plan of Treatment Not on filedocumented as of this encounter Visit Diagnoses Not on filedocumented in this encounter Additional Health Concerns Assessment Noted Time A fall risk assessment has been completed for the pat ient 05/16/2021 11:41 AM CDT documented as of this encounter
--- OUTSIDE RECORDS SUMMARY | 2021-06-17 09:56 | XMS REPORT | Encounter Summary ---
Author Author [facility] Organization [facility] Address Unknown Phone Unavailable Care Team Providers Care Teacher Aide Name Role Phone Steph Sánchez MD PCP Encounter Details Care Team Description Date Type Department 04/30/2021 Travel Social History Date Tobacco Use Types [...]
--- OUTSIDE RECORDS SUMMARY | 2021-06-17 09:56 | XMS REPORT | Encounter Summary ---
Author Author [facility] Organization [facility] Address Unknown Phone Unavailable Care Team Providers Care Open Cut Examiner Name Role Phone Steph Sánchez MD PCP Reason for Visit * Reason Comments Labs Only Encounter Details Care Team Description Date Type Department Theo Mclaughlin MD [address] [place] [facility] [place] [address] [phone] 04/18/2021 Hospital Laboratory: [address], [address] [place] [address] Social History Date Tobacco Use Types Packs/Day Years Used Never Smoker Smokeless Tobacco: Never Used Sex Assigned at Date Recorded Female 02/08/2021 1:20 PM CDT Date Recorded COVID-19 Exposure Response 04/18/2021 7:49 AM CDT In the last month, have [...] 4 mg tabletIndications: tablets by Endometrial cancer ([facility]) mouth daily. On Days 2-4 of each [...] tablet 3 tabletIndications: tablet by Endometrial cancer ([facility]) mouth every 8 hours as needed (nausea and vomiting). 03/27/2021 polyethylene glycol 3350 Take one 12 each 3 (MIRALAX) 17 g packet packet by mouth daily. 02/11/2021 prochlorperazine maleate Take one 30 tablet 3 (COMPAZINE) 10 mg tablet by tabletIndications: mouth every 6 Endometrial cancer (HCC) [...] Procedure Name Priority Date/Time Associated Diag nosis CBC W/ AUTOMATED DIFF Routine 04/18/2021 Endom etrial cancer (HCC) 8:09 AM CDT HC COMPREHENSIVE Routine 04/18/2021 Endometrial c ancer (HCC) METABOLIC PANEL 8:09 AM CDT documented in this encounter Results * COMPREHENSIVE METABOLIC PANEL (04/18/2021 8:09 AM CDT) Sodium 140 137 - 147 MMOL/L [facility] Potassium 3.8 3.5 - 5.1 MMOL/L [facility] Chloride 106 98 - 110 MMOL/L [facility] Glucose 102 (H) 70 - 100 MG/DL [facility] Blood Urea 11 7 - 25 MG/DL [facility] Nitrogen Creatinine 0.87 0.4 - 1.00 MG/DL [facility] Calcium 8.7 8.5 - 10.6 MG/DL [facility] Total Protein 7.1 6.0 - 8.0 G/DL [facility] Total Bilirubin 0.2 (L) 0.3 - 1.2 MG/DL [facility] Albumin 3.8 3.5 - 5.0 G/DL [facility] Alk Phosphatase 95 25 - 110 U/L [facility] AST (SGOT) 15 7 - 40 U/L [facility] CO2 25 21 - 30 MMOL/L [facility] ALT (SGPT) 16 7 - 56 U/L [facility] Anion Gap 9 3 - 12 [facility] eGFR Non >60 >60 mL/min [facility] Comment: [place] The eGFR is not validated f or use in drug dosing adjustments. Continue to use estimated creatinine clearance per dosing reference text. Please contact the Clinical Pharmacist for questions. eGFR >60 >60 mL/min [facility] [place] Comment: The eGFR is not validated for use in drug dosing adjustments. Continue to use estimated creatinine clearance per dosing reference text. Please contact the Clinical Pharmacist for questions. Specimen Blood Performing Organization Address City/State/ZIP Code P shahnaz Number [facility] [address] [place] [address] * CBC AND DIFF (04/18/2021 8:09 AM CDT) White Blood 4.2 (L) 4.5 - 11.0 K/UL [facility] Cells RBC 3.86 (L) 4.0 - 5.0 M/UL [facility] Hemoglobin 11.3 (L) 12.0 - 15.0 GM/DL [facility] Hematocrit 33.5 (L) 36 - 45 % [facility] MCV 86.6 80 - 100 FL [facility] MCH 29.3 26 - 34 PG [facility] MCHC 33.8 32.0 - 36.0 G/DL [facility] RDW 16.1 (H) 11 - 15 % [facility] Platelet Count 163 150 - 400 K/UL [facility] MPV 7.2 7 - 11 FL [facility] Neutrophils 61 41 - 77 % [facility] Lymphocytes 25 24 - 44 % [facility] Monocytes 11 4 - 12 % [facility] Eosinophils 2 0 - 5 % [facility] Basophils 1 0 - 2 % [facility] Absolute 2.60 1.8 - 7.0 K/UL [facility] Neutrophil Count Absolute Lymph 1.10 1.0 - 4.8 K/UL [facility] Count Absolute 0.40 0 - 0.80 K/UL [facility] Monocyte Count Absolute 0.10 0 - 0.45 K/UL [facility] Eosinophil Count Absolute 0.00 0 - 0.20 K/UL [facility] Basophil Count Specimen Blood Performing Organization Address City/State/ZIP Code P shahnaz Number [facility] [address] [place] [address] documented in this encounter Visit Diagnoses Diagnosis Endometrial cancer (HCC) - Primary Malignant neoplasm of corpus uteri, exc ept isthmus Endometrial adenocarcinoma (HCC) Malignant neoplasm of corpus uteri, exc ept isthmus documented in this encounter Orders First Ordered Date Lab Orders Without Results Count Last Ordere d Date CBC 1 04/18/2021 COMPREHENSIVE METABOLIC PANEL 1 04/18/20 21 documented in this encounter Additional Health Concerns Assessment Noted Time A fall risk assessment has been completed for the pat ient 04/18/2021 8:26 AM CDT documented as of this encounter
--- OUTSIDE RECORDS SUMMARY | 2021-06-17 09:56 | XMS REPORT | Encounter Summary ---
Author Author [facility] Organization [facility] Address Unknown Phone Unavailable Care Team Providers Care Patient Experience Coordinator Name Role Phone Steph Sánchez MD PCP Reason for Referral * Radiology Services (Routine) Referred By Contact Referred To Contact Status Reason Specialty Diagnoses / Procedures Luis A Steiner MD [address] [place] [address] [place] [address], [address] [address] Authorized Radiology Diagnoses Endometrial cancer (HCC) P rocedures CT CHEST W CONTRAST CT CHEST WO/W CONTRAST Electronically signed by Luis A Steiner MD at * Radiology Services (Routine) Referred By Contact Referred To Contact Status Reason Specialty Diagnoses / Procedures Luis A Steiner MD [address] [facility] [place] [address] [facility] [address], [address] [place] [address] Authorized Radiology Diagnoses Endometrial cancer (HCC) P rocedures CT ABD/PELV W CONTRAST Electronically signed by Luis A Steiner MD at Reason for Visit * Reason Comments Procedure Encounter Details Care Team Description Date Type Department Luis A Steiner MD [address] [facility] [place] [address] [phone] Endometrial cancer (HCC) (Primary Dx) 04/30/2021 Office Visit Radiation Oncology: Helen Segura [address] [address] Social History Date Tobacco Use Types [...] Signs Reading Time Taken Comments Vital Sign 149/91 04/30/2021 9:54 AM CDT Blood Pressure 79 04/30/2021 9:54 AM CDT Pulse - - Temperature - - Respiratory Rate 100% 04/30/2021 9:54 AM CDT Oxygen Saturation - - Inhaled Oxygen Concentration 82.1 kg (181 lb) 04/30/2021 9:54 AM CDT Weight - - Height 33.11 04/18/2021 8:25 AM CDT Body Mass Index documented in [...] Notes * Luis A Steiner MD - 04/30/2021 10:00 AM CDT Simulation Procedure Note Date: 04/30/2021 Monse Encinas is a 65 y.o. female. The encounter diagnosis was Endometrial cancer (HCC). Anatomical Site: Pelvis On 04/30/2021, Ms. Encinas underwent IMRT (INTENSITY MODULATED RADIATION THERAPY) simulation procedure on the CT Simulator. Informed consent has been obtained for the radiation oncology treatment. The pelvic region was scanned in order to establish treatment hernandez for radiati on therapy and is medically necessary to establish the treatment hernandez to the p blaine. . During the simulation process Monse Encinas was setup in theSupine position and a customized vacuum bag immobilization device was used. . Axial CT images were acquired through the region of interest in order to establi sh the appropriate isocenter. These images will be transferred to the treatment planning system in order to identify the dose volumes for the targeted treatment area and for delineation of the normal critical structures, including the bowel and bladder which are in close proximity of the targeted area of treatment. Luis A Steiner MD documented in this encounter Plan of Treatment Not on filedocumented as of this encounter Results * CT CHEST W CONTRAST (04/30/2021 1:00 [...] shahnaz Number [facility] RESULTS * CT ABD/PELV W CONTRAST (04/30/2021 1:00 [...] ring 2.0 x 2.7 cm in image 73 versus 2.0 x 2.6 cm previously. This [...] Code P shahnaz Number [facility] RESULTS documented in this encounter Visit Diagnoses Diagnosis Endometrial cancer (HCC) - Primary Malignant neoplasm of corpus uteri, exc ept isthmus documented in this encounter Additional Health Concerns Assessment Noted Time A fall risk assessment has been completed for the pat ient 04/30/2021 9:54 AM CDT documented as of this encounter
--- OUTSIDE RECORDS SUMMARY | 2021-06-17 09:56 | XMS REPORT | Encounter Summary ---
Author Author [facility] Organization [facility] Address Unknown Phone Unavailable Care Team Providers Care Beauty Shop Manager Name Role Phone Steph Sánchez MD PCP Encounter Details Care Team Description Date Type Department 04/18/2021 Travel Social History Date Tobacco Use Types [...]
--- OUTSIDE RECORDS SUMMARY | 2021-06-17 09:56 | XMS REPORT | Encounter Summary ---
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 [address] Social History Date Tobacco Use Types Packs/Day [...] Signs Reading Time Taken Comments Vital Sign 133/81 04/18/2021 8:25 AM CDT Blood Pressure 90 04/18/2021 8:25 AM CDT Pulse 36.7 C (98 F) 04/18/2021 8:25 AM CDT Temperature 16 04/18/2021 8:25 AM CDT Respiratory Rate 98% 04/18/2021 8:25 AM CDT Oxygen Saturation - - Inhaled Oxygen Concentration 80.6 kg (177 lb 12.8 oz) 04/18/2021 8:25 AM CDT Weight 157.5 cm (5' 2") 04/18/2021 8:25 AM CDT Height 32.52 04/18/2021 8:25 AM CDT Body Mass Index [...] Progress Notes * Theo Mclaughlin MD - 04/18/2021 8:40 AM CDT Subjective GYNECOLOGIC ONCOLOGY EVALUATION Name:Monse Encinas Date: 04/18/21 Referring Physician: Referring Physician: Self Contact Name & Number: [phone] Surgeon: Dr. Claire Zhu Medical Oncologist: Dr. Claire Zhu PCP: Dr. Steph Sánchez Other: EDGER OPERATOR: Dr. Tonia Ta Primary Care Physician: Steph Sánchez CC: Endometriod carcinoma Stage IIIC1. History of Present Illness: Monse Encinas is a 65 y.o. 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 Interval History: Patient referred to EDGER OPERATOR [facility]C on 12/26/20 for ovarian cyst, PMB [...] severe constipation [facility] She has previously stopped her daily [...] last cycle. She did have to take emily lax and senna due to concern for [...] She denies vaginal bleeding and abdominal pain. Past Medical History: Medical History: Diagnosis Date Brain tumor (benign) (HCC) Cystoid macular edema History of thyroid disease Radiation retinopathy Patient Active Problem List Diagnosis Date Noted Drug-induced constipation 03/28/2021 Neuropathy 03/28/2021 Brain tumor (benign) (HCC) 02/08/2021 Thyroid disease 02/08/2021 Endometrial cancer (HCC) 02/07/2021 Endometrial adenocarcinoma (HCC) 01/07/2021 Post-radiation retinopathy 05/20/2016 Past Surgical History: Surgical History: Procedure Laterality Date CRANIOTOMY LYMPH NODE BIOPSY CT LAPAROSCOPY TOTAL HYSTERECTOMY UTERUS >250 GM Medications: Current Outpatient Medications: acetaminophen (TYLENOL EXTRA STRENGTH) 500 mg tablet, Take 500 mg by mouth every 6 hours as needed for Pain., Disp: , Rfl: Cholecalciferol (Vitamin D3) 50 mcg (2,000 unit) cap, Take 2,000 Units by m outh daily. 2000 IU, Disp: , Rfl: Cranberry 400 mg cap, Take by mouth., Disp: , Rfl: dexAMETHasone (DECADRON) 4 mg tablet, Take two tablets by mouth daily. On D ays 2-4 of each cycle. (Patient taking differently: Take 2 mg by mouth daily. On Days 2-4 of each cycle.), Disp: 36 tablet, Rfl: 0 diphenhydrAMINE (BENADRYL) 25 mg capsule, Take 25 mg by mouth nightly as ne eded (allergies, sleep)., Disp: , Rfl: esomeprazole DR (NEXIUM) 20 mg capsule, Take 20 mg by mouth at bedtime page stuart., Disp: , Rfl: levothyroxine (SYNTHROID) 150 mcg tablet, Take 150 mcg by mouth daily 30 mi nutes before breakfast. Uses brand name Levothyroxine (not a generic), Disp: , R fl: lidocaine/prilocaine (EMLA) 2.5/2.5 % topical cream, Apply topically to af fected area as Needed., Disp: 30 g, Rfl: 1 ondansetron (ZOFRAN) 8 mg tablet, Take one tablet by mouth every 8 hours as needed (nausea and vomiting)., Disp: 30 tablet, Rfl: 3 polyethylene glycol 3350 (MIRALAX) 17 g packet, Take one packet by mouth da yadira., Disp: 12 each, Rfl: 3 prochlorperazine maleate [...] SKIN: negative ENDOCRINE: negative HEMATOLOGIC: negative ECOG 0 Physical Exam: BP 133/81 (BP Source: Arm, Left Upper, Patient Position: Sitting) | Pulse 90 | Temp 36.7 C (98 F) (Oral) | Resp 16 | Ht 157.5 cm (62") | Wt 80.6 kg (177 lb 12.8 oz) | SpO2 98% | BMI 32.52 kg/m GENERAL APPEARANCE: Appears healthy. Alert; in [...] rashes or lesions. ASSESSMENT/PLAN: ICD-9-CM ICD-10-CM 1. Neuropathy 355.9 G62.9 2. Drug-induced constipation 564.09 K59.03 E980.5 3. Thyroid disease 246.9 E07.9 4. Post-radiation retinopathy, sequela 909.4 T66.XXXS H35.89 5. Endometrial adenocarcinoma (HCC) 182.0 C54.1 AMB REFERRAL TO RADIATION ONCOL OGY 6. 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 Endometrial cancer (HCC) 182.0 C54.1 AMB REFERRAL TO RADIATION ONCOLOGY Monse Encinas is a 65 y.o. female with at least stage IIIC1 FIGO grade 2 end ometrioid adenocarcinoma with LVI. She presents for C3 of carbo/taxol. Labs are adequate for therapy today. We discussed the plan for sandwich therapy with radiation therapy starting 4-6 w eeks after this 3rd cycle of chemotherapy. She will see Dr. Steienr and he will s et up the dates for her radiation therapy. We will see her back in 2 months, at that time she will likely be finishing up her radiation therapy and we will crea te a plan for restarting her chemotherapy. We discussed moving forward we would recommend continuing her bowel regimen to p revent a recurrence of severe constipation and recommended a dose reduction by h jose antonio for her steroids to prevent acid reflux. She will take her nexium BID for th e next 3-4 days since the steroids worsen her acid reflex then will transition t o qHS. She expressed understanding. Plan: -proceed with C3 of carbo/taxol -RTC in 2 months for next cycle. Moses Harris MD MS-CR Gynecologic Oncology Fellow PGY-7 ATTESTATION I personally interviewed and examined the patient. I have reviewed the history, physical, impression and plan outlined by the fellow. The patient presents with (HPI) stage IIIc FIGO grade 2 endometrial adenocarcino ma with LVI, receiving adjuvant therapy. Plan is to do as sandwich therapy. On examination there is unremarkable, My impression is advanced stage endometrial cancer status post hysterectomy., My plan is to proceed with day 1 of cycle [address] Steiner for r adiation therapy. Patient will follow up with me in 2 months see where she is i n her radiation therapy and determine when to restart her adjuvant chemotherapy. . 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) Endometrial cancer (HCC) documented as of this encounter Visit Diagnoses Diagnosis Neuropathy - Primary Mononeuritis of unspecified site Drug-induced constipation Other constipation Thyroid disease Unspecified disorder of thyroid Post-radiation retinopathy, sequela Endometrial adenocarcinoma (HCC) Malignant neoplasm of corpus uteri, exc ept isthmus Benign neoplasm of supratentorial regio n of brain (HCC) Benign neoplasm of brain Endometrial cancer (HCC) Malignant neoplasm of corpus uteri, exc ept isthmus documented in this encounter Additional Health Concerns Assessment Noted Time A fall risk assessment has been completed for the pat ient 04/18/2021 8:26 AM CDT documented as of this encounter
--- OUTSIDE RECORDS SUMMARY | 2021-06-17 09:56 | XMS REPORT | Encounter Summary ---
Author Author [facility] Organization [facility] Address Unknown Phone Unavailable Care Team Providers Care Final Inspector And Tester Name Role Phone Steph Sánchez MD PCP Reason for Referral * Consult, Test & Treat (Routine) Referred By Contact Referred To Contact Status Reason Specialty Diagnoses / Procedures Luis A Steiner MD [address] [facility] [place] [address] Cc Radiation Therapy [address] [place] [address]. [place] [address] Authorized Specialty Services Radiation Diagnoses Required Therapy Endometrial adenocarcinoma (HCC) Answer Question No Laterality Laterality Pelvis Specific Area Treatment Site 25 Number of Treatments 45 Gy Total Dose 04/30/21 Requested Simulation Date Photon Treatment Modality IMRT TX Technique No Special Treatment Required Supine, Vacuum Bag Immobilization N/A Has a test been ordered? No Concurrent Chemo N/A - Full and empty bladder scans. Vaginal markers. Special Instructions? Comments RADIATION SIMULATION ORDER DATE: 04/23/2021 Identification: Monse Encinas is a 65 y.o. year old female with No diagnosis found.. Lab Results Component Value Date/Time BUN 11 [...] Take 20 mg by mouth at bedtime daily., Disp: , Rfl: levothyroxine (SYNTHROID) 150 [...] g packet, Take one packet by mouth daily., Disp: 12 each, Rfl: 3 prochlorperazine maleate [...] signed by Luis A Steiner MD at Encounter Details Care Team Description Date Type Department Luis A Steiner MD [address] [facility] [place] [address] Endometrial adenocarcinoma (HCC) (Primar y Dx) 04/23/2021 Orders Only Radiation Oncology: [facility] [place] [address] [facility] [place] [address] Social History Date Tobacco Use [...] as of this encounter Plan of Treatment Order Schedule Name Type Priority Associated Diag noses Ordered: 04/23/2021 RADIATION THERAPY Outpatient Routine Endometrial SIMULATION Referral adenocarcinoma (HCC ) documented as of this encounter Visit Diagnoses Diagnosis Endometrial adenocarcinoma (HCC) - Prim tori Malignant neoplasm of corpus uteri, exc ept isthmus documented in this encounter Additional Health Concerns Assessment Noted Time A fall risk assessment has been completed for the pat ient 04/18/2021 8:26 AM CDT documented as of this encounter
--- OUTSIDE RECORDS SUMMARY | 2021-06-17 09:56 | XMS REPORT | Encounter Summary ---
Author Author [facility] Organization [facility] Address Unknown Phone Unavailable Care Team Providers Care Student Services Dean Name Role Phone Steph Sánchez MD PCP Reason for Visit * Reason Comments Cancer C3D1 Carbo/taxol * Treatment (Routine) Referred By Contact Referred To Contact Status Reason Specialty Diagnoses / Procedures Theo Mclaughlin MD [address] [place] [address] [facility] [address] 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 [place] [id number] Social History Date Tobacco Use Types Packs/Day [...] 4 mg tabletIndications: tablets by Endometrial cancer ([facility]) mouth daily. On Days 2-4 of each [...] tablet 3 tabletIndications: tablet by Endometrial cancer (HCC) mouth every 8 hours [...] or Self Care documented in this encounter Progress Notes * Amanda House RN - 04/18/2021 9:45 AM CDT CHEMO NOTE Verified chemo consent signed and in chart. Verified initiate chemo order in O2 Blood return positive via: Port (Single) BSA and dose double checked (agree with orders as written) with: yes See MAR Labs/applicable tests checked: CBC and Comprehensive Metabolic Panel (CMP) Chemo regime: Drug/cycle/day PACLitaxeL (TAXOL) 330.75 mg in sodium chloride 0.9% (NS) 555.125 mL IVPB (non-P VC) CARBOplatin (PARAPLATIN) 532.8 mg in sodium chloride 0.9% (NS) 303.28 mL IVPB (A UC-GOG) Rate verified and armband double checkwith second RN: yes Patient education offered and stated understanding. Denies questions at this coby e. Patient to treatment alert, oriented, ambulatory. Tolerated infusions and premed s without complication. Brisk blood return from port prior to and following infu tony. Denies need for AVS. documented in this encounter Miscellaneous Notes * Addendum Note - Gurwinder Hagen - 04/18/2021 9:45 AM CDT Encounter addended by: Gurwinder Hagen on: 04/23/2021 6:50 AM Actions taken: Charge Capture section accepted documented in this encounter Plan of Treatment Not on filedocumented as of this encounter Visit Diagnoses Diagnosis Endometrial cancer (HCC) - Primary Malignant neoplasm of corpus uteri, exc ept isthmus documented in this encounter Administered Medications Action Date Dose Rate Site Medication Order MAR Action 04/18/2021 9:52 AM CDT 130 mg aprepitant emulsion (CINVANTI) 7.2 mg/mL Given injection 130 mg 130 mg, Intravenous, ONCE, 1 dose, On Joana 04/18/21 at 0948, Give IV push over 2 minutes 04/18/2021 2:21 PM CDT 532.8 mg 606.6 mL/hr CARBOplatin (PARAPLATIN) 532.8 mg in Given - New sodium chloride 0.9% (NS) 303.28 mL IVPB Bag (AUC-GOG) 532.8 mg (Target AUC = 6), Intravenous, 303.28 mL, Administer over 0.5 Hours, ONCE, 1 dose, On Joana 04/18/21 at 1347, Administer after Paclitaxel. NURSING: To be administered by Chemotherapy Competency-validated nurse. NOTE: This is a HIGH ALERT Medication. 04/18/2021 9:52 AM CDT 20 mg 300 mL/hr dexamethasone sodium phosphate Given - New (DECADRON) 20 mg in sodium chloride 0.9% Bag (NS) 50 mL IVPB 20 mg, Intravenous, 50 mL, Administer over 10 Minutes, ONCE, 1 dose, On Joana 04/18/21 at 0948 04/18/2021 9:52 AM CDT 50 mg diphenhydrAMINE (BENADRYL) capsule 50 mg Given 50 mg, Oral, ONCE, 1 dose, On Joana 1 at 0948 04/18/2021 9:52 AM CDT 20 mg famotidine (PEPCID) tablet 20 mg Given 20 mg, Oral, ONCE, 1 dose, On Joana 1 at 0948 04/18/2021 3:51 PM CDT 500 Units heparin lock flush PF syringe 500 Units Given 500 Units, Flush, ONCE, 1 dose, On Joana 04/18/21 at 1021, NOTE: This is a HIGH ALERT Medication. 04/18/2021 10:59 AM CDT 330.75 mg 185 mL/hr PACLitaxeL (TAXOL) 330.75 mg in sodium Given - New chloride 0.9% (NS) 555.125 mL IVPB Bag (non-PVC) 330.75 mg (175 mg/m2 1.89 m2 Treatment Plan Recorded BSA), Intravenous, 555.125 mL, Administer ove r 3 Hours, ONCE, 1 dose, On Joana 04/18/21 at 1047, Administer Paclitaxel prior to Carboplatin. SPECIAL TUBING REQUIRED NURSING: To be administered by Chemotherapy Competency-validated nurse . NOTE: This is a HIGH ALERT Medication. 04/18/2021 9:52 AM CDT 0.25 mg palonosetron(+) (ALOXI) injection 0.25 Given mg 0.25 mg, Intravenous, ONCE, 1 dose, On Joana 04/18/21 at 0948 04/18/2021 9:52 AM CDT 500 mL 500 mL/hr sodium chloride 0.9 % infusion Given - New 500 mL, 500 mL, Intravenous, at 500 Bag mL/hr, ONCE, 1 dose, On Joana 04/18/21 at 0948, Administer prior to chemotherapy. NOTE: Administer premedications or antiemetics concurrently with IV fluids . 04/18/2021 2:20 PM CDT 500 mL/hr sodium chloride 0.9% (NS) 500 mL with Given - New potassium chloride 10 mEq, magnesium Bag sulfate 2 g IV infusion 500 mL, Intravenous, at 500 mL/hr, ONCE , 1 dose, On Joana 04/18/21 at 1347, Administer post-hydration concurrently with Carboplatin. documented in this encounter Additional Health Concerns Assessment Noted Time A fall risk assessment has been completed for the pat ient 04/18/2021 8:26 AM CDT documented as of this encounter
[2021-06-17] MEDS ORDERED: LACTATED RINGERS 1,000 ML IV ONE ×3 (10:15→12:01)
[2021-06-17 10:28] LABS: BASOPHILS % (AUTO) 1 % (0-10); EOSINOPHILS # (AUTO) 0.3 10^3/uL (0.0-0.3); EOSINOPHILS % (AUTO) 7 % (0-10); HEMATOCRIT 34 % (35-52); HEMOGLOBIN 11.4 g/dL (11.5-16.0); LYMPHOCYTES # (AUTO) 0.3 10^3/uL (1.0-4.0); LYMPHOCYTES % (AUTO) 6 % (12-44); MEAN CORPUSCULAR HEMOGLOBIN 31 pg (25-34); MEAN CORPUSCULAR HGB CONC 33 g/dL (32-36); MEAN CORPUSCULAR VOLUME 94 fL (80-99); MEAN PLATELET VOLUME 9.1 fL (9.0-12.2); MONOCYTES # (AUTO) 0.3 10^3/uL (0.0-1.0); MONOCYTES % (AUTO) 8 % (0-12); NEUTROPHILS # (AUTO) 3.5 10^3/uL (1.8-7.8); NEUTROPHILS % (AUTO) 79 % (42-75); PLATELET COUNT 182 10^3/uL (130-400); WHITE BLOOD COUNT 4.4 10^3/uL (4.3-11.0)
--- NOTE | 2021-06-17 10:34 | ED General ---
General Stated Complaint: DIARRHEA Source of Information: Patient Exam Limitations: No Limitations History of Present Illness Date Seen by Provider: Jun 17, 2021 Time Seen by Provider: 09:59 Initial Comments Here with report of diarrhea and concerns of dehydration. Patient has history of uterine cancer status post hysterectomy with current radiation therapy to the pelvis. She has 2 more sessions of that and then starts chemotherapy. She has had diarrhea for the last 6 weeks. She has tried Imodium [id number] and now is on a new medicine that is prescription for diarrhea. That is not helping significantly. Due to persistent diarrhea and now weakness, she was instructed to come to the emergency department for evaluation for dehydration. Patient feels like she is dehydrated. She reports decreased urination and states the urine feels thick over the last 24 hours. She is urinating with normal frequency but very small amount and it does burn a little bit. Denies fever or chills. Denies nausea, vomiting, chest pain or breathing problems. She was due to go to today but felt a little bit too weak to go. Timing/Duration: Getting Worse, Other (6 weeks) Severity: Moderate Associated Systoms: No Chest Pain, No Cough, No Fever/Chills; Malaise; No Nausea/Vomiting, No Shortness of Air; Weakness Allergies and Home Medications Allergies Coded Allergies: Penicillins (Verified Allergy, Unknown, 07/28/20) Patient Home Medication List Home Medication List Reviewed: Yes Aspirin (Aspirin EC) 81 Mg Tablet., 81 MG PO DAILY, (Reported) Entered as Reported by: CARLA OTERO on 07/30/20 113 Cholecalciferol (Vitamin D3) (Vitamin D3) 25 Mcg Capsule, 25 MCG PO DAILY, (Reported) Entered as Reported by: CARLA OTERO on 07/30/20 113 Cider Vinegar (Apple Cider Vinegar) 500 Mg Tablet, 500 MG PO DAILY, (Reported) Entered as Reported by: CARLA OTERO on 07/30/20 1131 Esomeprazole Magnesium (Nexium 24Hr) 20 Mg Capsule.dr, 20 MG PO HS, (Reported) Entered as Reported by: CARLA OTERO on 07/30/20 1131 Krill/Om-3/Dha/Epa/Phospho/Ast (Krill Oil 500 mg Softgel) 1 Each Capsule, 1 EACH PO DAILY, (Reported) Entered as Reported by: CARLA OTERO on 07/30/20 1131 Levothyroxine Sodium (Synthroid) 150 Mcg Tablet, 150 MCG PO 0700, (Reported) Entered as Reported by: CARLA OTERO on 07/30/20 1131 Vancomycin HCl (Vancocin HCl) 125 Mg Capsule, 125 MG PO QID Prescribed by: TANNA COOK on 07/31/20 1111 Review of Systems Review of Systems Constitutional: see HPI EENTM: No nose congestion, No throat pain Respiratory: no symptoms reported, see HPI Cardiovascular: No chest pain, No edema Gastrointestinal: No abdominal pain; diarrhea; No melena; other (Hemorrhoid tenderness improved with sitz bath per patient.) Genitourinary: see HPI; No hematuria Musculoskeletal: No muscle pain, No muscle cramps; muscle weakness Skin: no symptoms reported All Other Systems Reviewed Negative Unless Noted: Yes Past Qxqkorv-[id number]-Iuzxxz Hx Patient Social History Tobacco Use?: No Substance use?: No Alcohol Use?: No Seasonal Allergies Seasonal Allergies: No Past Medical History Surgeries: Yes (craniotomy) Hysterectomy Respiratory: No Currently Using CPAP: No Currently Using BIPAP: No Cardiac: No Neurological: Yes (Brain tumor status post resection) Genitourinary: No Gastrointestinal: Yes C-Diff Musculoskeletal: No Endocrine: Yes (due to proton treatment from brain tumor) Hypothyroidsim HEENT: No Cancer: Yes Brain, Uterine Did You Recieve Any Treatments: Yes What Type of Treatment Did You: Chemotherapy, Radiation, Surgical Intervention Psychosocial: No Integumentary: No Blood Disorders: No Family Medical History Reviewed Nursing Family Hx No Pertinent Family Hx Physical Exam Vital Signs Vital Signs - First Documented 06/17/21 09:55 Pulse 82 Resp 18 B/P (MAP) 148/88 (108) Pulse Ox 100 O2 Delivery Room Air Capillary Refill : Height, Weight, BMI Height: '" Weight: lbs. oz. kg; 32.00 BMI Method: General Appearance: No Apparent Distress, Chronically ill HEENT: PERRL/EOMI, Pharynx Normal Neck: Non Tender, Supple Respiratory: Lungs Clear, Normal Breath Sounds Cardiovascular: Regular Rate, Rhythm, No Murmur Gastrointestinal: Non Tender, Soft, Abnormal Bowel Sounds (Hyperactive) Back: Normal Inspection, No CVA Tenderness, No Vertebral Tenderness Extremity: Normal Range of Motion, Non Tender, No Calf Tenderness Neurologic/Psychiatric: Alert, Oriented x3 Skin: Normal Color, Warm/Dry Progress/Results/Core Measures Suspected Sepsis SIRS Temperature: Pulse: Respiratory Rate: Laboratory Tests 06/17/21 10:20: White Blood Count 4.4 Blood Pressure / Mean: Laboratory Tests 06/17/21 10:20: Creatinine 0.69, Platelet Count 182, Total Bilirubin 0.3 Results/Orders Lab Results Laboratory Tests Test 06/17/21 10:20 06/17/21 10:25 Range/Units White Blood Count 4.4 4.3-11.0 10^3/uL Red Blood Count 3.63 L 3.80-5.11 10^6/uL Hemoglobin 11.4 L 11.5-16.0 g/dL Hematocrit 34 L 35-52 % Mean Corpuscular Volume 94 80-99 fL Mean Corpuscular Hemoglobin 31 25-34 pg Mean Corpuscular Hemoglobin Concent 33 32-36 g/dL Red Cell Distribution Width 16.1 H 10.0-14.5 % Platelet Count 182 130-400 10^3/uL Mean Platelet Volume 9.1 9.0-12.2 fL Immature Granulocyte % (Auto) 0 % Neutrophils (%) (Auto) 79 H 42-75 % Lymphocytes (%) (Auto) 6 L 12-44 % Monocytes (%) (Auto) 8 0-12 % Eosinophils (%) (Auto) 7 0-10 % Basophils (%) (Auto) 1 0-10 % Neutrophils # (Auto) 3.5 1.8-7.8 10^3/uL Lymphocytes # (Auto) 0.3 L 1.0-4.0 10^3/uL Monocytes # (Auto) 0.3 0.0-1.0 10^3/uL Eosinophils # (Auto) 0.3 0.0-0.3 10^3/uL Basophils # (Auto) 0.0 0.0-0.1 10^3/uL Immature Granulocyte # (Auto) 0.0 0.0-0.1 10^3/uL Neutrophils % (Manual) 81 % Lymphocytes % (Manual) 5 % Monocytes % (Manual) 5 % Eosinophils % (Manual) 9 % Basophils % (Manual) 0 % Band Neutrophils 0 % Blood Morphology Comment NORMAL Sodium Level 141 135-145 MMOL/L Potassium Level 3.8 3.6-5.0 MMOL/L Chloride Level 109 H 98-107 MMOL/L Carbon Dioxide Level 21 21-32 MMOL/L Anion Gap 11 5-14 MMOL/L Blood Urea Nitrogen 8 7-18 MG/DL Creatinine 0.69 0.60-1.30 MG/DL Estimat Glomerular Filtration Rate 85 BUN/Creatinine Ratio 12 Glucose Level 94 70-105 MG/DL Calcium Level 8.6 8.5-10.1 MG/DL Corrected Calcium 8.8 8.5-10.1 MG/DL Magnesium Level 2.1 1.6-2.4 MG/DL Total Bilirubin 0.3 0.1-1.0 MG/DL Aspartate Amino Transf (AST/SGOT) 10 5-34 U/L Alanine Aminotransferase (ALT/SGPT) 16 0-55 U/L Alkaline Phosphatase 60 40-136 U/L Total Protein 6.4 6.4-8.2 GM/DL Albumin 3.8 3.2-4.5 GM/DL Free Thyroxine 0.81 0.70-1.48 NG/DL TSH [place] Testing 6.49 H 0.35-4.94 UIU/ML Urine Color YELLOW Urine Clarity CLEAR Urine pH 6.0 5-9 Urine Specific [place] 1.025 H 1.016-1.022 Urine Protein NEGATIVE NEGATIVE Urine Glucose (UA) NEGATIVE NEGATIVE Urine Ketones NEGATIVE NEGATIVE Urine Nitrite NEGATIVE NEGATIVE Urine Bilirubin NEGATIVE NEGATIVE Urine Urobilinogen 0.2 < = 1.0 MG/DL Urine Leukocyte Esterase TRACE H NEGATIVE Urine RBC (Auto) TRACE-I H NEGATIVE Urine RBC 0-2 /HPF Urine WBC 2-5 /HPF Urine Squamous Epithelial Cells 0-2 /HPF Urine Crystals NONE /LPF Urine Bacteria NEGATIVE /HPF Urine Casts NONE /LPF Urine Mucus NEGATIVE /LPF Urine Culture Indicated NO My Orders Orders - JEIMY ARGUELLES MD Cbc With Automated Diff (06/17/21 10:11) Comprehensive Metabolic Panel (06/17/21 10:11) Magnesium (06/17/21 10:11) Ua Culture If Indicated (06/17/21 10:11) Ed Iv/Invasive Line Start (06/17/21 10:11) Lactated Ringers (Lr 1000 Ml Iv Solution (06/17/21 10:15) Manual Differential (06/17/21 10:20) Thyroid Analyzer (06/17/21 10:42) Free T4 (Free Thyroxine) (06/17/21 10:20) Lactated Ringers (Lr 1000 Ml Iv Solution (06/17/21 12:00) Lactated Ringers (Lr 1000 Ml Iv Solution (06/17/21 12:01) Medications Given in ED Current Medications Medications Dose Ordered Sig/Armando Route Start Time Stop Time Status Last Admin Dose Admin Lactated Ringer's 1,000 ml @ 0 mls/hr Q0M ONCE IV 06/17/21 10:15 06/17/21 10:16 DC 06/17/21 10:29 0 MLS/HR Lactated Ringer's 1,000 ml @ 0 mls/hr Q0M ONCE IV 06/17/21 12:00 06/17/21 12:01 DC 06/17/21 12:13 0 MLS/HR Vital Signs/I&O 06/17/21 09:55 Pulse 82 Resp 18 B/P (MAP) 148/88 (108) Pulse Ox 100 O2 Delivery Room Air Capillary Refill : Progress Note : Progress Note Seen and evaluated. IV, labs and UA ordered. LR 1 L bolus. Monitor patient. Declines pain or nausea medicine. 1246: We have given second dose of LR 1 L bolus and she is actually doing better now. I have discussed the case with Dr. Sánchez, patient's primary care physician. She will follow as needed. Patient primarily sees her oncologist at and she will follow-up there. We will send a copy of the labs to [facility]. She will follow up with her radiation oncology tomorrow. We did discuss diet and hydration. Discharged home with return precautions. Patient verbalized understanding instructions and agreement with plan. Departure Impression Primary Impression: Dehydration Additional Impressions: Radiation colitis Diarrhea Qualified Codes: R19.7 - Diarrhea, unspecified Disposition: HOME, SELF-CARE Condition: Improved Departure-Patient Inst. Decision time for Depature: 12:48 Referrals: ROBIN SÁNCHEZ DO (PCP/Family) Primary Care Physician Patient Instructions: Dehydration, Adult ED, Diarrhea, Adult ED Add. Discharge Instructions: Drink plenty of fluids by taking small sips frequently of something like Gatorade or similar that is water down some. Clear a light diet for the next few days and then advance as tolerated. Follow-up with your radiation oncolo gist for continued treatment and for further evaluation and instructions. Return for worse pain, fever, vomiting, weakness, breathing problems or other concerns as needed. Copy Copies To 1: ROBIN SÁNCHEZ TIMOTHY D MD Jun 17, 2021 10:34
[2021-06-17 10:36] LABS: BILIRUBIN,URINE NEGATIVE (NEGATIVE); CLARITY,URINE CLEAR; COLOR,URINE YELLOW; GLUCOSE, URINE (UA) NEGATIVE (NEGATIVE); KETONES,URINE NEGATIVE (NEGATIVE); LEUKOCYTE ESTERASE ,URINE TRACE (NEGATIVE); NITRITE,URINE NEGATIVE (NEGATIVE); PROTEIN,URINE NEGATIVE (NEGATIVE)
[2021-06-17 10:51] LABS: ALBUMIN 3.8 GM/DL (3.2-4.5); BILIRUBIN,TOTAL 0.3 MG/DL (0.1-1.0); CALCIUM 8.6 MG/DL (8.5-10.1); CREATININE SERUM 0.69 MG/DL (0.60-1.30); MAGNESIUM 2.1 MG/DL (1.6-2.4); POTASSIUM 3.8 MMOL/L (3.6-5.0); TOTAL PROTEIN 6.4 GM/DL (6.4-8.2)
[2021-06-17 10:56] LABS: BACTERIA,URINE NEGATIVE /HPF; RBC,URINE 0-2 /HPF; SQUAMOUS EPITHELIAL CELL,UR 0-2 /HPF
[2021-06-17 11:09] LABS: BAND NEUTROPHILS 0 %; BASOPHILS % (MANUAL) 0 %; EOSINOPHILS % (MANUAL) 9 %; LYMPHOCYTES % (MANUAL) 5 %; MONOCYTES % (MANUAL) 5 %; NEUTROPHILS % (MANUAL) 81 %; RBC MORPH NORMAL
[2021-06-17 11:28] LABS: TSH (THYROID ANALYZER) 6.49 UIU/ML (0.35-4.94)
[2021-06-17 12:30] LABS: FREE T4 (FREE THYROXINE) 0.81 NG/DL (0.70-1.48)
[2021-06-17 13:30] VITALS: BP 118/79
== END 2021-06-17 13:30 | disposition home or self-care (01) ==
LOC: EDUNIT# 09:44 → ER 09:50
DX: E86.0 Dehydration (principal); K52.0 Gastroenteritis and colitis due to radiation; E03.9 Hypothyroidism, unspecified; Z79.890 Hormone replacement therapy; Z79.82 Long term (current) use of aspirin; Z79.899 Other long term (current) drug therapy
CPT/HCPCS: 36415; 80053; 81000; 83735; 84439; 84443; 85007; 85027

== ENCOUNTER 2021-07-29 11:05 | Outpatient (CLI) | payer MEDICARE, OTHER ==
[2021-07-29] MEDS ORDERED: NS IV 1000 ML 1,000 ML IV SCH (11:30)
[2021-07-29 11:35] VITALS: BP 116/80
== END 2021-07-29 13:17 | disposition home or self-care (01) ==
LOC: SDC 11:05
PROVIDERS: ATTEND Family Medicine
DX: E86.0 Dehydration (principal); R19.7 Diarrhea, unspecified
CPT/HCPCS: 96360

== ENCOUNTER → 2021-08-12 | Outpatient (CLI) | payer MEDICARE, OTHER ==
[2021-08-12 14:22] LABS: BASOPHILS % (AUTO) 0 % (0-10); EOSINOPHILS % (AUTO) 1 % (0-10); HEMATOCRIT 30 % (35-52); HEMOGLOBIN 9.5 g/dL (11.5-16.0); LYMPHOCYTES # (AUTO) 0.4 10^3/uL (1.0-4.0); LYMPHOCYTES % (AUTO) 10 % (12-44); MEAN CORPUSCULAR HEMOGLOBIN 31 pg (25-34); MEAN CORPUSCULAR HGB CONC 32 g/dL (32-36); MEAN CORPUSCULAR VOLUME 97 fL (80-99); MONOCYTES # (AUTO) 0.3 10^3/uL (0.0-1.0); MONOCYTES % (AUTO) 7 % (0-12); NEUTROPHILS # (AUTO) 3.3 10^3/uL (1.8-7.8); NEUTROPHILS % (AUTO) 80 % (42-75); PLATELET COUNT 198 10^3/uL (130-400); WHITE BLOOD COUNT 4.2 10^3/uL (4.3-11.0)
[2021-08-12 14:35] LABS: ALBUMIN 3.8 GM/DL (3.2-4.5)
[2021-08-12 14:36] LABS: POTASSIUM 3.7 MMOL/L (3.6-5.0)
[2021-08-12 14:38] LABS: TOTAL PROTEIN 7.3 GM/DL (6.4-8.2)
--- NOTE | 2021-08-12 14:39 | Diagnostic Imaging Report ---
INDICATION: Persistent cough. TIME OF EXAM: 2:36 PM. COMPARISON: No prior studies are available for comparison. FINDINGS: The heart size is normal. The right chest wall port has its tip overlying the SVC. The lungs are clear. No infiltrates are detected. There is no effusion or pneumothorax. IMPRESSION: No acute cardiopulmonary process is detected. Dictated by: Dictated on workstation # [id number]
[2021-08-12 14:40] LABS: BILIRUBIN,TOTAL 0.2 MG/DL (0.1-1.0)
[2021-08-12 14:42] LABS: CREATININE SERUM 0.8 MG/DL (0.60-1.30)
[2021-08-12 14:51] LABS: ERYTHROCYTE SEDIMENTATION RATE 82 MM/HR (0-30)
== END ==
LOC: RAD 13:47
PROVIDERS: ATTEND Family Medicine
DX: R05.3 Chronic cough (principal); R09.81 Nasal congestion; Z20.822 Contact with and (suspected) exposure to COVID-19
CPT/HCPCS: 36415; 71046; 80053; 85025; 85652; 87015; 87045; 87046; 87899

== ENCOUNTER → 2021-08-19 | Outpatient (CLI) | payer MEDICARE, OTHER ==
[~2021-08-19] VITALS: Ht 157.5 cm; Wt 76.7 kg
[~2021-08-19] MED LIST changes: +DIPH1TAB25 PO; +L.AC1CAP6 PO; +NS IV 1000 ML 1,000 ML IV SCH; +NS IV 1000 ML 1,000 ML ONE; +PHEN95TA30 PO
[2021-08-19 09:15] VITALS: BP 131/86
== END ==
LOC: SDC 09:14
PROVIDERS: ATTEND Family Medicine
DX: R19.7 Diarrhea, unspecified (principal)
CPT/HCPCS: 96360

== ENCOUNTER → 2021-10-18 | Outpatient (CLI) | payer MEDICARE, OTHER ==
[~2021-10-18] MED LIST changes: +HEParin (CENTRAL IV FLUSH) 500 UNIT/5 ML SYR IV ONE; +HEParin (CENTRAL IV FLUSH) 500 UNIT/5 ML SYR ONE; -NS IV 1000 ML 1,000 ML IV SCH; -NS IV 1000 ML 1,000 ML ONE
[2021-10-18 10:00] VITALS: BP 118/78
== END ==
LOC: SDC 10:14
PROVIDERS: ATTEND Internal Medicine Hematology & Oncology
DX: Z45.2 Encounter for adjustment and management of vascular access device (principal); C54.1 Malignant neoplasm of endometrium
CPT/HCPCS: 96523

== ENCOUNTER → 2022-08-06 | Outpatient (CLI) | payer MEDICARE, OTHER ==
[~2022-08-06] MED LIST changes: -HEParin (CENTRAL IV FLUSH) 500 UNIT/5 ML SYR IV ONE; -HEParin (CENTRAL IV FLUSH) 500 UNIT/5 ML SYR ONE
== END ==
LOC: WOUNDCARE 12:01
PROVIDERS: ATTEND Family Medicine
DX: N30.40 Irradiation cystitis without hematuria (principal); W88.8XXA Exposure to other ionizing radiation, initial encounter; R30.0 Dysuria; R35.0 Frequency of micturition; Z85.42 Personal history of malignant neoplasm of other parts of uterus
CPT/HCPCS: 99212